=== PATIENT | male | born 1965 | race Caucasian/White ===

== ENCOUNTER 2024-11-17 14:33 | Inpatient (IN) | payer MEDICAID, SELFPAY ==
[2024-11-17] VITALS (21 sets, daily range): BP systolic 97–180; BP diastolic 63–104; PULSE 85–154; RESP 10–27; TEMP 32–37.1; O2SAT 92–100; BMI 28.2
--- NOTE | ~2024-11-17 | CT_ITS ---
EXAMINATION: CT ABDOMEN PELVIS WITH IV CONTRAST HISTORY: severe LLQ pain, distention COMPARISON: There are no prior studies for comparison. TECHNIQUE: CT scan of the abdomen and pelvis was performed following administration of 85 mL Omnipaque 350 using standard departmental protocol. Coronal and sagittal reformatted images were generated and reviewed. Oral contrast material was not administered at the request of the referring physician. This CT exam was performed with one or more of the following dose reduction techniques: automated exposure control, adjustment of the mA and/or kV according to patient size, use of iterative reconstruction technique. DLP: 818 mGy-cm FINDINGS: LOWER CHEST: There is subsegmental atelectasis at both lung bases. There is no pleural effusion. CARDIOVASCULATURE: The heart is normal in size. There is no pericardial effusion. LIVER: The liver is normal in size and contour. No liver mass is identified. The hepatic and portal veins are patent. GALLBLADDER / BILE DUCTS: The gallbladder is unremarkable. There is no intra or extrahepatic biliary ductal dilatation. SPLEEN: The spleen is normal in size. No focal splenic lesion is identified. PANCREAS: The pancreas is unremarkable in appearance. ADRENAL GLANDS: There are bilateral adrenal masses. The mass on the right measures 3.2 cm. On the left, there are 2 masses measuring 2.3 and 3.2 cm. KIDNEYS/RETROPERITONEUM: No renal calculi are identified. There is no hydronephrosis. No renal masses are identified. LYMPH NODES: No abdominal or pelvic lymphadenopathy. VASCULATURE: The abdominal aorta is normal in caliber. MESENTERY/PERITONEUM: There is a large amount of free intraperitoneal gas, consistent with bowel perforation. No ascites is identified. STOMACH: The stomach is unremarkable. SMALL BOWEL: There are matted small bowel loops in the right lower quadrant which demonstrate wall thickening. COLON: There is diffuse diverticulosis of the colon. There is wall thickening of the sigmoid colon which is adherent to small bowel loops. There is a fluid collection in the right lower quadrant measuring 5.8 x 1.5 x 2.3 cm, compatible with an abscess. APPENDIX: Normal. URINARY BLADDER/PELVIC ORGANS: The urinary bladder is collapsed, limiting evaluation. The prostate is normal in size. BONES / SOFT TISSUES: No suspicious bony or soft tissue abnormalities. CT/CT abdomen pelvis w IV con IMPRESSION: 1. Large amount of free intraperitoneal gas, consistent with bowel perforation. There is an inflammatory process in the right lower quadrant with matted small bowel loops demonstrating wall thickening adjacent to the sigmoid colon which demonstrates diverticula. There is an associated 5.8 x 1.5 x 2.3 cm abscess. 2. Findings were discussed with Dr. Arguello in the emergency room on 11/17/2024 at 4:20 PM. 3. Bilateral adrenal masses as described. In the absence of a known primary malignancy, these likely represent adenomas. If there is a known primary malignancy, adrenal protocol CT is recommended. Electronically signed by: Musa You MD 11/17/2024 04:23 PM [facility] [place]
--- NOTE | ~2024-11-17 | XR_ITS ---
CLINICAL HISTORY: ett confirmation 1 view chest x-ray Comparison: None Findings: Endotracheal tube tip 5 cm above jerome. Nonspecific right basilar consolidation. Question pneumonia, please correlate. Left lung clear. Heart size normal. No acute bony abnormality. Impression: Endotracheal tube as above Nonspecific right basilar consolidation This document has been electronically signed by: Edouard Harper MD on 11/17/2024 21:13:23
--- NOTE | ~2024-11-17 | XR_ITS ---
CLINICAL HISTORY: hypoxia 1 view chest x-ray. Comparison: None Findings: The lungs are slightly underexpanded. Ill-defined right lower lobe density noted. No effusion or pneumothorax. Cardiac and mediastinal contours are stable. No acute osseous abnormality Impression: The patient has been extubated. The new right lower lobe density most likely reflects a region of atelectasis. Continued follow-up recommended. This document has been electronically signed by: Kyle Talbot MD on 11/19/2024 14:33:38
--- NOTE | ~2024-11-17 | CT_ITS ---
EXAMINATION: CT ABDOMEN AND PELVIS WITH CONTRAST CLINICAL INFORMATION: Perforated diverticulitis. Increased leukocytosis. COMPARISON: CT dated November 17, 2024. TECHNIQUE: Multidetector volumetric images were obtained from the superior aspect of the liver through the pubic symphysis following administration 85 mL of Omnipaque 350 intravenous contrast. Sagittal and coronal reformatted images were obtained on the technologist's workstation. Oral contrast: No This CT examination was performed using dose optimization techniques as appropriate, variously including the following: *Automated exposure control *Adjustment of mA and/or kV according to patient size (this includes techniques or standardized protocols for targeted exams where dose is matched to indication/reason for exam; i.e. extremities or head) *Use of iterative reconstruction technique FINDINGS: LUNG BASES: Airspace disease with air bronchograms in the right lung base and right middle lobe. Bilateral pleural effusions, moderate volume. Pulmonary patchy groundglass in the left upper lobe and right middle lobe. LIVER, GALLBLADDER, AND BILIARY TREE: Liver measures 18 cm. No focal mass. Portal veins and hepatic veins and intrahepatic portion of the IVC are patent. No pericholecystic fluid collection or gallbladder wall thickening. No intrahepatic or extrahepatic biliary ductal dilatation. PANCREAS: Punctate calcification in the uncinate process. No focal lesion. No main pancreatic ductal dilatation. No peripancreatic fluid collections. SPLEEN: 7 cm. No focal mass. ADRENAL GLANDS: Lobulated nodular lesions both adrenal glands similar since prior examination on the right measuring 3 cm and on the left measuring 3.2 cm. KIDNEYS AND URETERS: No hydronephrosis. No gross renal mass. Subcentimeter cystic lesions in both kidneys. Normal enhancement pattern of the renal parenchyma. BLADDER: Fluid-filled nearly collapsed. GASTROINTESTINAL TRACT: Status post colostomy likely distal transverse colon. Multiple gas and fluid-filled prominent small bowel loops. Numerous diverticula throughout the large intestine. There is some edematous wall throughout the small bowel loops and the ostomy site and transverse colon. There are multiple different sizes peripheral enhancing fluid collections throughout the peritoneal cavity, the largest beneath the right abdominal rectus muscles in the peritoneal cavity into the properitoneal fat. No gross pneumoperitoneum. No pneumatosis intestinalis. There is no gas within the portal system or the mesenteric veins. ABDOMINAL WALL: Posterior surgical infraumbilical midline laparotomy with edema. Edematous ostomy site. Edema pattern throughout the deep fat planes of the right hemiabdomen and posterior abdomen lumbar region. LYMPH NODES: Numerous prominent lymph nodes in the mesentery and to a lesser extent retroperitoneum. VASCULAR: Mixed plaques throughout the distal abdominal aorta wall and iliac arteries. No aneurysm or dissection. Calcified plaques in the thoracic aorta and the coronary arteries.. PELVIC VISCERA: The prostate gland is not enlarged. Dystrophic calcifications. Mildly prominent seminal vesicles. OSSEOUS STRUCTURES: Multilevel thoracolumbar spondylosis. Schmorl node in superior endplate of T9 and the endplates of T12-L1 and L2. No acute fracture or gross listhesis in the axial skeleton. Sclerosis and the sacroiliac joints. CT/CT abdomen pelvis w IV con IMPRESSION: Status post partial bowel resection and ostomy with edematous large intestine and small intestine suggesting enterocolitis. Multifocal different sizes peritoneal abscesses. Acute airspace disease, lung bases right middle lobe and bilateral pleural effusions. Resolved pneumoperitoneum. Fleischner guidelines were followed. Electronically signed by: Dexter Osborn MD 11/24/2024 09:17 AM [facility]
--- NOTE | 2024-11-17 14:56 | ECG_ITS ---
Test Reason : SEPSIS Blood Pressure : */* mmHG Vent. Rate : 125 BPM Atrial Rate : 125 BPM P-R Int : 132 ms QRS Dur : 68 ms QT Int : 292 ms P-R-T Axes : 64 -28 49 degrees QTcB Int : 421 ms Sinus tachycardia Low voltage QRS Nonspecific ST abnormality Abnormal ECG When compared with ECG of 10-Oct-2008 14:11, Vent. rate has increased by 43 bpm QRS axis Shifted left Referred By: Annalee Ramírez Electronically Signed By: MARGIE WILKES MD
--- NOTE | 2024-11-17 15:07 | ED_ITS ---
HPI - Abdominal Pain General Chief Complaint: Abdominal Pain Stated Complaint: ABD PAIN PER EMS Time Seen by Provider: 11/17/24 14:40 Source: patient and old records reviewed Mode of arrival: ambulatory Limitations: no limitations History of Present Illness ED Provider: NAIDA FUENTES narrative: 58 yo male with no PMH other than pyloric stenosis repair as an infant who does not go to the doctor and takes no medications reports 3 days of worsening L sided abdominal pain with fevers/chills today and then nausea. He has not had any vomited. He denies any prior colonoscopy and no hx of diverticulitis. He is not able to eat or drink. He states this has never happened before. MD elicited complaint: abdominal pain Pertinent past history: none Onset (ago): day(s) (3) Pain Consistency: constant Location: [facility] Severity: moderate Quality: aching Radiation: none Migration to: no migration Exacerbating factors: eating and movement Relieving factors: nothing Associated symptoms: nausea, fever and chills Related Data Allergies Allergy/AdvReac Type Severity Reaction Status Date / Time No Known Allergies Allergy Mild NOT Verified 11/17/24 14:54 APPLICABLE Review of Systems Review of Systems Constitutional : No Weight loss, pos Fever, pos Chills ENT/Mouth : No sore throat, No Rhinorrhea Eyes: No Swelling, No Redness Cardiovascular : No Chest Pain, No SOB, NoEdema Respiratory : No Cough, No Sputum, No Wheezing Gastrointestinal : Positive Nausea, no Vomiting, positive Diarrhea, positive abdominal Pain, No Hematochezia, No Melena Genitourinary : No Dysuria, No Urinary Frequency, No Hematuria, No Urgency Musculoskeletal : No joint pain, No Myalgias, No Joint Swelling Skin : No Skin Lesions, No rash Neuro : No Weakness, No Numbness, No Dizziness, No Headache All other systems reviewed and are negative. [facility] Past Medical History Attestation statement: The following information was validated with the patient. Source: old records reviewed Medical History (Updated 11/17/24 @ 16:09 by Annalee Ramírez DO) No pertinent past medical history Social History Social History (Updated 11/17/24 @ 16:42 by Annalee Ramírez DO) Alcohol intake: former Patient Tobacco Use Status: Current everyday Tobacco user Substance Use Type: Marijuana Physical Exam ED Vital Signs: Vital Signs - 24 hr 11/17/24 14:52 11/17/24 16:00 11/17/24 16:35 Temperature 98.4 F 98.8 F Pulse Rate 124 H 113 H Respiratory Rate 20 18 Blood Pressure 174/102 H 173/95 H Pulse Oximetry 94 92 93 Oxygen Delivery Method Room Air Room Air Room Air BMI result Body Mass Index 28.2 Appearance: Alert. Oriented X3. No acute distress. Eyes: Pupils equal, round and reactive to light. ENT: Pharynx normal. Neck: Normal inspection. Neck supple. CVS: Normal heart rate and rhythm. Pulses normal. Respiratory: No respiratory distress. Breath sounds normal. Abdomen: distended with guarding and ttp in L mid abdomen Skin: Skin warm and dry. Normal skin color. Normal skin turgor. Extremities: No lower extremity edema. No calf ttp Neuro: Oriented X 3. No motor deficit. No sensory deficit. CN2-12 intact Medical Decision Making Medical Decision Making [facility] Narrative: 58 yo male no PMH but does not follow with doctors here with c/o L sided abdominal pain along with nausea and fevers/chills. He has a very tender abdomen on exam at this time basic labs, IVF x 2L, EKG, CT scan for renal colic, mass, perforation, diverticulitis. IV dilaudid for pain ordered, given exam empiric zosyn ordered. Differential Diagnosis Differential Diagnoses: The differential diagnosis associated with the presentation includes renal colic, SBO, mass, diverticulitis, perf Admission/Observation Consideration of admission/observation: Escalation of care including admission/observation considered admit to OR/surgery Consult Healthcare Provider Management of the patient was discussed with: Home Designer (Dr. Rico notified 405pm after I reviewed initial images) Dr. Rico to take him to OR Lab Data [facility] Lab Attestation statement: I reviewed the patient's lab results. 11/17/24 15:08 11/17/24 15:08 Labs: Lab Results 11/17/24 11/17/24 11/17/24 Range/Units 15:07 15:08 15:24 WBC 22.7 H (4.8-10.8) X10*3/uL RBC 5.96 H (4.60-5.80) X10*6/uL Hgb 18.3 H (14.0-18.0) g/dl Hct 51.9 (42.0-52.0) % MCV 87.1 (80.0-98.0) fL MCH 30.7 (27.0-33.0) pg MCHC 35.3 (31.0-36.0) g/dl RDW 13.3 (11.0-16.0) % Plt Count 309 (160-400) X10*3/uL MPV 8.8 L (9.4-12.4) fL Immature Gran % (Auto) 0.5 H (0.0-0.4) % Neut % (Auto) 90.8 H (45-73) % Lymph % (Auto) 4.4 L (20-40) % [place] % (Auto) 4.1 (2-11) % Eos % (Auto) 0.1 (0-4) % Baso % (Auto) 0.1 (0-2) % Lymph # (Auto) 1.0 L (1.2-4.9) X10*3/uL [place] # (Auto) 0.9 (0.1-1.2) X10*3/uL Eos # (Auto) 0.0 (0.0-0.4) X10*3/uL Baso # (Auto) 0.0 (0.0-0.2) X10*3/uL Abs Immat Gran (auto) 0.11 H (0.00-0.03) X10*3/uL Absolute Neuts (auto) 20.6 H (2.0-8.3) x10*3/uL Absolute Nucleated RBC 0.000 (0.0-0.012) X10*3/uL Nucleated RBC % (auto) 0.0 (0.0-0.2) /100WBC Smear Tech's Comments VERIFIED Sodium 137 (135-145) mmol/L Potassium 4.0 (3.3-5.1) mmol/L Chloride 102 (96-108) mmol/L Carbon Dioxide 24 (22-29) mmol/L Anion Gap 15 (12-20) BUN 18 H (9-16) mg/dL Creatinine 0.85 (0.5-1.4) mg/dL Estim Creat Clear Calc 96.8 Estimated GFR > 60 Random Glucose 138 H (60-115) mg/dL Lactic Acid 1.8 (0.5-2.0) mmol/L Calcium 10.4 H (8.4-10.2) mg/dL Magnesium 2.0 (1.6-2.6) mg/dL Total Bilirubin 0.9 (0.0-1.0) mg/dL Direct Bilirubin 0.3 (0.0-0.5) mg/dL AST 16 (5-37) U/L ALT 10 (0-40) U/L Alkaline Phosphatase 82 (39-117) U/L Troponin I High Sens < 2.7 (<3.5-35.0) ng/L Total Protein 8.2 H (6.5-8.0) g/dL Albumin 4.0 (3.5-5.0) g/dL Lipase 10 (8-78) U/L Ethyl Alcohol < 10 mg/dL Influenza Type A (TARYN) Negative (Negative) Influenza Type B (TARYN) Negative (Negative) Influenza A & B Note See Note Independent Interpretation I performed an independent interpretation of an: EKG and CT Scan (free air) Interpretation: Rate: 125 Rhythm: sinus tachycardia [place]: left Normal P waves. Normal PETE. Normal QRS complex. ST T wave : no STEFANI, normal qTC: 421 prior studies: no acute ischemia The study has been interpreted contemporaneously by me. . Radiology Impression Discussion of test interpretation with radiology: I discussed test interpretation with the radiologist and I have reviewed the radiologist's reading. Radiologist Impression: 418pm diffuse free air ?abscess 6 x 1.5. x 2cm ?abscess Independent Historian Clinical information obtained from an independent historian. History obtained from or confirmed by: EMS Medications Administered Discontinued Medications Generic Name Dose Route Start Last Admin Trade Name Rylandq PRN Reason Stop Dose Admin Hydromorphone HCl 1 mg 11/17/24 15:04 11/17/24 15:14 Hydromorphone Hcl 1 Mg/Ml Syringe IVPUSH 11/17/24 15:05 1 mg ONCE ONE Administration Protocol Hydromorphone HCl 1 mg 11/17/24 16:20 11/17/24 16:28 Hydromorphone Hcl 1 Mg/Ml Syringe IVPUSH 11/17/24 16:21 1 mg ONCE ONE Administration Protocol Lactated Ringer's 1,000 mls @ 999 mls/hr 11/17/24 15:04 11/17/24 15:36 Lr IV 11/17/24 16:04 999 mls/hr .Q1H1M ONE Administration Lactated Ringer's 1,000 mls @ 999 mls/hr 11/17/24 15:04 11/17/24 15:40 Lr IV 11/17/24 16:04 999 mls/hr .Q1H1M ONE Administration Piperacillin Sod/Tazobactam 50 mls @ 100 mls/hr 11/17/24 15:04 11/17/24 16:24 Sod 3.375 gm/ Sodium Chloride IV 11/17/24 15:33 Infused ONCE ONE Infusion Iohexol 85 ml 11/17/24 15:58 11/17/24 15:58 Iohexol 350 Mg/Ml 100 Ml Infus..Btl IV 11/17/24 15:59 85 ml ONCE ONE Administration Ondansetron HCl 4 mg 11/17/24 15:04 11/17/24 15:13 Ondansetron Hcl 4 Mg/2 Ml Vial IVPUSH 11/17/24 15:05 4 mg ONCE ONE Administration Critical Care Time Critical Care Time Critical Care Time: Yes Total Critical Care Time: 45 Attestation: IVF x 2L, IV dilaudid with improvement in pain, surgery consult I attest to this time spent taking care of the patient Discharge Plan Discharge Clinical Impression: Perforation bowel Elevated WBC count Qualifiers: Leukocytosis type: unspecified Qualified Code(s): D72.829 - Elevated white blood cell count, unspecified Patient Disposition: Admitted As Inpatient Print Language: Croatian
[2024-11-17] MEDS: ondansetron HCL 4 MG/2 ML VIAL IVPUSH (15:13)
[2024-11-17] MEDS: HYDROmorphone HCl 1 MG/ML SYRINGE IVPUSH ×2 (15:14→16:28)
[2024-11-17 15:20] LABS: Basophils Percent Auto 0.1 % (0-2); Eosinophils Percent Auto 0.1 % (0-4); Hematocrit 51.9 % (42.0-52.0); Hemoglobin 18.3 g/dl (14.0-18.0); Imm Gran Abs Auto 0.11 X10*3/uL (0.00-0.03); Imm Gran Pct Auto 0.5 % (0.0-0.4); Lymphocytes Percent Auto 4.4 % (20-40); MANUAL DIFF FLAG SCAN; Mean Corpuscular HGB Conc 35.3 g/dl (31.0-36.0); Mean Corpuscular Hemoglobin 30.7 pg (27.0-33.0); Mean Corpuscular Volume 87.1 fL (80.0-98.0); Mean Platelet Volume 8.8 fL (9.4-12.4); Monocytes Absolute Auto 0.9 X10*3/uL (0.1-1.2); Monocytes Percent Auto 4.1 % (2-11); Neutrophils Absolute Auto 20.6 x10*3/uL (2.0-8.3); Neutrophils Percent Auto 90.8 % (45-73); Platelet Count 309 X10*3/uL (160-400); Red Blood Count 5.96 X10*6/uL (4.60-5.80); Red Cell Distribution Width 13.3 % (11.0-16.0); SCAN SMEAR FLAG 1; White Blood Count 22.7 X10*3/uL (4.8-10.8)
[2024-11-17 15:29] LABS: Lactic Acid 1.8 mmol/L (0.5-2.0)
[2024-11-17] MEDS: Lactated Ringers 1,000 ML 999 ML IV ×3 (15:36→22:49)
[2024-11-17] MEDS: Piperacillin Sodium/Tazobactam 3.375 GM in 0.9 % Sodium Chloride 50 ML IV ×2 (15:37→22:05)
[2024-11-17 15:39] LABS: Troponin-I High Sensitivity < 2.7 ng/L (<3.5-35.0)
[2024-11-17 15:39] LABS: Alanine Aminotransferase 10 U/L (0-40); Anion Gap 15 (12-20); Aspartate Amino Transferase 16 U/L (5-37); Bilirubin Direct 0.3 mg/dL (0.0-0.5); Bilirubin Total 0.9 mg/dL (0.0-1.0); Blood Urea Nitrogen 18 mg/dL (9-16); Calcium 10.4 mg/dL (8.4-10.2); Carbon Dioxide 24 mmol/L (22-29); Chloride 102 mmol/L (96-108); Creatinine Clr Calc Pharmacy 96.8; Estimated Glomerular Filt Rate > 60; Ethanol < 10 mg/dL; Glucose Random 138 mg/dL (60-115); Lipase 10 U/L (8-78); Sodium 137 mmol/L (135-145); Total Protein 8.2 g/dL (6.5-8.0)
[2024-11-17 15:44] LABS: IDNOW Serial# 58CA691E; Influenza A Negative (Negative); Influenza B2 Negative (Negative)
[2024-11-17 15:48] LABS: SLIDE REVIEW VERIFIED
[2024-11-17 15:57] LABS: Alkaline Phosphatase 82 U/L (39-117)
[2024-11-17] MEDS: iohexoL 350 MG/ML 100 ML INFUS..BTL 85 ML IV (15:58)
--- NOTE | 2024-11-17 16:32 | PC.NURSE ---
Report given to SSS
[2024-11-17 16:48] LABS: INTERNATIONAL NORM RATIO 1.1 (0.9-1.1); Prothrombin Time 13.2 SEC (10.9-12.4)
--- NOTE | 2024-11-17 17:03 | P.HPGS_ITS ---
History of Present Illness History of Present Illness Date of Service: 11/17/24 Chief complaint: ABD PAIN PER EMS Narrative: Koko Thomason is a 58 year old male who presents with roughly 4 days of progressively worsening lower abdominal pain. Because of progression of symptoms, he finally sought to be evaluated emergency department. Workup demonstrates significant leukocytosis, and CT scan and pressor for massive free air and phlegmonous changes in the lower abdomen/colon most probably consistent with a perforated sigmoid diverticulitis. Patient was never sought medical attention. He does not know of any known colon comorbidities because he has never been evaluated by a medical care physician. His only past surgical history is infancy for pyloric stenosis. Chart was reviewed and patient evaluated PMFSH Past Medical History Medical History (Updated 11/17/24 @ 17:06 by Josh Rico MD) No pertinent past medical history Social History Social History (Updated 11/17/24 @ 16:42 by Annalee Ramírez DO) Alcohol intake: former Patient Tobacco Use Status: Current everyday Tobacco user Smoked in Last 30 Days: No Use of substances other than those prescribed or required for medical reasons: Yes Substance Use Type: Marijuana Advance Directives: No Advance Directives Information Provided: Yes Meds Allergies Allergy/AdvReac Type Severity Reaction Status Date / Time No Known Allergies Allergy Mild NOT Verified 11/17/24 14:54 APPLICABLE Active Medications: Current Medications Acetaminophen (Acetaminophen 325 Mg Tablet) 650 mg PO Q6H PRN PRN Reason: Pain, Mild 1-3,fever,headache Calcium Carbonate (Calcium Carbonate 750 Mg Tab.Chew) 750 mg PO Q4H PRN PRN Reason: Heartburn Magnesium Hydroxide (Milk Of Magnesia 30 Ml Oral.Susp) 30 ml PO DAILY PRN PRN Reason: Constipation Melatonin (Melatonin 3 Mg Tablet) 6 mg PO BEDTIME PRN PRN Reason: Insomnia Sodium Chloride (0.9 % Sodium Chloride Flush 3 Ml Syringe) 3 ml IVFLUSH QSHIFT TJ Physical Exam Vital Signs: Vital Signs: Last Vital Signs Temp 98.8 F 11/17/24 16:35 Pulse 113 H 11/17/24 16:35 Resp 18 11/17/24 16:35 BP 173/95 H 11/17/24 16:35 Pulse Ox 93 11/17/24 16:35 O2 Del Method Room Air 11/17/24 16:35 BMI result Body Mass Index 28.2 Const: Other: Very ill-appearing male in significant abdominal distress. Chest: Other: Chest breath sounds bilaterally, HS 1 in 2. GI: Other: Rigid abdomen throughout. Guarding, rebound, especially lower abdomen. Results Results Labs: Short CBC 11/17/24 Range/Units 15:08 WBC 22.7 H (4.8-10.8) X10*3/uL Hgb 18.3 H (14.0-18.0) g/dl Hct 51.9 (42.0-52.0) % Plt Count 309 (160-400) X10*3/uL BMP 11/17/24 15:08 Sodium 137 Potassium 4.0 Chloride 102 Carbon Dioxide 24 BUN 18 H Creatinine 0.85 Calcium 10.4 H Liver Function 11/17/24 Range/Units 15:08 Total Bilirubin 0.9 (0.0-1.0) mg/dL Direct Bilirubin 0.3 (0.0-0.5) mg/dL AST 16 (5-37) U/L ALT 10 (0-40) U/L Alkaline Phosphatase 82 (39-117) U/L Albumin 4.0 (3.5-5.0) g/dL Assessment and Plan (1) Perforation bowel: Status: Acute (2) Elevated WBC count: Qualifiers: Leukocytosis type: unspecified Qualified Code(s): D72.829 - Elevated wh ite blood cell count, unspecified Status: Acute (3) Sepsis: Status: Acute Plan Situation of perforated viscus was reviewed with the patient and emergent need for surgical intervention discussed. Risks, benefits, alternatives of exploratory laparotomy with probable bowel resection most probably sigmoid colon with end-colostomy and Tori's pouch were reviewed with the patient and included but not limited to bleeding, numbness, pain, scarring, cardiac or pulmonary issues, wound issues, ostomy issues and the patient wishes to proceed. Restorative measures will be undertaken and once in OR room was available, patient will be taken to the operating room. All questions answered. Consent signed. Quality Stroke Does the patient have a stroke diagnosis?: No VTE Prior VTE?: No VTE Risk Level:: Surgical - low VTE Device Contraindication: N/A - Device Ordered VTE Drug Contraindication: Treatment Not Indicated Procedures Date of Service Date of Service: 11/17/24
--- NOTE | 2024-11-17 17:29 | HO.ANESPROP2 ---
HPI - Anesthesia Eval Consult details Narrative: Bowel perforation PMFSH Active Problems Active Problems: All Active Problems Sepsis (Acute) Perforation bowel (Acute) Elevated WBC count (Acute) Past Medical History Medical History (Updated 11/17/24 @ 17:06 by Josh Rico MD) No pertinent past medical history Family History Family history of problems with anesthesia: No Surgical History History of Problems with Anesthesia: No Social History Social History (Updated 11/17/24 @ 16:42 by Annalee Ramírez DO) Alcohol intake: former Patient Tobacco Use Status: Current everyday Tobacco user Substance Use Type: Marijuana Meds Allergies Allergy/AdvReac Type Severity Reaction Status Date / Time No Known Allergies Allergy Mild NOT Verified 11/17/24 14:54 APPLICABLE Active Medications: Current Medications Acetaminophen (Acetaminophen 325 Mg Tablet) 650 mg PO Q6H PRN PRN Reason: Pain, Mild 1-3,fever,headache Calcium Carbonate (Calcium Carbonate 750 Mg Tab.Chew) 750 mg PO Q4H PRN PRN Reason: Heartburn Magnesium Hydroxide (Milk Of Magnesia 30 Ml Oral.Susp) 30 ml PO DAILY PRN PRN Reason: Constipation Melatonin (Melatonin 3 Mg Tablet) 6 mg PO BEDTIME PRN PRN Reason: Insomnia Sodium Chloride (0.9 % Sodium Chloride Flush 3 Ml Syringe) 3 ml IVFLUSH QSHIFT TJ Exam Height,Weight and Vital Signs: Height 5 ft 7 in Weight 81.647 kg Last Vital Signs Temp 98.8 F 11/17/24 16:35 Pulse 113 H 11/17/24 16:35 Resp 18 11/17/24 16:35 BP 173/95 H 11/17/24 16:35 Pulse Ox 93 11/17/24 16:35 O2 Del Method Room Air 11/17/24 16:35 Pertinent Lab Results Pertinent Lab Results: Laboratory Tests 11/17/24 11/17/24 11/17/24 15:07 15:08 15:24 WBC 22.7 H RBC 5.96 H Hgb 18.3 H Hct 51.9 MCV 87.1 MCH 30.7 MCHC 35.3 RDW 13.3 Plt Count 309 MPV 8.8 L Immature Gran % (Auto) 0.5 H Neut % (Auto) 90.8 H Lymph % (Auto) 4.4 L [place] % (Auto) 4.1 Eos % (Auto) 0.1 Baso % (Auto) 0.1 Lymph # (Auto) 1.0 L [place] # (Auto) 0.9 Eos # (Auto) 0.0 Baso # (Auto) 0.0 Abs Immat Gran (auto) 0.11 H Absolute Neuts (auto) 20.6 H Absolute Nucleated RBC 0.000 Nucleated RBC % (auto) 0.0 Smear Tech's Comments VERIFIED PT INR Sodium 137 Potassium 4.0 Chloride 102 Carbon Dioxide 24 Anion Gap 15 BUN 18 H Creatinine 0.85 Estim Creat Clear Calc 96.8 Estimated GFR > 60 Random Glucose 138 H Lactic Acid 1.8 Calcium 10.4 H Magnesium 2.0 Total Bilirubin 0.9 Direct Bilirubin 0.3 AST 16 ALT 10 Alkaline Phosphatase 82 Troponin I High Sens < 2.7 Total Protein 8.2 H Albumin 4.0 Lipase 10 Ethyl Alcohol < 10 Influenza Type A (TARYN) Negative Influenza Type B (TARYN) Negative Influenza A & B Note See Note Blood Type Antibody Screen 11/17/24 11/17/24 16:17 16:19 WBC RBC Hgb Hct MCV MCH MCHC RDW Plt Count MPV Immature Gran % (Auto) Neut % (Auto) Lymph % (Auto) [place] % (Auto) Eos % (Auto) Baso % (Auto) Lymph # (Auto) [place] # (Auto) Eos # (Auto) Baso # (Auto) Abs Immat Gran (auto) Absolute Neuts (auto) Absolute Nucleated RBC Nucleated RBC % (auto) Smear Tech's Comments PT 13.2 H INR 1.1 Sodium Potassium Chloride Carbon Dioxide Anion Gap BUN Creatinine Estim Creat Clear Calc Estimated GFR Random Glucose Lactic Acid Calcium Magnesium Total Bilirubin Direct Bilirubin AST ALT Alkaline Phosphatase Troponin I High Sens Total Protein Albumin Lipase Ethyl Alcohol Influenza Type A (TARYN) Influenza Type B (TARYN) Influenza A & B Note Blood Type O Positive Antibody Screen NEGATIVE Airway Mallampati Class: II TM Dist: >3cm Neck ROM: Full Adult Head Mouth w/Numbe Teeth: 1. loose Loose/Missing/Broken Teeth: No Heart: RRR Lungs: CTA Assessment and Plan Assessment Anesthesia Assessment: Anesthesia Plan Discussed and Chart Reviewed Final Anesthetic Review Family History of Problems with Anesthesia: No History of Problems with Anesthesia: No NPO: No ASA Class: II and Emergency Final Preanesthetic Review: No Changes in Pt Med Stat, Meds/Allgs Chart Reviewed, Consent Obtained/Reviewed and Anes Risks/Benef Reviewed Patient Risk: Low Procedure Risk: Intermediate Anesthetic Plan Anesthetic Plan: GA Disposition: Inp. Admit - ICU
--- NOTE | 2024-11-17 18:01 | PC.NURSE ---
transfered to OR
--- NOTE | 2024-11-17 20:11 | P.OP_ITS ---
Operative Note Operative Note Date of Service: 11/17/24 Narrative: Preoperative diagnosis: [] Perforated viscus, sepsis Postop diagnosis: [] Perforated sigmoid diverticulitis, acute suppurative peritonitis, profound fecal contamination of abdominal cavity Procedure [] exploratory laparotomy, sigmoid resection, takedown splenic flexure, end colostomy, Tori's pouch, Surgeon: [] Jacky Television Repairman: [] Type of Anesthesia: [] General Indication for surgery: [] Patient had profound perforated sigmoid diverticulitis with acute suppurative peritonitis and fecal peritonitis involving the entire abdominal cavity. Cultures were obtained. Sigmoid colon was markedly edematous, phlegmonous, thickened, with small-bowel adhered to the perforation site. Sigmoid colon was intraluminal adhered to the pelvic left sidewall and sacral promontory area. Moderate corpulent abdomen Findings: [] Patient brought to the operating room, placed on operative table supine position, after an adequate level of general anesthesia was induced, patient was abdomen was prepped and draped in usual sterile fashion using a lower midline incision, this carried down through skin, subcutaneous tissue, and linea alba. Posterior fascia and peritoneum were opened and extended along the length of the incision. A big gush of free air exited the abdominal cavity once the peritoneum was opened. Findings were as noted above. Patient had profound acute suppurative peritonitis from fecal perforation sigmoid diverticulitis. Sigmoid colon demonstrated extensive diverticular disease. Small bowel was adhered to the perforation site and taken down. Packs and retractors were placed to enhance exposure. Sigmoid colon had its lateral peritoneal reflection taken down using combination of blunt, sharp, and Bovie dissection. The sigmoid colon was intimately adhered to the left pelvic sidewall and pelvic brim as well as the posterior parietal peritoneum. Meticulous dissection using blunt, sharp, Bovie, and ligature mixture was required to free this thickened markedly phlegmonous sigmoid colon up from the surrounding structures. Once adequately mobilized, the distal colon was transected at the desired location, rectosigmoid junction ,using ANNIE thick/green stapler. The mesentery to the sigmoid colon was sequentially taken down staying very close to the mesenteric wall of the sigmoid colon using double firing of ligature device. At the left colon/sigmoid colon junction, ANNIE thick/green stapler was used to transect the bowel here. Specimen was passed off. The lateral peritoneal reflection of the left colon was taken along with the splenic flexure to allow adequate mobilization for ostomy placement to reach the proposed ostomy site without tension. The abdominal cavity was very very copiously irrigated and secured hemostasis. A left lower quadrant ostomy was made at the desired location away from the incision and the umbilicus as well as the bony prominences using a muscle- splitting incision. Ostomy was able to be brought out with the appropriate orientation through this with minimal tension and was well-perfused. Abdominal cavity was again very copiously irrigated and secured hemostasis. Incision was closed in mass closure fascia using 1. Looped PDS. Skin was closed using widely spaced interrupted inverted dermal 3-0 Vicryl sutures followed by skin ulices and dressing. Ostomy was then circumferentially secured using seromuscular to dermal interrupted 3-0 Vicryl sutures. Staple line of the ostomy was opened using Bovie. Ostomy was again viable although edematous and inflamed. Stool was coming out of this once open. Ostomy appliance was immediate placed. Incision was infiltrated with 0.5% Marcaine at completion. Sponge, needle, and instrument counts reported correct. Patient tolerated the procedure well and was to be transferred directly to the ICU intubated for continued restorative measures. EBL minimal
[2024-11-17] MEDS: propofoL 1,000 MG/100 ML VIAL 19.6 MG IVCONT (20:40)
[2024-11-17] MEDS: HYDROmorphone HCl 0.5 MG/0.5 ML SYRINGE IVPUSH (20:41)
--- NOTE | 2024-11-17 21:55 | P.PNCC_ITS ---
Subjective Subjective Date of Service: 11/17/24 Interval History: Clinical Precedent to this date: ?Patient without a significant past medical history other than pyloric stenosis repair as an infant, had presented to emergency room with complaints of 3-4 days of progressive left lower abdominal pain; he had developed fever and chills and nausea today.? He denied any vomiting.? No prior history of abdominal surgeries or pathologies.? Had not been able to eat or drink. Workup in the emergency room revealed a hypertensive, tachycardic patient who has abdominal exam is reported as distended with guarding and tenderness to palpation in the lower abdomen.? His workup reveal a white count of 22.7 H and H of 18.3 and 51.9 respectively, normal electrolytes, BUN of 18, creatinine of 8.5, lactic acid of 1.8 negative urinalysis and negative respiratory panel.? The patient underwent a CT of the abdomen and pelvis with IV contrast which showed large amount of free intraperitoneal gas consistent with bowel perforation.? Inflammatory changes in the right lower quadrant with matted small bowel loops and wall thickening adjacent to the sigmoid colon demonstrating diverticuli along with a 5.8 x 1.5 x 2.3 cm abscess.? Surgical consult was requested and the patient was immediately brought to the OR. Now, pt presents to the ICU postop day 0. status post exploratory laparotomy, sigmoid resection and takedown of splenic flexure, and colostomy and Tori's pouch all due to perforated sigmoid diverticulitis; Acute suppurative peritonitis with profound fecal contamination of the abdominal cavity.? The patient is a high risk of decompensation given significant peritonitis. Critical Care Time (minutes): 75 Physical Exam 2 Vital Signs: Vital Signs: Last Vital Signs Temp 97.1 F 11/17/24 21:38 Pulse 114 H 11/17/24 21:38 Resp 23 H 11/17/24 21:38 BP 105/69 11/17/24 21:38 Pulse Ox 93 11/17/24 21:38 O2 Del Method Mechanical Ventil ation 11/17/24 21:38 O2 Flow Rate 2 11/17/24 20:36 FiO2 30 11/17/24 21:40 BMI result Body Mass Index 28.2 SEPSIS PHYSICAL EXAM DONE AT 21:00. General:? Intubated and sedated Skin:? Mid abdominal incision covered with surgical dressing, clean, dry, intact.? Left-sided abdominal colostomy bag with fresh blood within it, clean surroundings.? Otherwise the rest of the skin is ?Intact, no lesions or rash HEENT:? Normocephalic, atraumatic, buccal mucosa dry. Cardiac:? Tachycardic 110 beats per minute, no murmurs, rubs, gallops. Pulmonary:? Clear to auscultation, no wheezes, rales or rhonchi. Abdomen:? Protuberant, distended, mid abdominal incision as above.? No bowel sounds noted. Musculoskeletal:? Passive range of motion of all 4 extremities are major joints reveal no cogwheeling, no crepitus.? There is no leg edema. Neurologic:? As above, no focal deficits. Vascular:? 2+ pulses upper and lower extremities distally.? Less than 2nd capillary refill of the finger and toes bilaterally upper and lower extremities. NEW LABORATORY DATA:? Pre-surgical laboratory data was reviewed.? Postop labs white count has come down to 14.6, H and H is 17.2 and 49.9 respectively.? Platelets 269. Repeat lactic acid is 2.2.? Sodium 135, potassium 4.7, chloride 106, carbon dioxide 20, anion gap 14, BUN 19, creatinine 0.81.? Random glucose 149, calcium 8.3, albumin 2.8. Objective Data Labs 11/18/24 04:25 11/18/24 04:25 Labs: Laboratory Results - last 24 hr 11/17/24 11/17/24 11/17/24 15:07 15:08 15:24 WBC 22.7 H RBC 5.96 H Hgb 18.3 H Hct 51.9 MCV 87.1 MCH 30.7 MCHC 35.3 RDW 13.3 Plt Count 309 MPV 8.8 L Immature Gran % (Auto) 0.5 H Neut % (Auto) 90.8 H Lymph % (Auto) 4.4 L [place] % (Auto) 4.1 Eos % (Auto) 0.1 Baso % (Auto) 0.1 Lymph # (Auto) 1.0 L [place] # (Auto) 0.9 Eos # (Auto) 0.0 Baso # (Auto) 0.0 Abs Immat Gran (auto) 0.11 H Absolute Neuts (auto) 20.6 H Absolute Nucleated RBC 0.000 Nucleated RBC % (auto) 0.0 Smear Tech's Comments VERIFIED PT INR Sodium 137 Potassium 4.0 Chloride 102 Carbon Dioxide 24 Anion Gap 15 BUN 18 H Creatinine 0.85 Estim Creat Clear Calc 96.8 Estimated GFR > 60 Random Glucose 138 H Lactic Acid 1.8 Calcium 10.4 H Magnesium 2.0 Total Bilirubin 0.9 Direct Bilirubin 0.3 AST 16 ALT 10 Alkaline Phosphatase 82 Troponin I High Sens < 2.7 Total Protein 8.2 H Albumin 4.0 Lipase 10 Ethyl Alcohol < 10 Influenza Type A (TARYN) Negative Influenza Type B (TARYN) Negative Influenza A & B Note See Note Blood Type Antibody Screen 11/17/24 11/17/24 16:17 16:19 WBC RBC Hgb Hct MCV MCH MCHC RDW Plt Count MPV Immature Gran % (Auto) Neut % (Auto) Lymph % (Auto) [place] % (Auto) Eos % (Auto) Baso % (Auto) Lymph # (Auto) [place] # (Auto) Eos # (Auto) Baso # (Auto) Abs Immat Gran (auto) Absolute Neuts (auto) Absolute Nucleated RBC Nucleated RBC % (auto) Smear Tech's Comments PT 13.2 H INR 1.1 Sodium Potassium Chloride Carbon Dioxide Anion Gap BUN Creatinine Estim Creat Clear Calc Estimated GFR Random Glucose Lactic Acid Calcium Magnesium Total Bilirubin Direct Bilirubin AST ALT Alkaline Phosphatase Troponin I High Sens Total Protein Albumin Lipase Ethyl Alcohol Influenza Type A (TARYN) Influenza Type B (TARYN) Influenza A & B Note Blood Type O Positive Antibody Screen NEGATIVE Progress Note: A&P Assessment and plan (1) Perforation bowel: Status: Acute (2) Sepsis: Status: Acute Assessment and Plan: ASSESSMENT : 1. Postop day 0. status post exploratory laparotomy, sigmoid resection and takedown of splenic flexure, and colostomy and Tori's pouch all due to perforated sigmoid diverticulitis by Dr Rico 2. Acute suppurative peritonitis with profound fecal contamination of the abdominal cavity post intra-op washout 3. Acute sepsis due to the above 4. Acute kidney injury with BUN to creatinine ratio greater than 20 due to volume depletion 5. Clinical dehydration 6. Acute hypoalbuminemia 7. Acute hemo concentration due to 5. 8. Acute metabolic and lactic acidosis due to all the above. 9. Incidental bilateral adrenal masses likely to represent adenomas but in need of outpatient follow-up. Plan PLAN OF CARE: The patient was transferred to the ICU from the PACU given his high risk of decompensation.? He has received 1.5 L of fluid thus far, an additional 1 L of lactated Ringer's will be given followed by maintenance fluids, albumin replacement.? I will start him back on Zosyn every 6 hours and will cover him with a single dose of Diflucan, which can be continued upon consulting with Dr. Livingston. ?We will continue with hydration, monitor and replace electrolytes as needed.? Patient will be better off continuing to be intubated and sedated.? At this point there is no need for central line as there is plenty of access and the patient does not need vasopressor support. GI PROPHYLAXIS:? IV ppi DVT PROPHYLAXIS:? Pneumatic stockings while in bed. Follow-up focus sepsis exam done at 03:00 on 11/18/2024 VS 111/64, 71, 18, 93% on room air, 98.1 F General:? Intubated and sedated Skin:? Mid abdominal incision covered with surgical dressing, clean, dry, intact.? Left-sided abdominal colostomy bag with fresh blood within it; otherwise unchanged. Cardiac:? Regular, clear S1-S2, no murmurs, rubs, gallops. Pulmonary:? Clear to auscultation, no wheezes, rales or rhonchi. Abdomen:? Protuberant, distended, mid abdominal incision as above.? No bowel sounds noted. Vascular:? 2+ pulses upper and lower extremities distally.? Less than 2nd capillary refill of the finger and toes bilaterally upper and lower extremities. Continue with the above-mentioned plan. Critical care time used for critical evaluation of this patient, diagnosis, treatment and coordination of care, review her records and documentation TOTAL CRITICAL CARE TIME??75 MIN discussion and coordination with consultants, completely separate from any procedures performed. Patient's care was discussed in detail with Dr. Livingston is aware of all the above as well as the plan of care for this patient. Quality Stroke Does the patient have a stroke diagnosis?: No VTE Prior VTE?: No VTE Risk Level:: Surgical - low VTE Device Contraindication: N/A - Device Ordered VTE Drug Contraindication: Treatment Not Indicated
[2024-11-17] MEDS: Lactated Ringers 1,000 ML 100 ML IVCONT (21:56)
[2024-11-17 22:00] LABS: Appearance Urine Clear; Color Urine Dark Yellow; Glucose Urine UA Negative (Negative); Leukocyte Esterase Urine Negative (Negative); Nitrite Urine Negative (Negative); Specific Gravity - Urine >= 1.030 (1.005-1.025); UMIC TRIGGER UACC YES; Urine Blood Large (3+) (Negative); Urine Ketones Negative (Negative); Urine Protein 100 (2+) mg/dL (Neg-Trace)
[2024-11-17 22:11] LABS: Bacteria Urine None Seen (None Seen); Granular Casts Urine Present; RBC Urine >20 /HPF (0-2); WBC Urine 0-5 /HPF (0-5)
[2024-11-17 22:14] LABS: Basophils Percent Auto 0.2 % (0-2); Hematocrit 49.1 % (42.0-52.0); Hemoglobin 17.2 g/dl (14.0-18.0); Imm Gran Abs Auto 0.03 X10*3/uL (0.00-0.03); Imm Gran Pct Auto 0.2 % (0.0-0.4); Lymphocytes Absolute Auto 0.6 X10*3/uL (1.2-4.9); Lymphocytes Percent Auto 4.2 % (20-40); MANUAL DIFF FLAG SCAN; Mean Corpuscular Volume 88.6 fL (80.0-98.0); Mean Platelet Volume 9.1 fL (9.4-12.4); Monocytes Absolute Auto 0.5 X10*3/uL (0.1-1.2); Monocytes Percent Auto 3.3 % (2-11); Neutrophils Absolute Auto 13.5 x10*3/uL (2.0-8.3); Neutrophils Percent Auto 92.1 % (45-73); Platelet Count 269 X10*3/uL (160-400); Red Blood Count 5.54 X10*6/uL (4.60-5.80); Red Cell Distribution Width 13.2 % (11.0-16.0); SCAN SMEAR FLAG 1; White Blood Count 14.6 X10*3/uL (4.8-10.8)
[2024-11-17 22:26] LABS: Alanine Aminotransferase < 6 U/L (0-40); Albumin Level 2.8 g/dL (3.5-5.0); Alkaline Phosphatase 58 U/L (39-117); Anion Gap 14 (12-20); Aspartate Amino Transferase 14 U/L (5-37); Bilirubin Total 0.9 mg/dL (0.0-1.0); Blood Urea Nitrogen 19 mg/dL (9-16); Calcium 8.3 mg/dL (8.4-10.2); Carbon Dioxide 20 mmol/L (22-29); Chloride 106 mmol/L (96-108); Creatinine Clr Calc Pharmacy 101.6; Estimated Glomerular Filt Rate > 60; Glucose Random 149 mg/dL (60-115); Magnesium 1.8 mg/dL (1.6-2.6); Phosphorus 3.9 mg/dL (2.7-4.5); Potassium 4.7 mmol/L (3.3-5.1); Sodium 135 mmol/L (135-145); Total Protein 5.5 g/dL (6.5-8.0)
[2024-11-17 22:31] LABS: Lactic Acid 2.2 mmol/L (0.5-2.0)
[2024-11-17] MEDS: propofoL 1,000 MG/100 ML VIAL 24.49 MG IVCONT (22:43)
[2024-11-17] MEDS: Fluconazole in NaCl,Iso-Osm 200 MG/100 ML PIGGYBACK 100 MG IV (22:46)
[2024-11-17] MEDS: Albumin Human 25 % 100 ML 133.33 ML IV ×2 (22:54→23:40)
[2024-11-17] MEDS: 0.9 % Sodium Chloride Flush 3 ML SYRINGE IVFLUSH (23:44)
[2024-11-18] VITALS (43 sets, daily range): BP systolic 86–151; BP diastolic 49–89; PULSE 86–112; RESP 18–30; TEMP 32–37.4; O2SAT 89–99; BMI 26.2; BMI 26.6
[2024-11-18 00:04] LABS: Amphetamine Screen Urine Not Detected (Not Detect); Barbiturates, Urine Not Detected (Not Detect); Benzodiazepines Screen Urine Not Detected (Not Detect); Buprenorphine Scr Not Detected (Not Detect); Cannabinoid Screen Urine POSITIVE (Not Detect); Cocaine Screen Urine Not Detected (Not Detect); Fentanyl, urine POSITIVE (Not Detect); Methadone Screen, Urine Not Detected (Not Detect); Opiate Screen Urine Not Detected (Not Detect); Oxycodone Screen Urine Not Detected (Not Detect); Phencyclidine Screen Urine Not Detected (Not Detect)
[2024-11-18 00:08] LABS: Reflex Lactate? Lactic Acid Added
[2024-11-18 00:49] LABS: ~Lactic Acid-LAB USE ONLY 1.4 mmol/L (0.5-2.0)
[2024-11-18] MEDS: fentaNYL citrate/NS 1,000 MCG/100 ML PLAST..BAG 5 MCG IVCONT (02:20)
[2024-11-18] MEDS: propofoL 1,000 MG/100 ML VIAL 24.49 MG IVCONT ×3 (02:27→10:11)
[2024-11-18] MEDS: Piperacillin Sodium/Tazobactam 3.375 GM in 0.9 % Sodium Chloride 50 ML IV ×4 (03:38→22:06)
[2024-11-18] MEDS: Albumin Human 25 % 100 ML 133.33 ML IV ×4 (04:10→08:53)
[2024-11-18 04:41] LABS: VBG Base Excess -0.2 mmol/L; VBG HCO3 22 mmol/L (22-26); VBG pCO2 29 mmHg; VBG pH 7.48 (7.32-7.43); VBG pO2 100 mmHg
[2024-11-18 04:48] LABS: Venous Blood Gas Refer to POC result
[2024-11-18 05:01] LABS: Hematocrit 39.4 % (42.0-52.0); Hemoglobin 13.8 g/dl (14.0-18.0); Mean Corpuscular Hemoglobin 30.9 pg (27.0-33.0); Mean Corpuscular Volume 88.3 fL (80.0-98.0); Mean Platelet Volume 9.6 fL (9.4-12.4); Platelet Count 246 X10*3/uL (160-400); Red Blood Count 4.46 X10*6/uL (4.60-5.80); Red Cell Distribution Width 13.4 % (11.0-16.0)
[2024-11-18 05:02] LABS: WBC ABN SCTR FOR CBC 1
[2024-11-18 05:11] LABS: Alanine Aminotransferase < 6 U/L (0-40); Alkaline Phosphatase 39 U/L (39-117); Anion Gap 14 (12-20); Aspartate Amino Transferase 21 U/L (5-37); Blood Urea Nitrogen 17 mg/dL (9-16); Carbon Dioxide 19 mmol/L (22-29); Chloride 109 mmol/L (96-108); Creatinine Clr Calc Pharmacy 89.6; Estimated Glomerular Filt Rate > 60; Glucose Random 128 mg/dL (60-115); Magnesium 1.9 mg/dL (1.6-2.6); Phosphorus 2.7 mg/dL (2.7-4.5); Potassium 4.8 mmol/L (3.3-5.1); Sodium 137 mmol/L (135-145); Total Protein 5.5 g/dL (6.5-8.0)
[2024-11-18] MEDS: Pantoprazole Sodium 40 MG/10 ML VIAL IVPUSH (05:21)
[2024-11-18] MEDS: Norepinephrine Bitartrate/D5W 8 MG/250 ML PLAST..BAG 7.11 MG IVCONT (05:29)
[2024-11-18 05:43] LABS: Band Neutrophils Percent 14 % (3-5); Lymphocytes Absolute Manual 1.7 X10*3/uL (1.2-4.9); Lymphocytes Percent Manual 11 % (20-40); Monocytes Absolute Manual 0.5 X10*3/uL (0.1-1.2); Monocytes Percent Manual 3 % (2-11); Neutrophils Absolute Manual 12.9 X10*3/uL (2.0-8.3); Neutrophils Percent Manual 72 % (45-73)
[2024-11-18 05:45] LABS: Platelet Estimate NORMAL (NORMAL); Platelet Morphology Comment NORMAL; RBC Morphology NORMAL
--- NOTE | 2024-11-18 06:04 | PC.NURSE ---
Pt to ICU from PACU at 2135, intubated and sedated on propofol?@ 50 mcg/kg/min. ETT #7.5 24 cm?@ lip, on AC settings - see vent assessment. HR 100-110s ST on tele, MAP > 65 -? LR bolus, albumin, zosyn, and fluconazole ordered and administered. Midline abdominal dressing c/d/i, colostomy with small amount of bloody?drainage, stoma red and moist. Safety measures in place. 0230- pt becoming increasingly?restless and reaching towards abdomen, RR 30s. PA made aware, started on fentanyl gtt at 50 mcg/hr for pain control and sedation.? 0530- pt bp soft 86/58, per PA levophed gtt started to maintain?MAP >70. See emar for titrations.?
[2024-11-18] MEDS: Lactated Ringers 1,000 ML 100 ML IVCONT ×2 (07:33→16:35)
[2024-11-18] MEDS: 0.9 % Sodium Chloride Flush 3 ML SYRINGE IVFLUSH ×2 (07:37→15:39)
[2024-11-18] MEDS: Chlorhexidine Gluc Oral Rinse 15 ML MOUTHWASH BUCCAL ×2 (08:53→14:24)
--- NOTE | 2024-11-18 10:15 | MHC.CLN ---
NUTRITION PATIENT INTUBATED AND SEDATED. PERFORATED BOWEL WITH SEPSIS, S/P SURGERY. IF PPN NEEDED, RECOMMEND START PPN AT 40 ML PER HOUR TO PROVIDE 41 G PROTEIN, 96 G DEXTROSE, 480 KCALS. REPLETE LYTES NEEDED. TOTAL KCALS WITH [id number] KCALS (53% OF ESTIMATED NEEDS). FOLLOW FOR PLAN OF CARE. COMPLETE NUTRITION ASSESSMENT TO FOLLOW.
[2024-11-18 11:23] LABS: MRSA Nasal PCR POSITIVE (Negative); SA Nasal PCR POSITIVE (Negative)
[2024-11-18] MEDS: fentaNYL citrate/NS 1,000 MCG/100 ML PLAST..BAG 7.5 MCG IVCONT (12:50)
[2024-11-18] MEDS: dexmedeTOMIDidine HCL/NS 400 MCG/100 ML INFUS..BTL 19.25 MCG IVCONT (12:53)
--- NOTE | 2024-11-18 12:59 | PHA.MEDREC ---
Addendum entered by Scarlet Calderón RPh 11/18/24 14:33: MED REC REVIEWED BY HIRAM Original Note: Pharmacy Consult ? Medication Reconciliation Pharmacy has completed the medication reconciliation. Patient is intubated and sedated. Per MD note: does not go to the doctor and takes no medications .
--- NOTE | 2024-11-18 14:06 | HO.POSTANES ---
Post Anesthesia Evaluation Post Anesthesia Evaluation Date of Service: 11/18/24 Vital Signs: Vital Signs Temp Pulse Resp BP Pulse Ox O2 Del Method FiO2 11/18/24 13:15 25 11/18/24 13:14 102 H 125/76 11/18/24 13:00 99.3 F 101 H 21 H 125/76 93 Mechanical Ventilation 11/18/24 12:00 93 40 11/18/24 12:00 98.8 F 97 20 113/74 95 Mechanical Ventilation 11/18/24 11:00 98.8 F 98 20 107/67 93 Mechanical Ventilation 11/18/24 10:00 98.6 F 95 18 112/75 95 Mechanical Ventilation 11/18/24 09:00 98.4 F 96 25 H 110/66 94 Mechanical Ventilation 11/18/24 08:49 40 11/18/24 08:00 99.1 F 108 H 28 H 110/76 95 Mechanical Ventilation 11/18/24 07:39 95 40 11/18/24 07:24 103 H 93/50 L 11/18/24 07:00 99.1 F 98 18 99/58 L 94 Mechanical Ventilation 11/18/24 06:14 96 94/49 L 11/18/24 06:00 98.8 F 108 H 18 98/53 L 95 Mechanical Ventilation 11/18/24 05:29 100 86/58 L 11/18/24 05:00 97.9 F 103 H 20 93/56 L 95 40 11/18/24 04:19 40 11/18/24 04:00 98.8 F 95 20 97/65 94 Mechanical Ventilation 11/18/24 03:49 94 40 11/18/24 03:00 102 H 22 H 105/67 95 Mechanical Ventilation 11/18/24 02:20 30 H Anesthesia: General Endotracheal-GETA Mental Status: Sedated Pain Control: Satisfactory Nausea/Vomiting: None Hydration: Adequate Anesthesia-Related Issues: No Anes. Related Issues
[2024-11-18] MEDS: propofoL 1,000 MG/100 ML VIAL 14.7 MG IVCONT (14:25)
--- NOTE | 2024-11-18 14:46 | PM.PNGS ---
Subjective Subjective Date of Service: 11/18/24 Interval history: Uneventful evening. Patient on vent sedated. Ostomy putting out stool. Physical Exam Vital Signs: Vital Signs: Last Vital Signs Temp 98.8 F 11/18/24 14:00 Pulse 86 11/18/24 14:00 Resp 25 H 11/18/24 14:00 BP 112/73 11/18/24 14:00 Pulse Ox 95 11/18/24 14:00 O2 Del Method Mechanical Ventil ation 11/18/24 14:00 O2 Flow Rate 2 11/17/24 20:36 FiO2 25 11/18/24 14:00 BMI result Body Mass Index 26.6 GI: Other: Incision clean dry and intact ulices in place. Under dressing applied. Ostomy is noted above copious amount of stool Objective Data Active Medications Acetaminophen (Acetaminophen 325 Mg Tablet) 650 mg PO Q6H PRN PRN Reason: Pain, Mild 1-3,fever,headache Chlorhexidine Gluconate (Chlorhexidine Gluc Oral Rinse 15 Ml Mouthwash) 15 ml BUCCAL TID [facility] Last Admin: 11/18/24 14:24 Dose: 15 ml Documented By: DARLINE Propofol (Diprivan) 1,000 mg in 100 mls @ 0 mls/hr IVCONT .Q0M [facility]; Protocol Last Titration: 11/18/24 14:25 Dose: 20 mcg/kg/min, 9.8 mls/hr Documented By: DARLINE Lactated Ringer's (Lr) 1,000 mls @ 100 mls/hr IVCONT .Q10H [facility] Last Admin: 11/18/24 07:33 Dose: 100 mls/hr Documented By: DARLINE Piperacillin Sod/Tazobactam (Sod 3.375 gm/ Sodium Chloride) 50 mls @ 100 mls/hr IV Q6H [facility] Last Infusion: 11/18/24 11:16 Dose: Infused Documented By: DARLINE Fentanyl (Sublimaze/Ns) 1,000 mcg in 100 mls @ 0 mls/hr IVCONT .Q0M [facility]; Protocol Last Admin: 11/18/24 12:50 Dose: 75 mcg/hr, 7.5 mls/hr Documented By: DARLINE Norepinephrine Bitartrate (Levophed) 8 mg in 250 mls @ 0 mls/hr IVCONT .Q0M [facility]; Protocol Last Titration: 11/18/24 13:14 Dose: 0.07 mcg/kg/min, 9.95 mls/hr Documented By: DARLINE Dexmedetomidine HCl (Precedex) 400 mcg in 100 mls @ 0 mls/hr IVCONT .Q0M [facility]; Protocol Last Admin: 11/18/24 12:53 Dose: 1 mcg/kg/hr, 19.25 mls/hr Documented By: DARLINE Naloxone HCl (Naloxone Hcl 0.4 Mg/Ml Vial) 0.04 mg IVPUSH Q5M PRN PRN Reason: Excessive sedation or RR < 8 Naloxone HCl (Naloxone Hcl 0.4 Mg/Ml Vial) 0.2 mg IVPUSH Q2M PRN PRN Reason: Excessive sedation or RR < 8 Pantoprazole Sodium (Pantoprazole Sodium 40 Mg/10 Ml Vial) 40 mg IVPUSH DAILY@0630 [facility] Last Admin: 11/18/24 05:21 Dose: 40 mg Documented By: CIARA Sodium Chloride (0.9 % Sodium Chloride Flush 3 Ml Syringe) [facility] Last Admin: 11/18/24 07:37 Dose: 3 ml Documented By: DARLINE Labs 11/18/24 04:25 11/18/24 04:25 Labs: Laboratory Results - last 24 hr 11/17/24 11/17/24 11/17/24 15:07 15:08 15:24 MCV 87.1 MCH 30.7 MCHC 35.3 RDW 13.3 Plt Count 309 MPV 8.8 L Immature Gran % (Auto) 0.5 H Neut % (Auto) 90.8 H Lymph % (Auto) 4.4 L [place] % (Auto) 4.1 Eos % (Auto) 0.1 Baso % (Auto) 0.1 Lymph # (Auto) 1.0 L [place] # (Auto) 0.9 Eos # (Auto) 0.0 Baso # (Auto) 0.0 Abs Immat Gran (auto) 0.11 H Absolute Neuts (auto) 20.6 H Absolute Nucleated RBC 0.000 Nucleated RBC % (auto) 0.0 Neutrophils % (Manual) Band Neutrophils % Lymphocytes % (Manual) Monocytes % (Manual) Abs Neuts (Manual) Lymphocytes # (Manual) Monocytes # (Manual) Platelet Estimate Plt Morphology Comment RBC Morphology Smear Tech's Comments VERIFIED PT INR VBG pH VBG pCO2 VBG pO2 VBG HCO3 VBG O2 Saturation VBG Base Excess Anion Gap 15 Estim Creat Clear Calc 96.8 Estimated GFR > 60 Random Glucose 138 H Lactic Acid 1.8 Lactic Acid F/U @ 2Hr Calcium 10.4 H Phosphorus Magnesium 2.0 Total Bilirubin 0.9 Direct Bilirubin 0.3 AST 16 ALT 10 Alkaline Phosphatase 82 Total Protein 8.2 H Albumin 4.0 Lipase 10 Urine Color Urine Appearance Urine pH Ur Specific [place] Urine Protein Urine Glucose (UA) Urine Ketones Urine Blood Urine Nitrite Ur Leukocyte Esterase Urine RBC Urine WBC Ur Squamous Epith Cells Urine Bacteria Hyaline Casts Granular Casts Nasal Screen MRSA (PCR) Nasal S. aureus Screen Nasal MRSA/S.aureus Interp Urine Opiates Screen Ur Buprenorphine Scrn Ur Oxycodone Screen Urine Methadone Screen Urine Fentanyl Screen Ur Barbiturates Screen Ur Phencyclidine Scrn Ur Amphetamines Screen U Benzodiazepines Scrn Urine Cocaine Screen U Marijuana (THC) Screen Ethyl Alcohol < 10 Influenza Type A (TARYN) Negative Influenza Type B (TARYN) Negative Influenza A & B Note See Note Blood Type Antibody Screen 11/17/24 11/17/24 11/17/24 16:17 16:19 21:49 MCV MCH MCHC RDW Plt Count MPV Immature Gran % (Auto) Neut % (Auto) Lymph % (Auto) [place] % (Auto) Eos % (Auto) Baso % (Auto) Lymph # (Auto) [place] # (Auto) Eos # (Auto) Baso # (Auto) Abs Immat Gran (auto) Absolute Neuts (auto) Absolute Nucleated RBC Nucleated RBC % (auto) Neutrophils % (Manual) Band Neutrophils % Lymphocytes % (Manual) Monocytes % (Manual) Abs Neuts (Manual) Lymphocytes # (Manual) Monocytes # (Manual) Platelet Estimate Plt Morphology Comment RBC Morphology Smear Tech's Comments PT 13.2 H INR 1.1 VBG pH VBG pCO2 VBG pO2 VBG HCO3 VBG O2 Saturation VBG Base Excess Anion Gap Estim Creat Clear Calc Estimated GFR Random Glucose Lactic Acid Lactic Acid F/U @ 2Hr Calcium Phosphorus Magnesium Total Bilirubin Direct Bilirubin AST ALT Alkaline Phosphatase Total Protein Albumin Lipase Urine Color Dark Yellow Urine Appearance Clear Urine pH 6.0 Ur Specific [place] >= 1.030 H Urine Protein 100 (2+) H Urine Glucose (UA) Negative Urine Ketones Negative Urine Blood Large (3+) H Urine Nitrite Negative Ur Leukocyte Esterase Negative Urine RBC >20 H Urine WBC 0-5 Ur Squamous Epith Cells 3-5 Urine Bacteria None Seen Hyaline Casts 3-5 Granular Casts Present Nasal Screen MRSA (PCR) Nasal S. aureus Screen Nasal MRSA/S.aureus Interp Urine Opiates Screen Not Detected Ur Buprenorphine Scrn Not Detected Ur Oxycodone Screen Not Detected Urine Methadone Screen Not Detected Urine Fentanyl Screen POSITIVE H Ur Barbiturates Screen Not Detected Ur Phencyclidine Scrn Not Detected Ur Amphetamines Screen Not Detected U Benzodiazepines Scrn Not Detected Urine Cocaine Screen Not Detected U Marijuana (THC) Screen POSITIVE H Ethyl Alcohol Influenza Type A (TARYN) Influenza Type B (TARYN) Influenza A & B Note Blood Type O Positive Antibody Screen NEGATIVE 11/17/24 11/18/24 11/18/24 22:04 00:28 04:25 MCV 88.6 88.3 MCH 31.0 30.9 MCHC 35.0 35.0 RDW 13.2 13.4 Plt Count 269 246 MPV 9.1 L 9.6 Immature Gran % (Auto) 0.2 Cancelled Neut % (Auto) 92.1 H Cancelled Lymph % (Auto) 4.2 L Cancelled [place] % (Auto) 3.3 Cancelled Eos % (Auto) 0.0 Cancelled Baso % (Auto) 0.2 Cancelled Lymph # (Auto) 0.6 L Cancelled [place] # (Auto) 0.5 Cancelled Eos # (Auto) 0.0 Cancelled Baso # (Auto) 0.0 Cancelled Abs Immat Gran (auto) 0.03 Cancelled Absolute Neuts (auto) 13.5 H Cancelled Absolute Nucleated RBC 0.000 0.000 Nucleated RBC % (auto) 0.0 0.0 Neutrophils % (Manual) 72 Band Neutrophils % 14 H Lymphocytes % (Manual) 11 L Monocytes % (Manual) 3 Abs Neuts (Manual) 12.9 H Lymphocytes # (Manual) 1.7 Monocytes # (Manual) 0.5 Platelet Estimate NORMAL Plt Morphology Comment NORMAL RBC Morphology NORMAL Smear Tech's Comments PT INR VBG pH VBG pCO2 VBG pO2 VBG HCO3 VBG O2 Saturation VBG Base Excess Anion Gap 14 14 Estim Creat Clear Calc 101.6 89.6 Estimated GFR > 60 > 60 Random Glucose 149 H 128 H Lactic Acid 2.2 H* Lactic Acid F/U @ 2Hr 1.4 Calcium 8.3 L D 8.0 L Phosphorus 3.9 2.7 Magnesium 1.8 1.9 Total Bilirubin 0.9 1.0 Direct Bilirubin AST 14 21 ALT < 6 < 6 Alkaline Phosphatase 58 39 Total Protein 5.5 L 5.5 L Albumin 2.8 L 3.0 L Lipase Urine Color Urine Appearance Urine pH Ur Specific [place] Urine Protein Urine Glucose (UA) Urine Ketones Urine Blood Urine Nitrite Ur Leukocyte Esterase Urine RBC Urine WBC Ur Squamous Epith Cells Urine Bacteria Hyaline Casts Granular Casts Nasal Screen MRSA (PCR) POSITIVE A Nasal S. aureus Screen POSITIVE A Nasal MRSA/S.aureus Interp SEE NOTE Urine Opiates Screen Ur Buprenorphine Scrn Ur Oxycodone Screen Urine Methadone Screen Urine Fentanyl Screen Ur Barbiturates Screen Ur Phencyclidine Scrn Ur Amphetamines Screen U Benzodiazepines Scrn Urine Cocaine Screen U Marijuana (THC) Screen Ethyl Alcohol Influenza Type A (TARYN) Influenza Type B (TARYN) Influenza A & B Note Blood Type Antibody Screen 11/18/24 04:37 MCV MCH MCHC RDW Plt Count MPV Immature Gran % (Auto) Neut % (Auto) Lymph % (Auto) [place] % (Auto) Eos % (Auto) Baso % (Auto) Lymph # (Auto) [place] # (Auto) Eos # (Auto) Baso # (Auto) Abs Immat Gran (auto) Absolute Neuts (auto) Absolute Nucleated RBC Nucleated RBC % (auto) Neutrophils % (Manual) Band Neutrophils % Lymphocytes % (Manual) Monocytes % (Manual) Abs Neuts (Manual) Lymphocytes # (Manual) Monocytes # (Manual) Platelet Estimate Plt Morphology Comment RBC Morphology Smear Tech's Comments PT INR VBG pH 7.48 H VBG pCO2 29 VBG pO2 100 VBG HCO3 22 VBG O2 Saturation 99.0 VBG Base Excess -0.2 Anion Gap Estim Creat Clear Calc Estimated GFR Random Glucose Lactic Acid Lactic Acid F/U @ 2Hr Calcium Phosphorus Magnesium Total Bilirubin Direct Bilirubin AST ALT Alkaline Phosphatase Total Protein Albumin Lipase Urine Color Urine Appearance Urine pH Ur Specific [place] Urine Protein Urine Glucose (UA) Urine Ketones Urine Blood Urine Nitrite Ur Leukocyte Esterase Urine RBC Urine WBC Ur Squamous Epith Cells Urine Bacteria Hyaline Casts Granular Casts Nasal Screen MRSA (PCR) Nasal S. aureus Screen Nasal MRSA/S.aureus Interp Urine Opiates Screen Ur Buprenorphine Scrn Ur Oxycodone Screen Urine Methadone Screen Urine Fentanyl Screen Ur Barbiturates Screen Ur Phencyclidine Scrn Ur Amphetamines Screen U Benzodiazepines Scrn Urine Cocaine Screen U Marijuana (THC) Screen Ethyl Alcohol Influenza Type A (TARYN) Influenza Type B (TARYN) Influenza A & B Note Blood Type Antibody Screen Microbiology Microbiology Results: Microbiology 11/17/24 19:00 Gram Stain - Final Abdomen - Abdominal Routine Culture - Preliminary Culture in progress. Anaerobic Culture - Preliminary Culture in progress. 11/17/24 15:07 Blood Culture - Preliminary Blood - Venous Prelim: GNR Gram Stain only Procedures Date of Service Date of Service: 11/18/24 Progress Note: A&P Assessment and plan (1) Status post exploratory laparotomy: Status: Acute (2) Perforation of sigmoid colon due to diverticulitis: Status: Acute (3) Sepsis: Status: Acute Plan Continued restorative measures, IV fluids, IV antibiotics, follow urine output, serial labs, vent and wean per ICU team Time Spent With Patient Time: Total time managing care of this patient today ____ minutes. Quality Stroke Does the patient have a stroke diagnosis?: No VTE Prior VTE?: No VTE Risk Level:: Surgical - low VTE Device Contraindication: N/A - Device Ordered VTE Drug Contraindication: Treatment Not Indicated
--- NOTE | 2024-11-18 16:18 | PC.NURSE ---
Assumed care at 0700- pt vented and sedated. Cross titration from propofol to precedex started- see MAR. PSV trial initiated- see vent assessment. B/L soft wrist restraints in place per MD order. RASS -2/-3. Pt agitated and reaching for ETT when awake. At approx 1550 pt. self extubated- this RN, RT, and pigment furnace tender at bedside immediately. All sedation paused, oxymask 7 L applied, O2 sats sustaining >92%. Pt. with strong cough, producing white sputum, LS CTA, no strido appreciated.. Pt. able to talk- AOx4. Pt. SR on tele, HR 70s-90s. Remains on Norepinephrine gtt, titrated per DEC. Aguirre in place, draining dark yellow urine. New ostomy with moist pink stoma, small amount of dark bloody stool. Midline incision dsg changed with Dr. Rico at bedside- small amount of serosanguineous drainage noted. Q2 oral care and repositioning performed, Hovermat system in place, call siddiqui within reach. Plan of care ongoing.
--- NOTE | 2024-11-18 16:42 | PC.RT ---
Pt found to have self extubated. Pt noted restrained. Pt was placed on 7 lpm oxymask and observed. No stridor was noted, pt able to phonate. aware.
[2024-11-18] MEDS: HYDROmorphone HCl 0.5 MG/0.5 ML SYRINGE IVPUSH ×2 (18:01→20:25)
--- NOTE | 2024-11-18 18:08 | P.PNCC_ITS ---
Subjective Subjective Date of Service: 11/18/24 Critical Care Time (minutes): 38 Comment: On ventilator support this morning, later in the afternoon patient got out of part of the ET tube so it was completely removed by us while closely monitoring his respiratory status. Physical Exam 2 Vital Signs: Vital Signs: Last Vital Signs Temp 98.4 F 11/18/24 15:00 Pulse 99 11/18/24 17:39 Resp 28 H 11/18/24 17:00 BP 114/83 11/18/24 17:39 Pulse Ox 90 L 11/18/24 17:30 O2 Del Method Oxymask 11/18/24 17:30 O2 Flow Rate 7 11/18/24 17:00 FiO2 25 11/18/24 16:00 Oxygen Flow Rate 7 11/18/24 17:30 BMI result Body Mass Index 26.6 General: acute distress, ill appearing and tired appearing Nutritional Appearance: well nourished and overweight Eyes: appearance normal, both eyes and all related structures; Alignment and Position: alignment normal and position normal Neck: No lymphadenopathy, no thyromegaly Resp: bilateral air entry equal, occasional added sounds present Cardio: Regular rate, regular rhythm; Heart sounds: S1 normal heart sound present and S2 normal heart sound present GI: Distended, tender, incision site looks good, no guarding, no hepatosplenomegaly : bladder normal to inspection, bladder normal to palpation, no renal angle tenderness Skin: no rashes or lesions noted and elasticity normal Neuro: oriented to person, oriented to place, oriented to time and moves all extremities Objective Data Labs 11/18/24 04:25 11/18/24 04:25 Labs: Laboratory Results - last 24 hr 11/17/24 11/17/24 11/18/24 21:49 22:04 00:28 WBC 14.6 H RBC 5.54 Hgb 17.2 Hct 49.1 MCV 88.6 MCH 31.0 MCHC 35.0 RDW 13.2 Plt Count 269 MPV 9.1 L Immature Gran % (Auto) 0.2 Neut % (Auto) 92.1 H Lymph % (Auto) 4.2 L [place] % (Auto) 3.3 Eos % (Auto) 0.0 Baso % (Auto) 0.2 Lymph # (Auto) 0.6 L [place] # (Auto) 0.5 Eos # (Auto) 0.0 Baso # (Auto) 0.0 Abs Immat Gran (auto) 0.03 Absolute Neuts (auto) 13.5 H Absolute Nucleated RBC 0.000 Nucleated RBC % (auto) 0.0 Neutrophils % (Manual) Band Neutrophils % Lymphocytes % (Manual) Monocytes % (Manual) Abs Neuts (Manual) Lymphocytes # (Manual) Monocytes # (Manual) Platelet Estimate Plt Morphology Comment RBC Morphology VBG pH VBG pCO2 VBG pO2 VBG HCO3 VBG O2 Saturation VBG Base Excess Sodium 135 Potassium 4.7 Chloride 106 Carbon Dioxide 20 L Anion Gap 14 BUN 19 H Creatinine 0.81 Estim Creat Clear Calc 101.6 Estimated GFR > 60 Random Glucose 149 H Lactic Acid 2.2 H* Lactic Acid F/U @ 2Hr 1.4 Calcium 8.3 L D Phosphorus 3.9 Magnesium 1.8 Total Bilirubin 0.9 AST 14 ALT < 6 Alkaline Phosphatase 58 Total Protein 5.5 L Albumin 2.8 L Urine Color Dark Yellow Urine Appearance Clear Urine pH 6.0 Ur Specific [place] >= 1.030 H Urine Protein 100 (2+) H Urine Glucose (UA) Negative Urine Ketones Negative Urine Blood Large (3+) H Urine Nitrite Negative Ur Leukocyte Esterase Negative Urine RBC >20 H Urine WBC 0-5 Ur Squamous Epith Cells 3-5 Urine Bacteria None Seen Hyaline Casts 3-5 Granular Casts Present Nasal Screen MRSA (PCR) POSITIVE A Nasal S. aureus Screen POSITIVE A Nasal MRSA/S.aureus Interp SEE NOTE Urine Opiates Screen Not Detected Ur Buprenorphine Scrn Not Detected Ur Oxycodone Screen Not Detected Urine Methadone Screen Not Detected Urine Fentanyl Screen POSITIVE H Ur Barbiturates Screen Not Detected Ur Phencyclidine Scrn Not Detected Ur Amphetamines Screen Not Detected U Benzodiazepines Scrn Not Detected Urine Cocaine Screen Not Detected U Marijuana (THC) Screen POSITIVE H 11/18/24 11/18/24 04:25 04:37 WBC 15.0 H RBC 4.46 L Hgb 13.8 L Hct 39.4 L MCV 88.3 MCH 30.9 MCHC 35.0 RDW 13.4 Plt Count 246 MPV 9.6 Immature Gran % (Auto) Cancelled Neut % (Auto) Cancelled Lymph % (Auto) Cancelled [place] % (Auto) Cancelled Eos % (Auto) Cancelled Baso % (Auto) Cancelled Lymph # (Auto) Cancelled [place] # (Auto) Cancelled Eos # (Auto) Cancelled Baso # (Auto) Cancelled Abs Immat Gran (auto) Cancelled Absolute Neuts (auto) Cancelled Absolute Nucleated RBC 0.000 Nucleated RBC % (auto) 0.0 Neutrophils % (Manual) 72 Band Neutrophils % 14 H Lymphocytes % (Manual) 11 L Monocytes % (Manual) 3 Abs Neuts (Manual) 12.9 H Lymphocytes # (Manual) 1.7 Monocytes # (Manual) 0.5 Platelet Estimate NORMAL Plt Morphology Comment NORMAL RBC Morphology NORMAL VBG pH 7.48 H VBG pCO2 29 VBG pO2 100 VBG HCO3 22 VBG O2 Saturation 99.0 VBG Base Excess -0.2 Sodium 137 Potassium 4.8 Chloride 109 H Carbon Dioxide 19 L Anion Gap 14 BUN 17 H Creatinine 0.84 Estim Creat Clear Calc 89.6 Estimated GFR > 60 Random Glucose 128 H Lactic Acid Lactic Acid F/U @ 2Hr Calcium 8.0 L Phosphorus 2.7 Magnesium 1.9 Total Bilirubin 1.0 AST 21 ALT < 6 Alkaline Phosphatase 39 Total Protein 5.5 L Albumin 3.0 L Urine Color Urine Appearance Urine pH Ur Specific [place] Urine Protein Urine Glucose (UA) Urine Ketones Urine Blood Urine Nitrite Ur Leukocyte Esterase Urine RBC Urine WBC Ur Squamous Epith Cells Urine Bacteria Hyaline Casts Granular Casts Nasal Screen MRSA (PCR) Nasal S. aureus Screen Nasal MRSA/S.aureus Interp Urine Opiates Screen Ur Buprenorphine Scrn Ur Oxycodone Screen Urine Methadone Screen Urine Fentanyl Screen Ur Barbiturates Screen Ur Phencyclidine Scrn Ur Amphetamines Screen U Benzodiazepines Scrn Urine Cocaine Screen U Marijuana (THC) Screen Microbiology Microbiology Results: Microbiology 11/17/24 15:28 Blood - Venous Blood Culture - Preliminary Prelim: GNR Gram Stain only 11/17/24 19:00 Abdomen - Abdominal Gram Stain - Final 11/17/24 19:00 Abdomen - Abdominal Routine Culture - Preliminary Culture in progress. 11/17/24 19:00 Abdomen - Abdominal Anaerobic Culture - Preliminary Culture in progress. 11/17/24 15:07 Blood - Venous Blood Culture - Preliminary Prelim: GNR Gram Stain only Progress Note: A&P Assessment and plan (1) Perforation bowel: Status: Acute (2) Perforation of sigmoid colon due to diverticulitis: Status: Acute (3) Status post exploratory laparotomy: Status: Acute (4) Elevated WBC count: Status: Acute (5) Sepsis: Status: Acute Plan Perforated viscus: Patient had perforated sigmoid colon possibly secondary to diverticulum, taken to emergent ex lap with end ileostomy on 11/17/2024. Postop course stable, no issues. Incision site looks clean and healthy, covered with simple dressing Blood cultures positive for Gram-negative rods, patient is on Zosyn we will continue with that. His also ordered on fluconazole due to perforated viscus and significant peritonitis Dilaudid for pain Dyspnea: Extubated this afternoon, tolerating liberation from ventilator very well. He is alert and oriented We will do incentive spirometry as tolerated Hypocalcemia: We will replace as per protocol Leukocytosis: WBC count up to 15,000 secondary to peritonitis Anemia: Secondary to major surgery and significant volume repletion. We will transfuse if hemoglobin drops below 7 Prophylaxis: SCD, pantoprazole Quality Stroke Does the patient have a stroke diagnosis?: No VTE Prior VTE?: No VTE Risk Level:: Surgical - low VTE Device Contraindication: N/A - Device Ordered VTE Drug Contraindication: Treatment Not Indicated
[2024-11-18] MEDS: Fluconazole in NaCl,Iso-Osm 200 MG/100 ML PIGGYBACK 100 MG IV (22:06)
[2024-11-19] VITALS (24 sets, daily range): BP systolic 114–167; BP diastolic 48–93; PULSE 60–110; RESP 13–28; TEMP 36.6–37.7; O2SAT 91–98; BMI 26.6
[2024-11-19] MEDS: HYDROmorphone HCl 0.5 MG/0.5 ML SYRINGE IVPUSH ×9 (00:04→22:24)
[2024-11-19] MEDS: 0.9 % Sodium Chloride Flush 3 ML SYRINGE IVFLUSH ×4 (00:19→19:52)
[2024-11-19] MEDS: Lactated Ringers 1,000 ML 100 ML IVCONT ×3 (02:18→22:23)
[2024-11-19] MEDS: Piperacillin Sodium/Tazobactam 3.375 GM in 0.9 % Sodium Chloride 50 ML IV ×4 (04:20→23:39)
[2024-11-19 04:29] LABS: VBG Base Excess 1.9 mmol/L; VBG HCO3 26 mmol/L (22-26); VBG pCO2 39 mmHg; VBG pH 7.42 (7.32-7.43); VBG pO2 44 mmHg
[2024-11-19 04:36] LABS: Venous Blood Gas Refer to POC result
[2024-11-19 04:59] LABS: Basophils Percent Auto 0.3 % (0-2); Eosinophils Percent Auto 0.3 % (0-4); Hematocrit 35.4 % (42.0-52.0); Hemoglobin 11.9 g/dl (14.0-18.0); Imm Gran Abs Auto 0.03 X10*3/uL (0.00-0.03); Imm Gran Pct Auto 0.3 % (0.0-0.4); Lymphocytes Absolute Auto 0.8 X10*3/uL (1.2-4.9); Lymphocytes Percent Auto 8.5 % (20-40); Mean Corpuscular HGB Conc 33.6 g/dl (31.0-36.0); Mean Corpuscular Hemoglobin 30.5 pg (27.0-33.0); Mean Corpuscular Volume 90.8 fL (80.0-98.0); Mean Platelet Volume 10.1 fL (9.4-12.4); Monocytes Absolute Auto 0.6 X10*3/uL (0.1-1.2); Monocytes Percent Auto 6.6 % (2-11); PLT CLUMP 1; Red Cell Distribution Width 13.8 % (11.0-16.0); SCAN SMEAR FLAG 1
[2024-11-19 05:00] LABS: MANUAL DIFF FLAG NO; White Blood Count 9.5 X10*3/uL (4.8-10.8)
[2024-11-19 05:04] LABS: Alanine Aminotransferase 8 U/L (0-40); Albumin Level 3.7 g/dL (3.5-5.0); Alkaline Phosphatase 41 U/L (39-117); Anion Gap 16 (12-20); Aspartate Amino Transferase 24 U/L (5-37); Blood Urea Nitrogen 14 mg/dL (9-16); Calcium 8.8 mg/dL (8.4-10.2); Carbon Dioxide 20 mmol/L (22-29); Chloride 108 mmol/L (96-108); Estimated Glomerular Filt Rate > 60; Glucose Random 99 mg/dL (60-115); Magnesium 2.3 mg/dL (1.6-2.6); Phosphorus 1.8 mg/dL (2.7-4.5); Potassium 4.2 mmol/L (3.3-5.1); Sodium 140 mmol/L (135-145)
[2024-11-19 05:39] LABS: Platelet Count 209 X10*3/uL (160-400)
[2024-11-19] MEDS: Pantoprazole Sodium 40 MG/10 ML VIAL IVPUSH (06:13)
--- NOTE | 2024-11-19 06:35 | PC.NURSE ---
Pt alert and oriented, on 15L NC maintaining spO2 >90%. Pt complains of intermittent shooting pain to abdomen, medicated with prn dilaudid - see emar. Pt provided with an incentive spirometer, educated on hourly use - good technique and effort. Midline dsg c/d/i, colostomy with large amount of brown mushy stool, emptied x1. Pt passed bedside swallow, per PA ok to have sips of water and ice chips. Hygiene offered - pt refused. Safety measures in place - plan of care ongoing.?
--- NOTE | 2024-11-19 10:31 | MHC.CLN ---
F/U PATIENT EXTUBATED 11/18. ACCEPTING WATER. FOLLOW FOR DIET ADVANCEMENT.
--- NOTE | 2024-11-19 11:08 | MHC.CM.PN ---
PT REPORTS HE LIVES WITH, AND CARES FOR, HIS 85 YR OLD MOTHER HE IS INDEPENDENT WITH CARE, HAS NO SERVICES AND NO DME PT REFUSES TO COMPLETE A HCP AT THIS TIME HE HAS NO PCP AND NO INSURANCE HE IS AWARE A REFERRAL WILL BE MADE TO [facility] [place] [facility] DCP: HOME VIA PRIVATE TRANSPORT
--- NOTE | 2024-11-19 12:04 | P.PNCC_ITS ---
Subjective Subjective Date of Service: 11/19/24 Critical Care Time (minutes): 35 Comment: Extubated yesterday, tolerating liberation from ventilator very well He is hemodynamically stable, his pain and other symptoms are well controlled. Physical Exam 2 Vital Signs: Vital Signs: Last Vital Signs Temp 98.0 F 11/19/24 08:00 Pulse 94 11/19/24 11:00 Resp 28 H 11/19/24 11:00 BP 145/87 H 11/19/24 11:00 Pulse Ox 95 11/19/24 11:00 O2 Del Method Nasal Cannula 11/19/24 11:00 O2 Flow Rate 10 11/19/24 11:00 FiO2 25 11/18/24 16:00 Oxygen Flow Rate 7 11/18/24 17:30 BMI result Body Mass Index 26.6 General: Not in any acute distress, resting comfortably in the bed Nutritional Appearance: well nourished and overweight Eyes: appearance normal, both eyes and all related structures; Alignment and Position: alignment normal and position normal Neck: No lymphadenopathy, no thyromegaly Resp: bilateral air entry equal, occasional added sounds present Cardio: Regular rate, regular rhythm; Heart sounds: S1 normal heart sound present and S2 normal heart sound present GI: soft, nontender, no guarding, no hepatosplenomegaly : bladder normal to inspection, bladder normal to palpation, no renal angle tenderness Skin: no rashes or lesions noted and elasticity normal Neuro: oriented to person, oriented to place, oriented to time and moves all extremities Objective Data Labs 11/19/24 04:18 11/19/24 04:18 Labs: Laboratory Results - last 24 hr 11/19/24 11/19/24 04:18 04:25 WBC 9.5 RBC 3.90 L Hgb 11.9 L Hct 35.4 L MCV 90.8 MCH 30.5 MCHC 33.6 RDW 13.8 Plt Count 209 MPV 10.1 Immature Gran % (Auto) 0.3 Neut % (Auto) 84.0 H Lymph % (Auto) 8.5 L [place] % (Auto) 6.6 Eos % (Auto) 0.3 Baso % (Auto) 0.3 Lymph # (Auto) 0.8 L [place] # (Auto) 0.6 Eos # (Auto) 0.0 Baso # (Auto) 0.0 Abs Immat Gran (auto) 0.03 Absolute Neuts (auto) 8.0 Absolute Nucleated RBC 0.000 Nucleated RBC % (auto) 0.0 VBG pH 7.42 VBG pCO2 39 VBG pO2 44 VBG HCO3 26 VBG O2 Saturation 72.0 VBG Base Excess 1.9 Sodium 140 Potassium 4.2 Chloride 108 Carbon Dioxide 20 L Anion Gap 16 BUN 14 Creatinine 0.66 Estim Creat Clear Calc 114.0 Estimated GFR > 60 Random Glucose 99 Calcium 8.8 D Phosphorus 1.8 L Magnesium 2.3 Total Bilirubin 1.0 AST 24 ALT 8 Alkaline Phosphatase 41 Total Protein 6.0 L Albumin 3.7 Microbiology Microbiology Results: Microbiology 11/17/24 15:07 Blood - Venous Blood Culture - Preliminary Prelim: GNR Gram Stain only 11/17/24 15:28 Blood - Venous Blood Culture - Preliminary Prelim: GNR Gram Stain only 11/17/24 19:00 Abdomen - Abdominal Gram Stain - Final 11/17/24 19:00 Abdomen - Abdominal Routine Culture - Preliminary Gram negative karissa 11/17/24 19:00 Abdomen - Abdominal Anaerobic Culture - Preliminary Culture in progress. Progress Note: A&P Assessment and plan (1) Perforation bowel: Status: Acute (2) Perforation of sigmoid colon due to diverticulitis: Status: Acute (3) Status post exploratory laparotomy: Status: Acute (4) Elevated WBC count: Status: Acute Plan Perforated viscus: Patient had perforated sigmoid colon possibly secondary to diverticulum, taken to emergent ex lap with end ileostomy on 11/17/2024. Postop course stable, no issues. Incision site looks clean and healthy, covered with simple dressing Blood cultures positive for Gram-negative rods, patient is on Zosyn we will continue with that. His also on fluconazole due to perforated viscus and significant peritonitis As needed Dilaudid for pain Dyspnea: Extubated yesterday, tolerating liberation from ventilator very well. He is alert and oriented We will do incentive spirometry as tolerated Hypophophatemia: Secondary to poor nutrition currently We will replace as per protocol Anemia: Secondary to major surgery and significant volume repletion. We will transfuse if hemoglobin drops below 7 Prophylaxis: SCD, pantoprazole Quality Stroke Does the patient have a stroke diagnosis?: No VTE Prior VTE?: No VTE Risk Level:: Surgical - low VTE Device Contraindication: N/A - Device Ordered VTE Drug Contraindication: Treatment Not Indicated
--- NOTE | 2024-11-19 13:29 | PM.EVENT ---
Event Note Date of Service: 11/19/24 Event Note: 58 year old man admitted with abd pain for 3 days and found to have free intraperitoneal gas consistent with perforation. Patient was taken to OR for exp lap, sigmoid resection and take down of spenic flexure and colostomy and hartmanns pouch. Found to have peritonitis from profound fecal contamination so admitted to ICU due to high risk for decompensation. extubated 11/18/24 Perforated sigmoid diverticulitis s/p exp lab with colostomy 11/17/24 zosyn and Fluconazole pain management as needed GNR bacteremia continue Zosyn follow final cx Hypophos replete Anemia acute blood loss from surgery monitor HH tx if hem <7 Hypoxia oxygen to keep sats >90 get CXR and BNP DVT prophylaxis with SCD boots Full code Time Spent With Patient Time: Total time managing care of this patient today ____ minutes.
--- NOTE | 2024-11-19 13:48 | P.PNGS_ITS ---
Subjective Subjective Date of Service: 11/19/24 Interval history: Patient was self-extubated. Dental trauma. Otherwise patient is alert , conversant , doing well. Vital signs stable. Physical Exam 2 Vital Signs: Vital Signs: Last Vital Signs Temp 98.5 F 11/19/24 12:00 Pulse 96 11/19/24 13:00 Resp 21 H 11/19/24 13:00 BP 144/93 H 11/19/24 13:00 Pulse Ox 95 11/19/24 13:00 O2 Del Method Nasal Cannula 11/19/24 13:00 O2 Flow Rate 10 11/19/24 13:00 FiO2 25 11/18/24 16:00 Oxygen Flow Rate 7 11/18/24 17:30 BMI result Body Mass Index 26.6 GI: Other: Abdomen is incision clean dry and intact. Skin ulices removed the dressing applied. Ostomy putting out copious amount of stool Objective Data Active Medications Acetaminophen (Acetaminophen 325 Mg Tablet) 650 mg PO Q6H PRN PRN Reason: Pain, Mild 1-3,fever,headache Albuterol/Ipratropium (Albuterol/Iprat 2.5/0.5mg 3 Ml Ampul.Neb) 3 ml INHALE RQ4H WHILE AWAKE [facility] Hydromorphone HCl (Hydromorphone Hcl 0.5 Mg/0.5 Ml Syringe) 0.5 mg IVPUSH Q2H PRN; Protocol PRN Reason: Pain, Moderate(Pain Scale 4-6) Last Admin: 11/19/24 11:21 Dose: 0.5 mg Documented By: DARLINE Lactated Ringer's (Lr) 1,000 mls @ 100 mls/hr IVCONT .Q10H [facility] Last Admin: 11/19/24 12:30 Dose: 100 mls/hr Documented By: DARLINE Piperacillin Sod/Tazobactam (Sod 3.375 gm/ Sodium Chloride) 50 mls @ 100 mls/hr IV Q6H [facility] Last Infusion: 11/19/24 11:55 Dose: Infused Documented By: DARLINE Fluconazole (Diflucan) 200 mg in 100 mls @ 100 mls/hr IV Q24H [facility] Last Infusion: 11/18/24 23:23 Dose: Infused Documented By: CIARA Naloxone HCl (Naloxone Hcl 0.4 Mg/Ml Vial) 0.04 mg IVPUSH Q5M PRN PRN Reason: Excessive sedation or RR < 8 Naloxone HCl (Naloxone Hcl 0.4 Mg/Ml Vial) 0.2 mg IVPUSH Q2M PRN PRN Reason: Excessive sedation or RR < 8 Ondansetron HCl (Ondansetron Hcl 4 Mg/2 Ml Vial) 4 mg IVPUSH Q4H PRN PRN Reason: Nausea and Vomiting Pantoprazole Sodium (Pantoprazole Sodium 40 Mg/10 Ml Vial) 40 mg IVPUSH DAILY@0630 [facility] Last Admin: 11/19/24 06:13 Dose: 40 mg Documented By: CIARA Sodium Chloride (0.9 % Sodium Chloride Flush 3 Ml Syringe) 3 ml IVFLUSH QSHIFT [facility] Last Admin: 11/19/24 07:48 Dose: 3 ml Documented By: DARLINE Labs 11/19/24 04:18 11/19/24 04:18 Labs: Laboratory Results - last 24 hr 11/19/24 11/19/24 04:18 04:25 MCV 90.8 MCH 30.5 MCHC 33.6 RDW 13.8 Plt Count 209 MPV 10.1 Immature Gran % (Auto) 0.3 Neut % (Auto) 84.0 H Lymph % (Auto) 8.5 L Garza % (Auto) 6.6 Eos % (Auto) 0.3 Baso % (Auto) 0.3 Lymph # (Auto) 0.8 L Garza # (Auto) 0.6 Eos # (Auto) 0.0 Baso # (Auto) 0.0 Abs Immat Gran (auto) 0.03 Absolute Neuts (auto) 8.0 Absolute Nucleated RBC 0.000 Nucleated RBC % (auto) 0.0 VBG pH 7.42 VBG pCO2 39 VBG pO2 44 VBG HCO3 26 VBG O2 Saturation 72.0 VBG Base Excess 1.9 Anion Gap 16 Estim Creat Clear Calc 114.0 Estimated GFR > 60 Random Glucose 99 Calcium 8.8 D Phosphorus 1.8 L Magnesium 2.3 Total Bilirubin 1.0 AST 24 ALT 8 Alkaline Phosphatase 41 Total Protein 6.0 L Albumin 3.7 Microbiology Microbiology Results: Microbiology 11/17/24 15:07 Blood Culture - Preliminary Blood - Venous Prelim: GNR Gram Stain only 11/17/24 15:28 Blood Culture - Preliminary Blood - Venous Prelim: GNR Gram Stain only 11/17/24 19:00 Gram Stain - Final Abdomen - Abdominal Routine Culture - Preliminary Gram negative karissa Anaerobic Culture - Preliminary Culture in progress. Procedures Date of Service Date of Service: 11/19/24 Progress Note: A&P Assessment and plan (1) Perforation of sigmoid colon due to diverticulitis: Status: Acute Plan Tentative plan is for patient to be transferred to the floor. Encourage incentive spirometry, out of bed, continue IV antibiotics, p.o. liquids as tolerated Time Spent With Patient Time: Total time managing care of this patient today ____ minutes. Quality Stroke Does the patient have a stroke diagnosis?: No VTE Prior VTE?: No VTE Risk Level:: Surgical - low VTE Device Contraindication: N/A - Device Ordered VTE Drug Contraindication: Treatment Not Indicated
[2024-11-19 14:59] LABS: B Type Natriuretic Peptide 180 pg/mL (<100)
[2024-11-19] MEDS: Albuterol/Iprat 2.5/0.5MG 3 ML AMPUL.NEB INHALE ×2 (15:07→19:49)
[2024-11-19] MEDS: ondansetron HCL 4 MG/2 ML VIAL IVPUSH ×2 (17:16→21:29)
--- NOTE | 2024-11-19 17:54 | PC.NURSE ---
Assumed care at 0700- pt. A&Ox4, c/o abd pain- PRN dilaudid administered per DEC. pt. remains SR on tele, HR 80s-100s with PACs, SBPs 120s-140s with MAPs >65. O2 titrated per VS flowsheet, pt. using Incentive spirometer. Pt with expiratory wheeze, notified- scheduled nebs ordered. Pt. tolerating ice chips and small sips of water- intermittent nausea, PRN zofran administered per DEC. Ostomy emptied x2 for moderate amount dark brown mushy stool. Aguirre removed at approx 1400, [place] cath applied and patient spontaneously voided x1. Dr. Rico at bedside, surgical dressing removed and absorbent packing removed from surgical incision by . Surgical site with small-mod amt serosanguineous drainage- redressed with ABD pad and paper tape. Transfer to ordered by traffic control operator- report given to Guillermo RAYMUNDO, pt. transported to at approx 1730.
[2024-11-19] MEDS: Fluconazole in NaCl,Iso-Osm 200 MG/100 ML PIGGYBACK 100 MG IV (22:23)
[2024-11-20] VITALS (12 sets, daily range): BP systolic 148–162; BP diastolic 81–94; PULSE 74–101; RESP 16–19; TEMP 36.2–37.1; O2SAT 90–93
[2024-11-20] MEDS: HYDROmorphone HCl 0.5 MG/0.5 ML SYRINGE IVPUSH ×9 (00:58→22:26)
[2024-11-20] MEDS: ondansetron HCL 4 MG/2 ML VIAL IVPUSH ×4 (01:02→19:40)
[2024-11-20] MEDS: Piperacillin Sodium/Tazobactam 3.375 GM in 0.9 % Sodium Chloride 50 ML IV ×4 (05:11→22:17)
[2024-11-20] MEDS: Pantoprazole Sodium 40 MG/10 ML VIAL IVPUSH (05:18)
[2024-11-20] MEDS: Albuterol/Iprat 2.5/0.5MG 3 ML AMPUL.NEB INHALE ×2 (08:03→12:04)
[2024-11-20] MEDS: 0.9 % Sodium Chloride Flush 3 ML SYRINGE IVFLUSH ×3 (08:54→23:55)
--- NOTE | 2024-11-20 08:57 | HO.PM.IMPN ---
Subjective Subjective Date of Service: 11/20/24 Physical Exam Vital Signs: Vital Signs: Last Vital Signs Temp 98.2 F 11/20/24 07:15 Pulse 101 H 11/20/24 08:05 Resp 18 11/20/24 08:46 BP 148/87 H 11/20/24 07:15 Pulse Ox 92 11/20/24 07:15 O2 Del Method Nasal Cannula 11/20/24 07:15 O2 Flow Rate 4 11/20/24 07:15 FiO2 25 11/18/24 16:00 Oxygen Flow Rate 3 11/19/24 16:26 BMI result Body Mass Index 26.6 Objective Data Active Medications Acetaminophen (Acetaminophen 325 Mg Tablet) 650 mg PO Q6H PRN PRN Reason: Pain, Mild 1-3,fever,headache Albuterol/Ipratropium (Albuterol/Iprat 2.5/0.5mg 3 Ml Ampul.Neb) 3 ml INHALE RQ4H WHILE AWAKE [facility] Last Admin: 11/20/24 08:03 Dose: 3 ml Documented By: CHANTAL Hydromorphone HCl (Hydromorphone Hcl 0.5 Mg/0.5 Ml Syringe) 0.5 mg IVPUSH Q2H PRN; Protocol PRN Reason: Pain, Moderate(Pain Scale 4-6) Last Admin: 11/20/24 08:46 Dose: 0.5 mg Documented By: VITALY Lactated Ringer's (Lr) 1,000 mls @ 100 mls/hr IVCONT .Q10H [facility] Last Admin: 11/19/24 22:23 Dose: 100 mls/hr Documented By: KATTY Piperacillin Sod/Tazobactam (Sod 3.375 gm/ Sodium Chloride) 50 mls @ 100 mls/hr IV Q6H [facility] Last Infusion: 11/20/24 05:45 Dose: Infused Documented By: KATTY Fluconazole (Diflucan) 200 mg in 100 mls @ 100 mls/hr IV Q24H [facility] Last Infusion: 11/19/24 23:41 Dose: Infused Documented By: KATTY Naloxone HCl (Naloxone Hcl 0.4 Mg/Ml Vial) 0.04 mg IVPUSH Q5M PRN PRN Reason: Excessive sedation or RR < 8 Naloxone HCl (Naloxone Hcl 0.4 Mg/Ml Vial) 0.2 mg IVPUSH Q2M PRN PRN Reason: Excessive sedation or RR < 8 Ondansetron HCl (Ondansetron Hcl 4 Mg/2 Ml Vial) 4 mg IVPUSH Q4H PRN PRN Reason: Nausea and Vomiting Last Admin: 11/20/24 08:48 Dose: 4 mg Documented By: VITALY Pantoprazole Sodium (Pantoprazole Sodium 40 Mg/10 Ml Vial) 40 mg IVPUSH DAILY@0630 [facility] Last Admin: 11/20/24 05:18 Dose: 40 mg Documented By: KATTY Sodium Chloride (0.9 % Sodium Chloride Flush 3 Ml Syringe) 3 ml IVFLUSH QSHIFT [facility] Last Admin: 11/20/24 08:54 Dose: 3 ml Documented By: VITALY Labs 11/19/24 04:18 11/19/24 04:18 Labs: Laboratory Results - last 24 hr 11/19/24 04:18 B-Natriuretic Peptide 180 H Microbiology Microbiology Results: Microbiology 11/17/24 15:28 Blood Culture - Preliminary Blood - Venous Prelim: GNR Gram Stain only 11/17/24 15:07 Blood Culture - Preliminary Blood - Venous Prelim: GNR Gram Stain only 11/17/24 19:00 Gram Stain - Final Abdomen - Abdominal Routine Culture - Final Escherichia coli Anaerobic Culture - Preliminary Culture in progress. Assessment and Plan (1) Perforation bowel: Status: Acute Plan 58 year old man admitted with abd pain for 3 days and found to have free intraperitoneal gas consistent with perforation. Patient was taken to OR for exp lap, sigmoid resection and take down of spenic flexure and colostomy and hartmanns pouch. Found to have peritonitis from profound fecal contamination so admitted to ICU due to high risk for decompensation. extubated 11/18/24 Perforated sigmoid diverticulitis s/p exp lab with colostomy 11/17/24 zosyn and Fluconazole pain management as needed GNR bacteremia wound cx ecoli positive continue Zosyn follow final blood cx Hypophos replete Anemia acute blood loss from surgery monitor HH tx if hem <7 Hypoxia oxygen to keep sats >90 get CXR with atelectasis IS DVT prophylaxis with SCD boots Full code Quality Stroke Does the patient have a stroke diagnosis?: No VTE Prior VTE?: No VTE Risk Level:: Surgical - low VTE Device Contraindication: N/A - Device Ordered VTE Drug Contraindication: Treatment Not Indicated
--- NOTE | 2024-11-20 10:08 | P.PNGS_ITS ---
Subjective Subjective Date of Service: 11/20/24 Interval history: States he feels okay today Does complain of pain on incision Stoma with good output Physical Exam 2 Vital Signs: Vital Signs: Last Vital Signs Temp 98.2 F 11/20/24 07:15 Pulse 101 H 11/20/24 08:05 Resp 18 11/20/24 08:46 BP 148/87 H 11/20/24 07:15 Pulse Ox 92 11/20/24 07:15 O2 Del Method Nasal Cannula 11/20/24 07:15 O2 Flow Rate 4 11/20/24 07:15 FiO2 25 11/18/24 16:00 Oxygen Flow Rate 3 11/19/24 16:26 BMI result Body Mass Index 26.6 Const: Other: Very anxious General: no acute distress Resp: Effort & Inspection: normal respiratory effort Cardio: Rate: regular rate GI: Other: Incision clean, stoma functioning well with good output Palpation (GI): Soft to palpation Objective Data Active Medications Acetaminophen (Acetaminophen 325 Mg Tablet) 650 mg PO Q6H PRN PRN Reason: Pain, Mild 1-3,fever,headache Albuterol/Ipratropium (Albuterol/Iprat 2.5/0.5mg 3 Ml Ampul.Neb) 3 ml INHALE RQ4H WHILE AWAKE [facility] Last Admin: 11/20/24 08:03 Dose: 3 ml Documented By: CHANTAL Hydromorphone HCl (Hydromorphone Hcl 0.5 Mg/0.5 Ml Syringe) 0.5 mg IVPUSH Q2H PRN; Protocol PRN Reason: Pain, Moderate(Pain Scale 4-6) Last Admin: 11/20/24 08:46 Dose: 0.5 mg Documented By: VITALY Lactated Ringer's (Lr) 1,000 mls @ 100 mls/hr IVCONT .Q10H [facility] Last Admin: 11/19/24 22:23 Dose: 100 mls/hr Documented By: KATTY Piperacillin Sod/Tazobactam (Sod 3.375 gm/ Sodium Chloride) 50 mls @ 100 mls/hr IV Q6H [facility] Last Infusion: 11/20/24 05:45 Dose: Infused Documented By: KATTY Fluconazole (Diflucan) 200 mg in 100 mls @ 100 mls/hr IV Q24H [facility] Last Infusion: 11/19/24 23:41 Dose: Infused Documented By: KATTY Naloxone HCl (Naloxone Hcl 0.4 Mg/Ml Vial) 0.04 mg IVPUSH Q5M PRN PRN Reason: Excessive sedation or RR < 8 Naloxone HCl (Naloxone Hcl 0.4 Mg/Ml Vial) 0.2 mg IVPUSH Q2M PRN PRN Reason: Excessive sedation or RR < 8 Ondansetron HCl (Ondansetron Hcl 4 Mg/2 Ml Vial) 4 mg IVPUSH Q4H PRN PRN Reason: Nausea and Vomiting Last Admin: 11/20/24 08:48 Dose: 4 mg Documented By: VITALY Pantoprazole Sodium (Pantoprazole Sodium 40 Mg/10 Ml Vial) 40 mg IVPUSH DAILY@0630 [facility] Last Admin: 11/20/24 05:18 Dose: 40 mg Documented By: KATTY Sodium Chloride (0.9 % Sodium Chloride Flush 3 Ml Syringe) 3 ml IVFLUSH QSHIFT [facility] Last Admin: 11/20/24 08:54 Dose: 3 ml Documented By: VITALY Labs 11/19/24 04:18 11/19/24 04:18 Labs: Laboratory Results - last 24 hr 11/19/24 04:18 B-Natriuretic Peptide 180 H Microbiology Microbiology Results: Microbiology 11/17/24 15:28 Blood Culture - Preliminary Blood - Venous Prelim: GNR Gram Stain only 11/17/24 15:07 Blood Culture - Preliminary Blood - Venous Prelim: GNR Gram Stain only 11/17/24 19:00 Gram Stain - Final Abdomen - Abdominal Routine Culture - Final Escherichia coli Anaerobic Culture - Preliminary Culture in progress. Procedures Date of Service Date of Service: 11/20/24 Progress Note: A&P Assessment and plan (1) Perforation of sigmoid colon due to diverticulitis: Status: Acute Assessment and Plan: Status post Tori's procedure Looks well Very anxious He does not want his diet advanced despite stoma having output Says he is not ready to get out of bed Incentive spirometry Pain management Stoma care I changed his dressings Time Spent With Patient Time: Total time managing care of this patient today ____ minutes. Quality Stroke Does the patient have a stroke diagnosis?: No VTE Prior VTE?: No VTE Risk Level:: Surgical - low VTE Device Contraindication: N/A - Device Ordered VTE Drug Contraindication: Treatment Not Indicated
[2024-11-20] MEDS: Lactated Ringers 1,000 ML 100 ML IVCONT ×2 (10:45→22:16)
[2024-11-20] MEDS: Fluconazole in NaCl,Iso-Osm 200 MG/100 ML PIGGYBACK 100 MG IV (22:16)
[2024-11-21] VITALS (11 sets, daily range): BP systolic 125–171; BP diastolic 82–96; PULSE 75–112; RESP 15–19; TEMP 36.1–37.1; O2SAT 89–94
[2024-11-21] MEDS: HYDROmorphone HCl 0.5 MG/0.5 ML SYRINGE IVPUSH ×8 (01:14→23:41)
[2024-11-21] MEDS: ondansetron HCL 4 MG/2 ML VIAL IVPUSH (01:15)
[2024-11-21] MEDS: Piperacillin Sodium/Tazobactam 3.375 GM in 0.9 % Sodium Chloride 50 ML IV ×4 (04:37→21:41)
[2024-11-21] MEDS: Pantoprazole Sodium 40 MG/10 ML VIAL IVPUSH (06:16)
[2024-11-21] MEDS: Albuterol/Iprat 2.5/0.5MG 3 ML AMPUL.NEB INHALE ×3 (09:15→20:27)
[2024-11-21] MEDS: 0.9 % Sodium Chloride Flush 3 ML SYRINGE IVFLUSH ×2 (09:16→14:36)
--- NOTE | 2024-11-21 09:18 | HO.PM.IMPN ---
Subjective Subjective Date of Service: 11/21/24 Review of Systems F/U consult visit complete, feels he is improving daily. Tolerating PO intake, which is minimal at baseline. States his pain and other symptoms are well controlled a this time. Constitutional Denies N/V, fever or chills Cardiovascular Denies pain, palpitations, diaphoresis Respiratory Denies pain, dyspnea, or wheezing Endorses non-productive cough intermittenly Gastrointestinal Denies N/V Endorses appetite ok Physical Exam Vital Signs: Vital Signs: Last Vital Signs Temp 97.5 F 11/21/24 08:00 Pulse 84 11/21/24 09:16 Resp 15 11/21/24 09:16 BP 154/94 H 11/21/24 08:00 Pulse Ox 90 L 11/21/24 08:00 O2 Del Method Room Air 11/21/24 08:00 O2 Flow Rate 2.0 11/21/24 08:00 FiO2 25 11/18/24 16:00 Oxygen Flow Rate 4 11/20/24 17:00 BMI result Body Mass Index 26.6 Const: General: cooperative, no acute distress, alert and awake Orientation/consciousness: patient oriented x3 Eyes: Pupils: Equal, round and reactive pupils present Resp: Effort & Inspection: normal respiratory effort and able to speak in complete sentences Auscultation: diminished lung sounds bilateral throughout Cardio: Jugular venous distension: no JVD Palpation: normal PMI Rate: regular rate Rhythm: regular rhythm Peripheral pulses: Peripheral pulses 2+ throughout GI: Inspection: Yes incision and Yes other (ostomy) Auscultation: normal bowel sounds Neuro: General: patient oriented x3 and CN's II-XI intact bilaterally Cranial nerves: Yes Equal, round and reactive pupils present and Yes Bilaterally intact EOM present Objective Data Active Medications Acetaminophen (Acetaminophen 325 Mg Tablet) 650 mg PO Q6H PRN PRN Reason: Pain, Mild 1-3,fever,headache Albuterol/Ipratropium (Albuterol/Iprat 2.5/0.5mg 3 Ml Ampul.Neb) 3 ml INHALE RQ4H WHILE AWAKE [facility] Last Admin: 11/21/24 09:15 Dose: 3 ml Documented By: CHANTAL Hydromorphone HCl (Hydromorphone Hcl 0.5 Mg/0.5 Ml Syringe) 0.5 mg IVPUSH Q2H PRN; Protocol PRN Reason: Pain, Moderate(Pain Scale 4-6) Last Admin: 11/21/24 07:23 Dose: 0.5 mg Documented By: KATTY Piperacillin Sod/Tazobactam (Sod 3.375 gm/ Sodium Chloride) 50 mls @ 100 mls/hr IV Q6H [facility] Last Infusion: 11/21/24 05:16 Dose: Infused Documented By: KATTY Fluconazole (Diflucan) 200 mg in 100 mls @ 100 mls/hr IV Q24H [facility] Last Infusion: 11/20/24 23:25 Dose: Infused Documented By: KATTY Naloxone HCl (Naloxone Hcl 0.4 Mg/Ml Vial) 0.04 mg IVPUSH Q5M PRN PRN Reason: Excessive sedation or RR < 8 Naloxone HCl (Naloxone Hcl 0.4 Mg/Ml Vial) 0.2 mg IVPUSH Q2M PRN PRN Reason: Excessive sedation or RR < 8 Ondansetron HCl (Ondansetron Hcl 4 Mg/2 Ml Vial) 4 mg IVPUSH Q4H PRN PRN Reason: Nausea and Vomiting Last Admin: 11/21/24 01:15 Dose: 4 mg Documented By: KATTY Oxycodone HCl (Oxycodone Hcl Immed Release 5 Mg Tablet) 5 mg PO Q4H PRN PRN Reason: Pain, Moderate(Pain Scale 4-6) Sodium Chloride (0.9 % Sodium Chloride Flush 3 Ml Syringe) [facility] Last Admin: 11/21/24 09:16 Dose: 3 ml Documented By: VIKIT Labs 11/19/24 04:18 11/19/24 04:18 Microbiology Microbiology Results: Microbiology 11/17/24 19:00 Gram Stain - Final Abdomen - Abdominal Routine Culture - Final Escherichia coli Anaerobic Culture - Preliminary Culture in progress. 11/17/24 15:28 Blood Culture - Final Blood - Venous Bacteroides thetaiotaomicron 11/17/24 15:07 Blood Culture - Final Blood - Venous Bacteroides thetaiotaomicron Assessment and Plan (1) Perforation bowel: Status: Acute Plan 58 year old man admitted with abd pain x 3 days and found to have free intraperitoneal gas consistent with perforation. Patient was taken to OR for exp lap, sigmoid resection and take down of spenic flexure and colostomy and hartmanns pouch. Found to have peritonitis from profound fecal contamination so admitted to ICU due to high risk for decompensation. extubated 11/18/24 Perforated sigmoid diverticulitis s/p exp lab with colostomy 11/17/24 zosyn and Fluconazole pain management as needed Bacteroides thetaiotaomicron bacteremia wound cx ecoli positive continue Zosyn Hypophos K phos Anemia acute blood loss from surgery monitor HH tx if hem <7 Hypoxia oxygen to keep sats >90 get CXR with atelectasis splinting to improve cough strength IS Medical consultation completed, will sign off. Please consult for any future needs. DVT prophylaxis with SCD boots Full code Quality Stroke Does the patient have a stroke diagnosis?: No VTE Prior VTE?: No VTE Risk Level:: Surgical - low VTE Device Contraindication: N/A - Device Ordered VTE Drug Contraindication: Treatment Not Indicated
--- NOTE | 2024-11-21 10:10 | PM.PNGS ---
Subjective Subjective Date of Service: 11/21/24 Interval history: Feels better this morning. Tolerating clear liquids without nausea or vomiting. Ostomy continues to function well. Has refused to get OOB until this morning and states he will ambulate today. Not using incentive. Does not want his [place] catheter removed, will think about it for later today. Physical Exam Vital Signs: Vital Signs: Last Vital Signs Temp 97.5 F 11/21/24 08:00 Pulse 84 11/21/24 09:16 Resp 15 11/21/24 09:16 BP 154/94 H 11/21/24 08:00 Pulse Ox 91 L 11/21/24 09:48 O2 Del Method Nasal Cannula 11/21/24 09:48 O2 Flow Rate 2 11/21/24 09:48 FiO2 25 11/18/24 16:00 Oxygen Flow Rate 4 11/20/24 17:00 BMI result Body Mass Index 26.6 Const: General: comfortable, no acute distress and alert Orientation/consciousness: patient oriented x3 Resp: Effort & Inspection: normal respiratory effort, not tachypneic, no tracheal deviation and no use of accessory muscles GI: Other: mildly distended incision clean, moderate tenderness surrounding ostomy with large amount of soft stool output Palpation (GI): Soft to palpation and no guarding Skin: General skin exam: no rashes or lesions noted Neuro: General: patient oriented x3 and moves all extremities Objective Data Active Medications Acetaminophen (Acetaminophen 325 Mg Tablet) 650 mg PO Q6H PRN PRN Reason: Pain, Mild 1-3,fever,headache Albuterol/Ipratropium (Albuterol/Iprat 2.5/0.5mg 3 Ml Ampul.Neb) 3 ml INHALE RQ4H WHILE AWAKE [facility] Last Admin: 11/21/24 09:15 Dose: 3 ml Documented By: CHANTAL Hydromorphone HCl (Hydromorphone Hcl 0.5 Mg/0.5 Ml Syringe) 0.5 mg IVPUSH Q2H PRN; Protocol PRN Reason: Pain, Moderate(Pain Scale 4-6) Last Admin: 11/21/24 07:23 Dose: 0.5 mg Documented By: KATTY Piperacillin Sod/Tazobactam (Sod 3.375 gm/ Sodium Chloride) 50 mls @ 100 mls/hr IV Q6H [facility] Last Admin: 11/21/24 09:18 Dose: 100 mls/hr Documented By: TARUN Fluconazole (Diflucan) 200 mg in 100 mls @ 100 mls/hr IV Q24H [facility] Last Infusion: 11/20/24 23:25 Dose: Infused Documented By: KATTY Naloxone HCl (Naloxone Hcl 0.4 Mg/Ml Vial) 0.04 mg IVPUSH Q5M PRN PRN Reason: Excessive sedation or RR < 8 Naloxone HCl (Naloxone Hcl 0.4 Mg/Ml Vial) 0.2 mg IVPUSH Q2M PRN PRN Reason: Excessive sedation or RR < 8 Ondansetron HCl (Ondansetron Hcl 4 Mg/2 Ml Vial) 4 mg IVPUSH Q4H PRN PRN Reason: Nausea and Vomiting Last Admin: 11/21/24 01:15 Dose: 4 mg Documented By: KATTY Oxycodone HCl (Oxycodone Hcl Immed Release 5 Mg Tablet) 5 mg PO Q4H PRN PRN Reason: Pain, Moderate(Pain Scale 4-6) Sodium Chloride (0.9 % Sodium Chloride Flush 3 Ml Syringe) 3 ml IVFLUSH QSHIFT [facility] Last Admin: 11/21/24 09:16 Dose: 3 ml Documented By: TARUN Labs 11/19/24 04:18 11/19/24 04:18 Microbiology Microbiology Results: Microbiology 11/17/24 19:00 Gram Stain - Final Abdomen - Abdominal Routine Culture - Final Escherichia coli Anaerobic Culture - Preliminary Culture in progress. 11/17/24 15:28 Blood Culture - Final Blood - Venous Bacteroides thetaiotaomicron 11/17/24 15:07 Blood Culture - Final Blood - Venous Bacteroides thetaiotaomicron Procedures Date of Service Date of Service: 11/21/24 Progress Note: A&P Assessment and plan (1) Status post exploratory laparotomy: Status: Acute (2) Perforation of sigmoid colon due to diverticulitis: Status: Acute Plan POD #4 s/p exploratory laparotomy, sigmoid resection, takedown splenic flexure, end colostomy, Tori's pouch for Perforated sigmoid diverticulitis, acute suppurative peritonitis, profound fecal contamination of abdominal cavity. Doing overall fairly well but has refused to get OOB postoperatively. VS- remains on supplemental O2. OOB/ambulation and incentive spirometer 10x/hr strongly encouraged. he has promised to do so today and this will help him from a respiratory standpoint. Cont IV abx. Will advance to solid diet. Ostomy education. Time Spent With Patient Time: Total time managing care of this patient today ____ minutes. Quality Stroke Does the patient have a stroke diagnosis?: No VTE Prior VTE?: No VTE Risk Level:: Surgical - low VTE Device Contraindication: N/A - Device Ordered VTE Drug Contraindication: Treatment Not Indicated
[2024-11-21] MEDS: Potassium Phosphate/NS 15 MMOL/250 ML PLAST..BAG 62.5 MMOL IV (12:18)
[2024-11-21] MEDS: oxyCODONE HCl Immed Release 5 MG TABLET PO (12:26)
--- NOTE | 2024-11-21 13:37 | MHC.CM.PN ---
Patients insurance has been updated. He is now active with Medicaid. POD#4. Plan is to advance diet and mobilize patient. Patient does not have a PCP, which is required for [facility]. DP home self care vs STR via BLS.
--- NOTE | 2024-11-21 15:19 | HO.OSTOMY ---
Ostomy Consult: Initial Teaching 59yr old male admitted to [facility] on 11/17/24 see H&P for detailed history and admission.? Consult for new ostomy teaching. ?He had an End Colostomy creation on 11/18/[address] Rico. ?Upon entry into patient's room, he is lying in his bed, he is alert and oriented x 3, he currently has no complaints. ?Introductions were completed, he is agreeable to continuing with teaching. ? We discussed his pain control at 510 at the current moment, he reports increasing the use of his IS and he reports he has not yet ambulated or got out of bed. Patient was educated on the importance of ambulation and that benefits it will provide. He reports understanding and reports he plans to ambulate this afternoon. We began by discussing general knowledge about the Colostomy and questions he had. ?We discussed opening and closing the ostomy pouch. He was able to independently provide a return demonstration on an empty pouch. ?He had not yet emptied his pouch, he reports he is not yet ready to participate - he reports he has not yet watched them empty. He was encouraged to participate in his own care - he agreed to watching the pouch be emptied as his first step. We discussed the importance of emptying pouch when 1/3 to 1/2 full, how to empty pouch, and lining water with toilet paper to prevent splash back. With an empty Coloplast pouch he performed a demonstration. He was also educated on when to contact director of customer service/Dr Rico's office/seek emergency medical treatment. Patient was given some ostomy pouches for transition to home. Aware that Rx written for pouches and rings will be sent by Outpt nurse to [facility] for home delivery.? Reviewed written education with patient and left at bedside for further review. ?He did not watch the education videos supplied by [facility]. He reported at this time less information is best. He reported feeling nauseous just discussing his ostomy. Permission was granted for pouch assessment and a leak was noted at 3 and 9 o'clock.? Stoma is dark necrotic tissue with central red moist viable tissue.? Thick brown stool noted in pouch. Due to leaking he was agreeable to a pouch change. He refused to watch the pouch change, but he did have some questions that lead to further discussion. Coloplast # [id number] applied vut to 50MM round. Will assess at tomorrow?s teaching for increased readiness for teaching. ?He reported having no questions at this time. ?Patient was made aware that I will return to bedside later in week for ongoing education - however to note patient seems to not be ready for teaching at this time. Rashel continue to present education and material in short frequent sessions. He will benefit from VNA services at time of discharge. ?All questions and concerns addressed at this time. Next teaching session goals: Demonstrate open and close independently Steps to a pouch change he is able to recall
--- NOTE | 2024-11-21 15:58 | PC.NURSE ---
Patient refused to get out of bed earlier but is OOB now in recliner ,tolerated it fairly well,pt stating he will take a walk later
[2024-11-21] MEDS: Fluconazole in NaCl,Iso-Osm 200 MG/100 ML PIGGYBACK 100 MG IV (22:30)
[2024-11-22] VITALS (10 sets, daily range): BP systolic 140–174; BP diastolic 80–99; PULSE 76–103; RESP 16–18; TEMP 36–37.6; O2SAT 88–94
[2024-11-22] MEDS: HYDROmorphone HCl 0.5 MG/0.5 ML SYRINGE IVPUSH ×6 (03:44→23:21)
[2024-11-22] MEDS: Piperacillin Sodium/Tazobactam 3.375 GM in 0.9 % Sodium Chloride 50 ML IV ×4 (03:44→22:51)
--- NOTE | 2024-11-22 08:31 | P.PNGS_ITS ---
Subjective Subjective Date of Service: 11/22/24 Interval history: Was able to get OOB and ambulate halls twice yesterday. Reports some nausea and belching yesterday and this morning. Ostomy continues to function. Has not participated in care and is refusing to do so currently. Physical Exam 2 Vital Signs: Vital Signs: Last Vital Signs Temp 98.2 F 11/22/24 08:00 Pulse 103 H 11/22/24 08:00 Resp 18 11/22/24 08:00 BP 174/97 H 11/22/24 08:00 Pulse Ox 90 L 11/22/24 08:00 O2 Del Method Room Air 11/22/24 08:00 O2 Flow Rate 3 11/22/24 03:35 FiO2 25 11/18/24 16:00 Oxygen Flow Rate 3 11/21/24 17:00 BMI result Body Mass Index 26.6 Const: General: comfortable, no acute distress and alert O rientation/consciousness: patient oriented x3 Resp: Effort & Inspection: normal respiratory effort, no cough and no use of accessory muscles GI: Other: incision clean, some serosanguineous drainage from superior aspect moderate tenderness colostomy with dark stool output, overlying necrosis of superficial aspect and epiploica but functioning Inspection: Yes distended (mild ) Skin: General skin exam: no rashes or lesions noted Neuro: General: patient oriented x3 and moves all extremities Objective Data Active Medications Acetaminophen (Acetaminophen 325 Mg Tablet) 650 mg PO Q6H PRN PRN Reason: Pain, Mild 1-3,fever,headache Albuterol/Ipratropium (Albuterol/Iprat 2.5/0.5mg 3 Ml Ampul.Neb) 3 ml INHALE RQ4H WHILE AWAKE TJ Last Admin: 11/22/24 08:28 Dose: Not Given Documented By: LELA Non-Admin Reason: Patient Refused Hydromorphone HCl (Hydromorphone Hcl 0.5 Mg/0.5 Ml Syringe) 0.5 mg IVPUSH Q2H PRN; Protocol PRN Reason: Pain, Moderate(Pain Scale 4-6) Last Admin: 11/22/24 03:44 Dose: 0.5 mg Documented By: SHAILA Piperacillin Sod/Tazobactam (Sod 3.375 gm/ Sodium Chloride) 50 mls @ 100 mls/hr IV Q6H [facility] Last Infusion: 11/22/24 04:39 Dose: Infused Documented By: SHAILA Fluconazole (Diflucan) 200 mg in 100 mls @ 100 mls/hr IV Q24H [facility] Last Infusion: 11/21/24 23:38 Dose: Infused Documented By: SHAILA Naloxone HCl (Naloxone Hcl 0.4 Mg/Ml Vial) 0.04 mg IVPUSH Q5M PRN PRN Reason: Excessive sedation or RR < 8 Naloxone HCl (Naloxone Hcl 0.4 Mg/Ml Vial) 0.2 mg IVPUSH Q2M PRN PRN Reason: Excessive sedation or RR < 8 Ondansetron HCl (Ondansetron Hcl 4 Mg/2 Ml Vial) 4 mg IVPUSH Q4H PRN PRN Reason: Nausea and Vomiting Last Admin: 11/21/24 01:15 Dose: 4 mg Documented By: KATTY Oxycodone HCl (Oxycodone Hcl Immed Release 5 Mg Tablet) 5 mg PO Q4H PRN PRN Reason: Pain, Moderate(Pain Scale 4-6) Last Admin: 11/21/24 12:26 Dose: 5 mg Documented By: TARUN Sodium Chloride (0.9 % Sodium Chloride Flush 3 Ml Syringe) [facility] Last Admin: 11/22/24 01:35 Dose: Not Given Documented By: SHAILA Non-Admin Reason: Previously Administered Labs 11/19/24 04:18 11/19/24 04:18 Microbiology Microbiology Results: Microbiology 11/17/24 19:00 Gram Stain - Final Abdomen - Abdominal Routine Culture - Final Escherichia coli Anaerobic Culture - Final Bacteroides thetaiotaomicron Procedures Date of Service Date of Service: 11/22/24 Progress Note: A&P Assessment and plan (1) Perforation of sigmoid colon due to diverticulitis: Status: Acute (2) Status post exploratory laparotomy: Status: Acute Plan POD #5 s/p exploratory laparotomy, sigmoid resection, takedown splenic flexure, end colostomy, Tori's pouch for Perforated sigmoid diverticulitis, acute suppurative peritonitis, profound fecal contamination of abdominal cavity. Slowly recovering which is expected. Some nausea this morning. Abd is mildly distended, ostomy with some superficial necrosis but functioning, dark stool concerning for possible GI bleed. Repeat CBC. Initiate PPI. Encouraged oral analgesics in preparation for discharge, return of GI fucntion. Strongly encouraged to increase activity, incentive spirometer use, wean supplemental O2. He refuses to participate in ostomy care currently despite being strongly encouraged in preparation for discharge. Cont IV abx. Diet as tolerated. Continue Ostomy education. Time Spent With Patient Time: Total time managing care of this patient today ____ minutes. Quality Stroke Does the patient have a stroke diagnosis?: No VTE Prior VTE?: No VTE Risk Level:: Surgical - low VTE Device Contraindication: N/A - Device Ordered VTE Drug Contraindication: Treatment Not Indicated
[2024-11-22] MEDS: 0.9 % Sodium Chloride Flush 3 ML SYRINGE IVFLUSH ×3 (08:53→20:38)
[2024-11-22] MEDS: Omeprazole 40 MG CAPSULE.DR PO (08:56)
[2024-11-22 10:01] LABS: MANUAL DIFF FLAG NO
[2024-11-22 10:03] LABS: Basophils Percent Auto 0.2 % (0-2); Eosinophils Absolute Auto 0.1 X10*3/uL (0.0-0.4); Eosinophils Percent Auto 0.6 % (0-4); Hemoglobin 13.4 g/dl (14.0-18.0); Imm Gran Abs Auto 0.43 X10*3/uL (0.00-0.03); Lymphocytes Absolute Auto 1.4 X10*3/uL (1.2-4.9); Lymphocytes Percent Auto 9.7 % (20-40); Mean Corpuscular HGB Conc 35.3 g/dl (31.0-36.0); Mean Corpuscular Hemoglobin 30.7 pg (27.0-33.0); Mean Platelet Volume 8.7 fL (9.4-12.4); Monocytes Absolute Auto 1.1 X10*3/uL (0.1-1.2); Monocytes Percent Auto 7.6 % (2-11); Neutrophils Absolute Auto 11.3 x10*3/uL (2.0-8.3); Neutrophils Percent Auto 78.9 % (45-73); Platelet Count 311 X10*3/uL (160-400); Red Blood Count 4.37 X10*6/uL (4.60-5.80); Red Cell Distribution Width 13.7 % (11.0-16.0); White Blood Count 14.3 X10*3/uL (4.8-10.8)
[2024-11-22 10:20] LABS: Anion Gap 13 (12-20); Blood Urea Nitrogen 10 mg/dL (9-16); Calcium 8.3 mg/dL (8.4-10.2); Carbon Dioxide 25 mmol/L (22-29); Chloride 102 mmol/L (96-108); Creatinine Clr Calc Pharmacy 121.9; Estimated Glomerular Filt Rate > 60; Glucose Fasting 97 mg/dL (60-99); Potassium 3.6 mmol/L (3.3-5.1); Sodium 136 mmol/L (135-145)
[2024-11-22] MEDS: Albuterol/Iprat 2.5/0.5MG 3 ML AMPUL.NEB INHALE ×2 (12:13→15:49)
--- NOTE | 2024-11-22 12:48 | HO.WOUND ---
Addendum entered by Christi Gutierrez RN 11/22/24 16:35: Ostomy Consult: Follow up 1615 - attempted to have patient empty own pouch. initially he refused but was agreeable - he requested a mask due to smell. He was able to independently empt his pouch with minimal assistance. He reported feeling comfortable with the emptying he was encouraged to perform throughout the remainder of his stay with staff standby to assist if needed. He reported he would not be doing it further this was to prove to me he was able to do it. He was encouraged to continue to participate in his care and regain his independence. He was agreeable to me returning tomorrow for pouch change and stoma model pouch change. He was made aware by this television writer he does not have VNA services for home at time of discharge. He reports he feels he will be sucessful despite not having resources of VNA. Original Note: Ostomy Consult: Follow up Teaching 59yr old male admitted to [facility] [place] on 11/17/24 see H&P for detailed history and admission.? Consult for new ostomy teaching. ?He had an End Colostomy creation on 11/18/[address] Rico. ?Upon entry into patient's room, he is lying in his bed, he is alert and oriented x 3, he currently has no complaints. ?He recalls my role in his care from yesterdays visit. At this time he had been out of bed to the chair and reports he ambulated the room once. He is performing his IS regularly per his statement. When asked if the patient had participated in emptying his pouch since yesterday he reported he had not. He joked that the direct care nurse who was present could handle this emptying. He was reminded of the importance of practicing emptying his pouch with trained staff and prior to discharge. He reported he would not be emptying his pouch while inpatient - he felt comfortable he would be able to perform when he arrived at home. I attempted to perform a stoma model on him and he reported feeling to tired to discuss at this time. The pouch was assessed and remains intact no leaking noted. Gas and stool noted in pouch. The patient was able to provide a open close on a empty pouch. At this time due to the patients lack of participation I am unable to determine his level of independence for home and his likelihood of success. TT to Provider Lucie DOMINGUEZ made aware of patients resistance to participation. TT to case mgt to see if VNA will be available to him. Should patient not have VNA available to him there is concern patient is not ready for home as he is not participating inpatient. Next teaching session goals: Demonstrate open and close independently while emptying pouch Steps to a pouch change he is able to recall
--- NOTE | 2024-11-22 14:30 | MHC.CM.PN ---
The [facility] MD brochure has been provided to the patient. He has been encouraged to make an appointment with a PCP once he chooses one. He stated that he would look at the brochure later. [facility] wound care nurse is providing ostomy appliance management education. DP home self care. He will arrange for transportation home.
--- NOTE | 2024-11-22 17:42 | W.PM.IDCN ---
History of Present Illness Data of Consult Service Date: 11/22/24 Requesting physician: Josh Rico Primary Care Provider: None Physician HPI Reason for consult: bacteremia,perforated diverticulitis He presents with over week of abdominal discomfort and trouble walking even. Pain was 10/10 LLQ. He has bacteroides bactremia 2/14 and E coli and bacteroides wound. He has perforated diverticulitis and abscess 5.8x1.5x2.3. He has ostomy and feeling better now. Review of Systems Review of Systems: Yes all other systems are reviewed and are negative [facility] Past Medical History Medical History No pertinent past medical history Family History Family history: reviewed and not pertinent Social History Social History Household Members: Unknown / Unable to assess Housing: Unknown / Unable to assess Alcohol intake: former Patient Tobacco Use Status: Tobacco use Unknown Smoked in Last 30 Days: No Use of substances other than those prescribed or required for medical reasons: Unable to respond Substance Use Type: Unknown Currently Displaying Signs/Symptoms of Drug Intoxication Withdrawal: No Advance Directives: No Advance Directives Information Provided: Yes Do you have a plan to hurt others: No Plan service: No Meds Allergies Allergy/AdvReac Type Severity Reaction Status Date / Time No Known Allergies Allergy Mild NOT Verified 11/17/24 14:54 APPLICABLE Active Medications: Current Medications Acetaminophen (Acetaminophen 325 Mg Tablet) 650 mg PO Q6H PRN PRN Reason: Pain, Mild 1-3,fever,headache Albuterol/Ipratropium (Albuterol/Iprat 2.5/0.5mg 3 Ml Ampul.Neb) 3 ml INHALE RQ4H WHILE AWAKE TJ Last Admin: 11/22/24 15:49 Dose: 3 ml Fluconazole (Fluconazole 100 Mg Tablet) 100 mg PO BEDTIME TJ Hydromorphone HCl (Hydromorphone Hcl 0.5 Mg/0.5 Ml Syringe) 0.5 mg IVPUSH Q2H PRN; Protocol PRN Reason: Pain, Moderate(Pain Scale 4-6) Last Admin: 11/22/24 16:01 Dose: 0.5 mg Piperacillin Sod/Tazobactam (Sod 3.375 gm/ Sodium Chloride) 50 mls @ 100 mls/hr IV Q6H [facility] Last Infusion: 11/22/24 16:54 Dose: Infused Naloxone HCl (Naloxone Hcl 0.4 Mg/Ml Vial) 0.04 mg IVPUSH Q5M PRN PRN Reason: Excessive sedation or RR < 8 Naloxone HCl (Naloxone Hcl 0.4 Mg/Ml Vial) 0.2 mg IVPUSH Q2M PRN PRN Reason: Excessive sedation or RR < 8 Omeprazole (Omeprazole 40 Mg Capsule.Dr) 40 mg PO DAILY@0630 [facility] Last Admin: 11/22/24 08:56 Dose: 40 mg Ondansetron HCl (Ondansetron Hcl 4 Mg/2 Ml Vial) 4 mg IVPUSH Q6H PRN PRN Reason: Nausea and Vomiting Oxycodone HCl (Oxycodone Hcl Immed Release 5 Mg Tablet) 5 mg PO Q4H PRN PRN Reason: Pain, Moderate(Pain Scale 4-6) Last Admin: 11/21/24 12:26 Dose: 5 mg Sodium Chloride (0.9 % Sodium Chloride Flush 3 Ml Syringe) [facility] Last Admin: 11/22/24 16:02 Dose: 3 ml Home Medications ?Medication ?Instructions ?Recorded ?Confirmed ?Last Taken ?Type No Known Home Meds 11/18/24 11/18/24 Unknown History Physical Exam Vital Signs: Vital Signs: Last Vital Signs Temp 99.6 F 11/22/24 15:28 Pulse 76 11/22/24 15:51 Resp 18 11/22/24 15:51 BP 161/99 H 11/22/24 15:28 Pulse Ox 91 L 11/22/24 16:41 O2 Del Method Room Air 11/22/24 16:41 O2 Flow Rate 3 11/22/24 03:35 FiO2 25 11/18/24 16:00 Oxygen Flow Rate 3 11/21/24 17:00 BMI result Body Mass Index 26.6 Const: General: cooperative HEENT: Head: Yes normal to inspection Face and sinus: Yes normal facial exam Mouth: Normal oral and palatal mucosa present Teeth and gingiva: dentition normal Eyes: General: appearance normal, both eyes and all related structures Pupils: Equal, round and reactive pupils present Resp: Effort & Inspection: normal respiratory effort Cardio: Rate: regular rate Rhythm: regular rhythm GI: Other: ostomy clean Palpation (GI): Soft to palpation and nontender : General: Yes no CVA tenderness Back/Spine/Pelvis: Back: no CVA tenderness Skin: General skin exam: no rashes or lesions noted Neuro: General: moves all extremities Cranial nerves: Yes Equal, round and reactive pupils present Extrem: General: Yes normal to inspection Psych: Appearance: grossly normal Results Labs 11/22/24 09:53 11/22/24 09:53 Labs: Short CBC 11/22/24 Range/Units 09:53 WBC 14.3 H (4.8-10.8) X10*3/uL Hgb 13.4 L (14.0-18.0) g/dl Hct 38.0 L (42.0-52.0) % Plt Count 311 D (160-400) X10*3/uL BMP 11/22/24 09:53 Sodium 136 Potassium 3.6 Chloride 102 Carbon Dioxide 25 BUN 10 Creatinine 0.61 Calcium 8.3 L Microbiology Microbiology Results: Microbiology 11/17/24 19:00 Abdomen - Abdominal Gram Stain - Final 11/17/24 19:00 Abdomen - Abdominal Routine Culture - Final Escherichia coli 11/17/24 19:00 Abdomen - Abdominal Anaerobic Culture - Final Bacteroides thetaiotaomicron 11/17/24 15:28 Blood - Venous Blood Culture - Final Bacteroides thetaiotaomicron 11/17/24 15:07 Blood - Venous Blood Culture - Final Bacteroides thetaiotaomicron Assessment and Plan (1) Perforation of sigmoid colon due to diverticulitis: Status: Acute (2) Sepsis: Status: Acute Plan He has anerobic bacteremia and E coli from wound area as well. Agree with piperacillin/tazobactam and finish with po Augmentin or cephalosporin plus metronidazole 500 mg tid outpatient total 14 days antibiotics when improved. Add Flagyl now.
[2024-11-22] MEDS: metroNIDAZOLE/NS 500 MG/100 ML PIGGYBACK 100 MG IV (18:22)
[2024-11-22] MEDS: Fluconazole 100 MG TABLET PO (20:40)
[2024-11-23] VITALS (9 sets, daily range): BP systolic 137–175; BP diastolic 72–99; PULSE 79–95; RESP 14–18; TEMP 36–37.7; O2SAT 92–93
[2024-11-23] MEDS: metroNIDAZOLE/NS 500 MG/100 ML PIGGYBACK 100 MG IV ×3 (03:02→17:13)
[2024-11-23] MEDS: HYDROmorphone HCl 0.5 MG/0.5 ML SYRINGE IVPUSH ×2 (03:58→07:28)
[2024-11-23] MEDS: Piperacillin Sodium/Tazobactam 3.375 GM in 0.9 % Sodium Chloride 50 ML IV ×4 (04:03→22:25)
[2024-11-23] MEDS: Omeprazole 40 MG CAPSULE.DR PO (06:20)
--- NOTE | 2024-11-23 08:59 | PM.PNGS ---
Subjective Subjective Date of Service: 11/23/24 Interval history: Feels improved this morning but still requiring IV pain meds. Began to participate in his ostomy care yesterday. Reports getting OOB and ambulating the halls, using incentive spirometer. Physical Exam Vital Signs: Vital Signs: Last Vital Signs Temp 98.4 F 11/23/24 07:35 Pulse 92 11/23/24 07:35 Resp 16 11/23/24 07:35 BP 175/99 H 11/23/24 07:35 Pulse Ox 92 11/23/24 07:35 O2 Del Method Room Air 11/23/24 07:35 O2 Flow Rate 3 11/22/24 03:35 FiO2 25 11/18/24 16:00 Oxygen Flow Rate 3 11/21/24 17:00 BMI result Body Mass Index 26.6 Const: General: comfortable, no acute distress and alert Orientation/consciousness: patient oriented x3 Resp: Effort & Inspection: normal respiratory effort GI: Other: ostomy mucosal red, liquid stool in appliance incision edematous, sanguineous drainage from superior aspect, no significant erythema Palpation (GI): Soft to palpation, Tenderness to palpation present (GI) (mild incisional) and no guarding Skin: General skin exam: no rashes or lesions noted Neuro: General: patient oriented x3 Objective Data Active Medications Acetaminophen (Acetaminophen 325 Mg Tablet) 650 mg PO Q6H PRN PRN Reason: Pain, Mild 1-3,fever,headache Albuterol/Ipratropium (Albuterol/Iprat 2.5/0.5mg 3 Ml Ampul.Neb) 3 ml INHALE RQ4H WHILE AWAKE [facility] Last Admin: 11/23/24 08:09 Dose: Not Given Documented By: LESA Non-Admin Reason: Patient Refused Fluconazole (Fluconazole 100 Mg Tablet) 100 mg PO BEDTIME [facility] Last Admin: 11/22/24 20:40 Dose: 100 mg Documented By: MARILU Hydromorphone HCl (Hydromorphone Hcl 0.5 Mg/0.5 Ml Syringe) 0.5 mg IVPUSH Q2H PRN; Protocol PRN Reason: Pain, Moderate(Pain Scale 4-6) Last Admin: 11/23/24 07:28 Dose: 0.5 mg Documented By: MEG Piperacillin Sod/Tazobactam (Sod 3.375 gm/ Sodium Chloride) 50 mls @ 100 mls/hr IV Q6H [facility] Last Infusion: 11/23/24 05:13 Dose: Infused Documented By: MARILU Metronidazole (Flagyl) 500 mg in 100 mls @ 100 mls/hr IV Q8H [facility] Last Infusion: 11/23/24 04:02 Dose: Infused Documented By: MARILU Naloxone HCl (Naloxone Hcl 0.4 Mg/Ml Vial) 0.04 mg IVPUSH Q5M PRN PRN Reason: Excessive sedation or RR < 8 Naloxone HCl (Naloxone Hcl 0.4 Mg/Ml Vial) 0.2 mg IVPUSH Q2M PRN PRN Reason: Excessive sedation or RR < 8 Omeprazole (Omeprazole 40 Mg Capsule.Dr) 40 mg PO DAILY@0630 [facility] Last Admin: 11/23/24 06:20 Dose: 40 mg Documented By: MARILU Ondansetron HCl (Ondansetron Hcl 4 Mg/2 Ml Vial) 4 mg IVPUSH Q6H PRN PRN Reason: Nausea and Vomiting Oxycodone HCl (Oxycodone Hcl Immed Release 5 Mg Tablet) 5 mg PO Q4H PRN PRN Reason: Pain, Moderate(Pain Scale 4-6) Last Admin: 11/21/24 12:26 Dose: 5 mg Documented By: TARUN Sodium Chloride (0.9 % Sodium Chloride Flush 3 Ml Syringe) 3 ml IVFLUSH QSHIFT [facility] Last Admin: 11/22/24 20:38 Dose: 3 ml Documented By: MARILU Labs 11/22/24 09:53 11/22/24 09:53 Labs: Laboratory Results - last 24 hr 11/22/24 09:53 MCV 87.0 MCH 30.7 MCHC 35.3 RDW 13.7 Plt Count 311 D MPV 8.7 L Immature Gran % (Auto) 3.0 H Neut % (Auto) 78.9 H Lymph % (Auto) 9.7 L [place] % (Auto) 7.6 Eos % (Auto) 0.6 Baso % (Auto) 0.2 Lymph # (Auto) 1.4 [place] # (Auto) 1.1 Eos # (Auto) 0.1 Baso # (Auto) 0.0 Abs Immat Gran (auto) 0.43 H Absolute Neuts (auto) 11.3 H Absolute Nucleated RBC 0.000 Nucleated RBC % (auto) 0.0 Anion Gap 13 Estim Creat Clear Calc 121.9 Estimated GFR > 60 Fasting Glucose 97 Calcium 8.3 L Procedures Date of Service Date of Service: 11/23/24 Progress Note: A&P Assessment and plan (1) Perforation of sigmoid colon due to diverticulitis: Status: Acute (2) Status post exploratory laparotomy: Status: Acute Plan POD #6 s/p exploratory laparotomy, sigmoid resection, takedown splenic flexure, end colostomy, Tori's pouch for Perforated sigmoid diverticulitis, acute suppurative peritonitis, profound fecal contamination of abdominal cavity. Slowly improving, still using IV analgesics. Abd is benign with clean incision, ostomy viable appearing centrally and functioning well. Repeat CBC this am given leukocytosis yesterday. Initiate PPI. Encouraged oral analgesics in preparation for discharge. Strongly encouraged to increase activity, incentive spirometer use. Cont IV abx- ID consulted for bacteremia. Diet as tolerated. Continue Ostomy education. Has been hypertensive- will ask hospitalists to resee. Time Spent With Patient Time: Total time managing care of this patient today ____ minutes. Quality Stroke Does the patient have a stroke diagnosis?: No VTE Prior VTE?: No VTE Risk Level:: Surgical - low VTE Device Contraindication: N/A - Device Ordered VTE Drug Contraindication: Treatment Not Indicated
[2024-11-23 10:13] LABS: MANUAL DIFF FLAG NO
[2024-11-23 10:28] LABS: Basophils Absolute Auto 0.1 X10*3/uL (0.0-0.2); Basophils Percent Auto 0.5 % (0-2); Eosinophils Absolute Auto 0.1 X10*3/uL (0.0-0.4); Eosinophils Percent Auto 0.8 % (0-4); Hematocrit 38.5 % (42.0-52.0); Hemoglobin 13.7 g/dl (14.0-18.0); Imm Gran Abs Auto 0.59 X10*3/uL (0.00-0.03); Imm Gran Pct Auto 3.9 % (0.0-0.4); Lymphocytes Absolute Auto 1.8 X10*3/uL (1.2-4.9); Lymphocytes Percent Auto 11.8 % (20-40); Mean Corpuscular HGB Conc 35.6 g/dl (31.0-36.0); Mean Corpuscular Hemoglobin 30.4 pg (27.0-33.0); Mean Corpuscular Volume 85.6 fL (80.0-98.0); Mean Platelet Volume 8.8 fL (9.4-12.4); Monocytes Percent Auto 6.6 % (2-11); Neutrophils Absolute Auto 11.7 x10*3/uL (2.0-8.3); Neutrophils Percent Auto 76.4 % (45-73); Platelet Count 405 X10*3/uL (160-400); Red Cell Distribution Width 13.5 % (11.0-16.0); White Blood Count 15.3 X10*3/uL (4.8-10.8)
[2024-11-23] MEDS: 0.9 % Sodium Chloride Flush 3 ML SYRINGE IVFLUSH ×3 (11:01→22:17)
[2024-11-23] MEDS: Acetaminophen 325 MG TABLET 650 MG PO ×3 (11:02→22:57)
[2024-11-23] MEDS: Albuterol/Iprat 2.5/0.5MG 3 ML AMPUL.NEB INHALE ×2 (11:53→19:50)
[2024-11-23] MEDS: HYDROmorphone HCl 2 MG TABLET 4 MG PO ×2 (14:37→22:14)
--- NOTE | 2024-11-23 15:49 | P.PNIM_ITS ---
Subjective Subjective Date of Service: 11/23/24 Interval History: asked to see pt in f/u for elevated HTN pt seen and examined d/w him re: previous diagnosis of HTN --> states he does not have a PCP d/w him re: symptoms of elevated BP which he denies d/w him re: possibly starting antihypertensives now Review of Systems Negative except HPI/interval history. Physical Exam 2 Vital Signs: Vital Signs: Last Vital Signs Temp 98.4 F 11/23/24 11:40 Pulse 79 11/23/24 11:53 Resp 14 11/23/24 11:53 BP 161/87 H 11/23/24 11:40 Pulse Ox 93 11/23/24 11:40 O2 Del Method Room Air 11/23/24 11:40 O2 Flow Rate 3 11/22/24 03:35 FiO2 25 11/18/24 16:00 Oxygen Flow Rate 3 11/21/24 17:00 BMI result Body Mass Index 26.6 Const: Other: awake alert nad s1s2 lungs clear abd ostomy in place, draining liquid stool Objective Data Active Medications Acetaminophen (Acetaminophen 325 Mg Tablet) 650 mg PO Q6H [facility] Last Admin: 11/23/24 11:02 Dose: 325 mg Documented By: MEG Albuterol/Ipratropium (Albuterol/Iprat 2.5/0.5mg 3 Ml Ampul.Neb) 3 ml INHALE RQ4H WHILE AWAKE [facility] Last Admin: 11/23/24 11:53 Dose: 3 ml Documented By: LESA Fluconazole (Fluconazole 100 Mg Tablet) 100 mg PO BEDTIME [facility] Last Admin: 11/22/24 20:40 Dose: 100 mg Documented By: MARILU Hydromorphone HCl (Hydromorphone Hcl 0.5 Mg/0.5 Ml Syringe) 0.5 mg IVPUSH Q4H PRN; Protocol PRN Reason: Pain, Moderate(Pain Scale 4-6) Hydromorphone HCl (Hydromorphone Hcl 2 Mg Tablet) 4 mg PO Q4H PRN PRN Reason: Pain, Moderate(Pain Scale 4-6) Last Admin: 11/23/24 14:37 Dose: 4 mg Documented By: ELSY Piperacillin Sod/Tazobactam (Sod 3.375 gm/ Sodium Chloride) 50 mls @ 100 mls/hr IV Q6H [facility] Last Infusion: 11/23/24 11:45 Dose: Infused Documented By: MEG Metronidazole (Flagyl) 500 mg in 100 mls @ 100 mls/hr IV Q8H [facility] Last Infusion: 11/23/24 12:52 Dose: Infused Documented By: MEG Ibuprofen (Ibuprofen 600 Mg Tablet) 600 mg PO Q6H PRN PRN Reason: Pain, Mild 1-3,fever,headache Naloxone HCl (Naloxone Hcl 0.4 Mg/Ml Vial) 0.04 mg IVPUSH Q5M PRN PRN Reason: Excessive sedation or RR < 8 Naloxone HCl (Naloxone Hcl 0.4 Mg/Ml Vial) 0.2 mg IVPUSH Q2M PRN PRN Reason: Excessive sedation or RR < 8 Omeprazole (Omeprazole 40 Mg Capsule.Dr) 40 mg PO DAILY@0630 [facility] Last Admin: 11/23/24 06:20 Dose: 40 mg Documented By: MARILU Ondansetron HCl (Ondansetron Hcl 4 Mg/2 Ml Vial) 4 mg IVPUSH Q6H PRN PRN Reason: Nausea and Vomiting Sodium Chloride (0.9 % Sodium Chloride Flush 3 Ml Syringe) 3 ml IVFLUSH QSHIFT [facility] Last Admin: 11/23/24 11:01 Dose: 3 ml Documented By: MEG Labs 11/23/24 10:04 11/22/24 09:53 Labs: Laboratory Results - last 24 hr 11/23/24 10:04 MCV 85.6 MCH 30.4 MCHC 35.6 RDW 13.5 Plt Count 405 H D MPV 8.8 L Immature Gran % (Auto) 3.9 H Neut % (Auto) 76.4 H Lymph % (Auto) 11.8 L [place] % (Auto) 6.6 Eos % (Auto) 0.8 Baso % (Auto) 0.5 Lymph # (Auto) 1.8 [place] # (Auto) 1.0 Eos # (Auto) 0.1 Baso # (Auto) 0.1 Abs Immat Gran (auto) 0.59 H Absolute Neuts (auto) 11.7 H Absolute Nucleated RBC 0.000 Nucleated RBC % (auto) 0.0 Assessment and Plan (1) Elevated blood pressure reading: Status: Acute Plan 58 yo M admitted under the surgical services for perforated sigmoid diverticulitis s/p surgical repair and ICU stay Medicine reconsulted for elevated BP. 1. Elevated BP pt denies prior diagnosis and not on any BP meds likely has underlying HTN which is exacerbated by this acute illness/pain d/w him about starting anti-hypertensives while he is in the hospital. He opts to consider it as an ouptatient; educated on effect of acutely and chronically elevated BP; he is agreeable that if BP remains significatly elevated (170-180+) he would consider starting something. for now will monitor will f/u tomorrow and re-discuss with the pt. continue other care per primary team. Quality Stroke Does the patient have a stroke diagnosis?: No VTE Prior VTE?: No VTE Risk Level:: Surgical - low VTE Device Contraindication: N/A - Device Ordered VTE Drug Contraindication: Treatment Not Indicated
--- NOTE | 2024-11-23 17:34 | HO.OSTOMY ---
Ostomy Consult: Follow up Teaching 59yr old male [place] [facility] [place] see H&P for detailed history and admission.? Consult for new ostomy teaching. ?He had an End Colostomy creation on 11/18/[address] Rico. ?Upon entry into patient's room, he is sitting in his recliner, he is alert and oriented x 3, he currently has no complaints. ?He recalls my role in his care from yesterdays visit. At this time he had been out of bed to the chair and reports he has not yet ambulated - this was 1600. He is performing his IS regularly per his statement. When asked if the patient had participated in emptying his pouch since yesterday he reported he had not, but he had watched them. He reminded me he would not be performing here at [facility]. He appears to be resistive to participation I informed him I wanted him to observe a stoma model pouch change and then assist me with his pouch change. He was agreeable. He was able to verbally walk me through steps to pouch change after he was provided a demonstration on the stoma model. However at the time of his pouch change he covered his face with a towel and mask and moaned due to what he thought was odor. When asked to remove the towel and observe he was able to briefly watch but was not able to hold consistent attention to the task of changing his pouch. After it was changed I shared my concern that he was going home without VNA services and what would he do if he had to change his pouch - he reported he would be fine . When pressed he informed me the general surgery team reported they would provide continued teaching on an outpt basis. This was not confirmed with the general surgery team. When I questioned this and began to again share my concern that he would not be able to get into the office for routine pouch changes he began to get angry and questioned if I was calling him a liar. I redirected the conversation to preparedness for discharge. He was then educated on when to contact fast food delivery driver/Dr Rico's office/seek emergency medical treatment. Patient was given some ostomy pouches for transition to home. Aware that Rx written for pouches and rings will be sent by Outpt nurse to [place] for home delivery.? Reviewed written education with patient and left at bedside for further review. We discussed the following steps: 1. Empty pouch before pouch change 2. Remove pouch using push/pull technique from top to bottom 3. Cleanse stoma and skin with tap water only - no soap or baby wipes 4. Pat dry 5. Measure stoma and cut new pouch no more than 1/8 inch larger than stoma and no smaller than stoma 6. If instructed by your ostomy nurse stretch barrier seal to the size of the stoma and press onto skin around stoma (up to the edge of the stoma but not onto the stoma) 7. Press the new pouch into place and hold for several minutes (close pouch tail) 8. Empty pouch when 1/3 to 1/2 full 9. Change pouch twice weekly on a schedule (for example, every Wednesday and ) and as needed for any leaking (feels like intense itch or burn at edge of stoma) 10. May order pre-cut pouches (already cut to size of stoma) once stoma measures the same size consistently. ?
[2024-11-23] MEDS: Fluconazole 100 MG TABLET PO (22:14)
[2024-11-23] MEDS: Melatonin 3 MG TABLET 6 MG PO (22:56)
[2024-11-24 03:08] VITALS: BP 149/88; PULSE 85; RESP 18; TEMP 36.3; O2SAT 96
[2024-11-24] MEDS: metroNIDAZOLE/NS 500 MG/100 ML PIGGYBACK 100 MG IV ×2 (03:18→11:05)
[2024-11-24] MEDS: Piperacillin Sodium/Tazobactam 3.375 GM in 0.9 % Sodium Chloride 50 ML IV ×2 (04:20→10:25)
[2024-11-24] MEDS: Acetaminophen 325 MG TABLET 650 MG PO ×2 (06:10→10:36)
[2024-11-24] MEDS: Omeprazole 40 MG CAPSULE.DR PO (06:10)
[2024-11-24 07:58] VITALS: BP 160/97; PULSE 84; RESP 18; TEMP 36.7; O2SAT 92
[2024-11-24] MEDS: 0.9 % Sodium Chloride Flush 3 ML SYRINGE IVFLUSH (08:03)
[2024-11-24] MEDS: iohexoL 350 MG/ML 75 ML INFUS..BTL 85 ML IV (08:47)
--- NOTE | 2024-11-24 08:59 | P.PNGS_ITS ---
Subjective Subjective Date of Service: 11/24/24 Interval history: Feels improved this morning. Slept well. Tolerating solid diet. OOB and ambulating. Ostomy functioning well, beginning to participate in care. Physical Exam 2 Vital Signs: Vital Signs: Last Vital Signs Temp 98.0 F 11/24/24 07:58 Pulse 84 11/24/24 07:58 Resp 18 11/24/24 07:58 BP 160/97 H 11/24/24 07:58 Pulse Ox 92 11/24/24 07:58 O2 Del Method Room Air 11/24/24 07:58 O2 Flow Rate 3 11/22/24 03:35 FiO2 25 11/18/24 16:00 Oxygen Flow Rate 3 11/21/24 17:00 BMI result Body Mass Index 26.6 Const: General: comfortable, no acute distress and alert O rientation/consciousness: patient oriented x3 Resp: Effort & Inspection: normal respiratory effort GI: Other: ostomy edematous, beefy red centrally Inspection: Yes distended (soft) and Yes incision (clean, some thin drainage superiorly ) Palpation (GI): Soft to palpation, Tenderness to palpation present (GI) (mild incisional) and no guarding Skin: General skin exam: no rashes or lesions noted Neuro: General: patient oriented x3 and moves all extremities Objective Data Active Medications Acetaminophen (Acetaminophen 325 Mg Tablet) 650 mg PO Q6H [facility] Last Admin: 11/24/24 06:10 Dose: 650 mg Documented By: MARILU Albuterol/Ipratropium (Albuterol/Iprat 2.5/0.5mg 3 Ml Ampul.Neb) 3 ml INHALE RQ4H WHILE AWAKE [facility] Last Admin: 11/24/24 08:23 Dose: Not Given Documented By: JESSICA Non-Admin Reason: pt at CT scan Fluconazole (Fluconazole 100 Mg Tablet) 100 mg PO BEDTIME [facility] Last Admin: 11/23/24 22:14 Dose: 100 mg Documented By: MARILU Hydromorphone HCl (Hydromorphone Hcl 0.5 Mg/0.5 Ml Syringe) 0.5 mg IVPUSH Q4H PRN; Protocol PRN Reason: Pain, Moderate(Pain Scale 4-6) Hydromorphone HCl (Hydromorphone Hcl 2 Mg Tablet) 4 mg PO Q4H PRN PRN Reason: Pain, Moderate(Pain Scale 4-6) Last Admin: 11/23/24 22:14 Dose: 4 mg Documented By: MARILU Piperacillin Sod/Tazobactam (Sod 3.375 gm/ Sodium Chloride) 50 mls @ 100 mls/hr IV Q6H [facility] Last Infusion: 11/24/24 04:53 Dose: Infused Documented By: MARILU Metronidazole (Flagyl) 500 mg in 100 mls @ 100 mls/hr IV Q8H [facility] Last Infusion: 11/24/24 04:20 Dose: Infused Documented By: MARILU Ibuprofen (Ibuprofen 600 Mg Tablet) 600 mg PO Q6H PRN PRN Reason: Pain, Mild 1-3,fever,headache Melatonin (Melatonin 3 Mg Tablet) 6 mg PO BEDTIME PRN PRN Reason: Insomnia Last Admin: 11/23/24 22:56 Dose: 6 mg Documented By: MARILU Naloxone HCl (Naloxone Hcl 0.4 Mg/Ml Vial) 0.04 mg IVPUSH Q5M PRN PRN Reason: Excessive sedation or RR < 8 Naloxone HCl (Naloxone Hcl 0.4 Mg/Ml Vial) 0.2 mg IVPUSH Q2M PRN PRN Reason: Excessive sedation or RR < 8 Omeprazole (Omeprazole 40 Mg Capsule.Dr) 40 mg PO DAILY@0630 [facility] Last Admin: 11/24/24 06:10 Dose: 40 mg Documented By: MARILU Ondansetron HCl (Ondansetron Hcl 4 Mg/2 Ml Vial) 4 mg IVPUSH Q6H PRN PRN Reason: Nausea and Vomiting Sodium Chloride (0.9 % Sodium Chloride Flush 3 Ml Syringe) 3 ml IVFLUSH QSHIFT [facility] Last Admin: 11/24/24 08:03 Dose: 3 ml Documented By: MEG Labs 11/23/24 10:04 11/22/24 09:53 Labs: Laboratory Results - last 24 hr 11/23/24 10:04 MCV 85.6 MCH 30.4 MCHC 35.6 RDW 13.5 Plt Count 405 H D MPV 8.8 L Immature Gran % (Auto) 3.9 H Neut % (Auto) 76.4 H Lymph % (Auto) 11.8 L [place] % (Auto) 6.6 Eos % (Auto) 0.8 Baso % (Auto) 0.5 Lymph # (Auto) 1.8 [place] # (Auto) 1.0 Eos # (Auto) 0.1 Baso # (Auto) 0.1 Abs Immat Gran (auto) 0.59 H Absolute Neuts (auto) 11.7 H Absolute Nucleated RBC 0.000 Nucleated RBC % (auto) 0.0 Procedures Date of Service Date of Service: 11/24/24 Progress Note: A&P Assessment and plan (1) Elevated blood pressure reading: Status: Acute (2) Perforation of sigmoid colon due to diverticulitis: Status: Acute (3) Status post exploratory laparotomy: Status: Acute Plan POD #7 s/p exploratory laparotomy, sigmoid resection, takedown splenic flexure, end colostomy, Tori's pouch for Perforated sigmoid diverticulitis, acute suppurative peritonitis, profound fecal contamination of abdominal cavity. Doing well, pain controlled, ambulating. Abd is benign with clean incision, ostomy viable appearing centrally and functioning well. CBC trending up- will obtain CT scan abd/pelvis to r/o abscess. If negative, possible dc to home today on oral abx. Unfortunately has no PCP currently and unable to get VNA. Has been hypertensive- hospitalists following. Pt refusing starting antihypertensives during stay. Time Spent With Patient Time: Total time managing care of this patient today ____ minutes. Quality Stroke Does the patient have a stroke diagnosis?: No VTE Prior VTE?: No VTE Risk Level:: Surgical - low VTE Device Contraindication: N/A - Device Ordered VTE Drug Contraindication: Treatment Not Indicated
[2024-11-24] MEDS: HYDROmorphone HCl 2 MG TABLET 4 MG PO ×2 (10:35→14:35)
--- NOTE | 2024-11-24 11:08 | P.DS_ITS ---
DS: Providers Provider Date of Service: 11/24/24 Date of admission: 11/17/24 20:10 Date of discharge: 11/24/24 Primary care physician: Crystal Physician Attending physician on admission: Josh Rico Consults: 11/21/24 07:52 Consult to Ostomy Care Routine 11/22/24 13:57 Consult to Infectious Diseases Routine Consulting Provider: [facility] Reason for consultation: perf diverticulitis, positive BC, duration of abx Has provider been notified: No 11/23/24 10:11 Consult to Hospitalist Routine Comment: Consulting Provider: [facility] Reason For Exam: HTN Attending physician on discharge: Josh Rico DS: Diagnosis Discharge Diagnosis (1) Elevated blood pressure reading: Status: Acute DS: Summary Hospital Course Hospital Course: HPI AT ADMISSION: Koko Thomason is a 58 year old male who presents with roughly 4 days of progressively worsening lower abdominal pain. Because of progression of symptoms, he finally sought to be evaluated emergency department. Workup demonstrates significant leukocytosis, and CT scan shows massive free air and phlegmonous changes in the lower abdomen/colon most probably consistent with a perforated sigmoid diverticulitis. Patient was never sought medical attention. He does not know of any known colon comorbidities because he has never been evaluated by a medical care physician. His only past surgical history is infancy for pyloric stenosis. Chart was reviewed and patient evaluated. HOSPITAL COURSE: Situation of perforated viscus was reviewed with the patient and emergent need for surgical intervention discussed. Risks, benefits, alternatives of exploratory laparotomy with probable bowel resection most probably sigmoid colon with end-colostomy and Linus's pouch were reviewed with the patient and included but not limited to bleeding, numbness, pain, scarring, cardiac or pulmonary issues, wound issues, ostomy issues and the patient wishes to proceed. On 11/17/24, exploratory laparotomy, sigmoid resection, takedown splenic flexure, end colostomy, Linus's pouch was performed by Dr. Rico without immediate complication. Intraoperative findings demonstrated profound perforated sigmoid diverticulitis with acute suppurative and fecal peritonitis involving the entire abdominal cavity. Sigmoid colon was markedly edematous/thickened, phlegmonous. The patient was felt to be high risk of decompensation given significant peritonitis and therefore was transferred to the ICU intubated for close monitoring and care. He had an uncomplicated but expected slow recovery course. He was continued on IV zosyn and diflucan. He was extubated on 11/18/24 and remained stable overnight and was transferred to the medical/surgical floor with hospitalist consult for his medical comorbidities. His ostomy began to function on POD #1. He was started on clear liquids once extubated and stable from respiratory standpoint. His guevara was removed. He unfortunately refused to get out of bed until POD #4 despite strong encouragement and education. His activity was increased once he became agreeable. His diet was advanced to solids. He had a bacteroides bactremia and E coli/bacteroides from his peritoneal cultures and ID was therefore consulted and recommended cephalosporin plus metronidazole 500 mg TID outpatient total 14 days. Ostomy education was performed. His WBC uptrended slightly and therefore CT scan abd/pelvis was performed which showed different sizes of peritoneal collections but nothing drainable. He was overall clinically appearing well and felt ready for discharge. He was tolerating a solid diet without nausea or vomiting, ambulating without difficulty, had good pain control on oral analgesics. He was hemodynamically stable and his abdomen was benign with clean and his ostomy had some patchy serosal necrosis but viable appearing with good output. He was discharged to home on 11/24/24 in stable condition on an oral course of ceftin/flagyl. He is to follow up with Dr. Rico in the office in 1 week. He unfortunately did not have a PCP and was unable to obtain VNA services. Of note, hospitalists were asked to resee patient as he had persistently elevated SBP. They recommended initiating antihypertensive therapy while inpatient on multiple occasions but he refused. He is to f/u with his PCP regarding further management once he obtains one. Status at Discharge Functional status at discharge: independent ambulation Overall status at discharge: patient is progressing back to baseline Time Attestation Discharge Coordination Time (in mins): 45 Quality: Safe Use of Opioids Does Pt have an Active Cancer Diagnosis on the Problem List?: No Quality: Stroke Does the patient have a stroke diagnosis?: No Physical Exam Vital Signs: Vital Signs: Last Vital Signs Temp 98.0 F 11/24/24 15:22 Pulse 87 11/24/24 15:22 Resp 16 11/24/24 15:22 BP 140/90 H 11/24/24 15:22 Pulse Ox 96 11/24/24 15:22 O2 Del Method Room Air 11/24/24 15:22 O2 Flow Rate 3 11/22/24 03:35 FiO2 25 11/18/24 16:00 Oxygen Flow Rate 3 11/21/24 17:00 BMI result Body Mass Index 26.6 Const: General: comfortable, no acute distress and alert Orientation/consciousness: patient oriented x3 Resp: Effort & Inspection: normal respiratory effort GI: Other: incision clean, some sanguineous drainage from superior aspect ostomy edematous with patchy serosal necrosis, functioning well with large volume stool output Palpation (GI): Soft to palpation, Tenderness to palpation present (GI) (mild incisional) and no guarding Skin: General skin exam: no rashes or lesions noted Neuro: General: patient oriented x3 and moves all extremities DS: Data Data Completed and Pending Completed studies during hospitalization [Text1]: 11/17/24 20:08 Surgical [PTH] Routine Colon, sigmoid, segmental resection: -Acute on chronic diverticulitis, spastic diverticulosis with luminal narrowing, and perforation with serositis and adhesions. -Bowel mucosa with crypt distortion and pigmented lamina propria macrophages. -One benign pericolonic lymph node. Discharge Plan Discharge Anticipated Discharge Date/Time: 11/24/24 13:54 Patient Disposition: Home, Self-Care Discharge Diagnosis: perforated diverticulitis, s/p linus procedure Referrals: Physician,None [Primary Care Provider] - 1 Week Josh Rico MD [Physician] - 1 Week Discharge Medications: New metronidazole 500 mg tablet 500 mg PO TID Qty: 21 0RF cefuroxime axetil 500 mg tablet 500 mg PO BID Qty: 14 0RF hydromorphone [Dilaudid] 2 mg tablet 2 mg PO Q4-6H PRN (Reason: pain (scale score 7-10)) Qty: 30 0RF Rx Instructions: Partial Fill upon patient request. Discharge Orders: Discharge Order (Routine); Ordered 11/24/24 Ordered By: Aida Goddard Diet: Advance to usual diet Activity on Discharge: No heavy lifting Stand Alone Forms: Patient Portal Discharge page Print Language: [place] Activity Restrictions/Additional Instructions: Apply an ice pack for short intervals (20 minutes on, followed by at least 20 minutes off) for the first 2 days. Do not apply heat. Do not use creams, lotions, or topical antibiotics. These can cause infection or allergic reaction. Ok to shower. Continue to use your incentive spirometer 10x/hr while you are at home. Ostomy recommendations: 1. Empty pouch before pouch change 2. Remove pouch using push/pull technique from top to bottom 3. Cleanse stoma and skin with tap water only - no soap or baby wipes 4. Pat dry 5. Measure stoma and cut new pouch no more than 1/8 inch larger than stoma and no smaller than stoma 6. If instructed by your ostomy nurse stretch barrier seal to the size of the stoma and press onto skin around stoma (up to the edge of the stoma but not onto the stoma) 7. Press the new pouch into place and hold for several minutes (close pouch tail) 8. Empty pouch when 1/3 to 1/2 full 9. Change pouch twice weekly on a schedule (for example, every Wednesday and ) and as needed for any leaking (feels like intense itch or burn at edge of stoma) 10. May order pre-cut pouches (already cut to size of stoma) once stoma measures the same size consistently. ? Follow up in office with Dr. Rico in 1 week. ([phone]) Find PCP and follow up regarding hypertension. No heavy lifting (>10lbs) or strenuous activity! Can resume daily activities. Call Your Doctor If: -Your temperature exceeds 101.5? F -You experience excessive pain or swelling -You have an unexpected reaction to medication -You have excessive bleeding -You experience continued vomiting/nausea -Your incision begins to separate -Your incision shows signs of infection such as increased redness, swelling, excessive pain, drainage (light blood or clear fluid is normal) or heat Care Plan Goals: Return to baseline health and resume normal activities following recovery period. Health Concerns: perforated diverticulitis bacteremia elevated blood pressure Plan of Treatment: s/p linus procedure IV abx transitioned to oral antibiotics f/u in office in 1 week Ostomy care Assessment: Doing well post op Patient Instructions: Colostomy Care (GEN) Discharge Date/Time: 11/24/24 15:23
--- NOTE | 2024-11-24 12:10 | P.PNIM_ITS ---
Subjective Subjective Date of Service: 11/24/24 Interval History: Seen and examined this morning Immediately as I entered his room, patient stated that he is not going to take antihypertensives Attempted to discuss with him about its benefits but he states that he wants to wait until after discharge Physical Exam 2 Vital Signs: Vital Signs: Last Vital Signs Temp 98.0 F 11/24/24 07:58 Pulse 84 11/24/24 07:58 Resp 18 11/24/24 07:58 BP 160/97 H 11/24/24 07:58 Pulse Ox 92 11/24/24 07:58 O2 Del Method Room Air 11/24/24 07:58 O2 Flow Rate 3 11/22/24 03:35 FiO2 25 11/18/24 16:00 Oxygen Flow Rate 3 11/21/24 17:00 BMI result Body Mass Index 26.6 Const: Other: awake and alert nad Objective Data Active Medications Acetaminophen (Acetaminophen 325 Mg Tablet) 650 mg PO Q6H [facility] Last Admin: 11/24/24 10:36 Dose: 650 mg Documented By: MEG Albuterol/Ipratropium (Albuterol/Iprat 2.5/0.5mg 3 Ml Ampul.Neb) 3 ml INHALE RQ4H WHILE AWAKE [facility] Last Admin: 11/24/24 12:05 Dose: Not Given Documented By: DINH Non-Admin Reason: Patient Refused Fluconazole (Fluconazole 100 Mg Tablet) 100 mg PO BEDTIME [facility] Last Admin: 11/23/24 22:14 Dose: 100 mg Documented By: MARILU Hydromorphone HCl (Hydromorphone Hcl 0.5 Mg/0.5 Ml Syringe) 0.5 mg IVPUSH Q4H PRN; Protocol PRN Reason: Pain, Moderate(Pain Scale 4-6) Hydromorphone HCl (Hydromorphone Hcl 2 Mg Tablet) 4 mg PO Q4H PRN PRN Reason: Pain, Moderate(Pain Scale 4-6) Last Admin: 11/24/24 10:35 Dose: 4 mg Documented By: MEG Piperacillin Sod/Tazobactam (Sod 3.375 gm/ Sodium Chloride) 50 mls @ 100 mls/hr IV Q6H [facility] Last Infusion: 11/24/24 11:10 Dose: Infused Documented By: MEG Metronidazole (Flagyl) 500 mg in 100 mls @ 100 mls/hr IV Q8H [facility] Last Admin: 11/24/24 11:05 Dose: 100 mls/hr Documented By: MEG Ibuprofen (Ibuprofen 600 Mg Tablet) 600 mg PO Q6H PRN PRN Reason: Pain, Mild 1-3,fever,headache Melatonin (Melatonin 3 Mg Tablet) 6 mg PO BEDTIME PRN PRN Reason: Insomnia Last Admin: 11/23/24 22:56 Dose: 6 mg Documented By: MARILU Naloxone HCl (Naloxone Hcl 0.4 Mg/Ml Vial) 0.04 mg IVPUSH Q5M PRN PRN Reason: Excessive sedation or RR < 8 Naloxone HCl (Naloxone Hcl 0.4 Mg/Ml Vial) 0.2 mg IVPUSH Q2M PRN PRN Reason: Excessive sedation or RR < 8 Omeprazole (Omeprazole 40 Mg Capsule.Dr) 40 mg PO DAILY@0630 [facility] Last Admin: 11/24/24 06:10 Dose: 40 mg Documented By: MARILU Ondansetron HCl (Ondansetron Hcl 4 Mg/2 Ml Vial) 4 mg IVPUSH Q6H PRN PRN Reason: Nausea and Vomiting Sodium Chloride (0.9 % Sodium Chloride Flush 3 Ml Syringe) 3 ml IVFLUSH QSHIFT [facility] Last Admin: 11/24/24 08:03 Dose: 3 ml Documented By: MEG Labs 11/23/24 10:04 11/22/24 09:53 Assessment and Plan (1) Elevated blood pressure reading: Status: Acute Plan 58 yo M admitted under the surgical services for perforated sigmoid diverticulitis s/p surgical repair and ICU stay Medicine reconsulted for elevated BP. 1. Elevated BP BP remains elevated but has not required any IV antihypertensives Attempted to discuss with him again about initiating blood pressure meds. He refuses at this time. I have recommended to him that he should follow-up once he has obtained a PCP and strongly consider starting. We will sign off at this time. Please consult p.r.n. Quality Stroke Does the patient have a stroke diagnosis?: No VTE Prior VTE?: No VTE Risk Level:: Surgical - low VTE Device Contraindication: N/A - Device Ordered VTE Drug Contraindication: Treatment Not Indicated
[2024-11-24 13:16] VITALS: BP 132/93; PULSE 95; RESP 18; TEMP 36.8; O2SAT 94
--- NOTE | 2024-11-24 14:54 | MHC.CM.PN ---
PT CLEARED TO DC HOME TODAY WITH NO SERVICES VIA PRIVATE TRANSPORT
[2024-11-24 15:22] VITALS: BP 140/90; PULSE 87; RESP 16; TEMP 36.7; O2SAT 96
== END 2024-11-24 15:23 | disposition home or self-care (01) | DRG 231 ==
LOC: HO.ED 16:24 → HO.SSS 16:44 → HO.ICU 21:34 → HO.S3 11-19 16:19
PROVIDERS: Nurse Practitioner Acute Care; Physician Assistant Medical; Physician Assistant Surgical; Absent Provider Surgery; Admitting Provider Surgery; Emergency Provider Emergency Medicine; Visit Provider Surgery
PROC: 0DBN0ZZ Excision of Sigmoid Colon, Open Approach (ICD-10-PCS; CPT 49000; principal; 2024-11-17 16:30)
DX: K57.20 Diverticulitis of large intestine with perforation and abscess without bleeding (principal); K65.0 Generalized (acute) peritonitis; I10 Essential (primary) hypertension; N17.9 Acute kidney failure, unspecified; E83.39 Other disorders of phosphorus metabolism; E87.21 Acute metabolic acidosis; D62 Acute posthemorrhagic anemia; B96.20 Unspecified Escherichia coli [E. coli] as the cause of diseases classified elsewhere; E86.0 Dehydration; Z79.899 Other long term (current) drug therapy
CPT/HCPCS: 36415; 71045; 74177; 80048; 80053; 80076; 80307; 81001; 81003; 82803; 83605; 83690; 83735; 83880; 84100; 84484; 85007; 85025; 85027; 85610; 86850; 86900; 86901; 87040; 87070; 87073; 87076; 87077; 87185; 87186; 87205; 87502; 87640; 87641; 88307; 93005; 94002; 94003; 94640; 99285; C1758; J1171; J1450; J1836; J2003; J2405; J2470; J2543; J2704; J2795; J3010; J7120; P9047; Q9967

== ENCOUNTER → 2024-11-17 14:56 | Outpatient (BNV) | payer MEDICAID, SELFPAY | PROVIDERS: Absent Provider Surgery; Admitting Provider Surgery; Emergency Provider Emergency Medicine; Visit Provider Internal Medicine Cardiovascular Disease | DX: R00.0 Tachycardia, unspecified (principal) | CPT/HCPCS: 93010 ==

== ENCOUNTER → 2024-11-17 15:05 | Outpatient (BNV) | payer MEDICAID, SELFPAY | PROVIDERS: Emergency Provider Emergency Medicine; Visit Provider Radiology Diagnostic Radiology | DX: K57.80 Diverticulitis of intestine, part unspecified, with perforation and abscess without bleeding (principal); E27.9 Disorder of adrenal gland, unspecified; K66.8 Other specified disorders of peritoneum; R91.8 Other nonspecific abnormal finding of lung field | CPT/HCPCS: 71045; 74177 ==

== ENCOUNTER → 2024-11-17 16:31 | Outpatient (BNV) | payer MEDICAID, SELFPAY | PROVIDERS: Emergency Provider Emergency Medicine; Visit Provider Surgery | DX: Z98.890 Other specified postprocedural states (principal); K57.20 Diverticulitis of large intestine with perforation and abscess without bleeding | CPT/HCPCS: 44139; 44143; 99024; 99223; 99239 ==

== ENCOUNTER 2024-11-17 20:10 | Outpatient (BNV) | payer MEDICAID, SELFPAY | END 2024-11-24 08:34 | PROVIDERS: Absent Provider Surgery; Admitting Provider Surgery; Emergency Provider Emergency Medicine; Visit Provider Radiology Diagnostic Radiology | DX: K57.20 Diverticulitis of large intestine with perforation and abscess without bleeding (principal); D72.829 Elevated white blood cell count, unspecified | CPT/HCPCS: 74177 ==

== ENCOUNTER 2024-11-17 20:10 | Outpatient (BNV) | payer MEDICAID, SELFPAY | END 2024-11-19 13:55 | PROVIDERS: Absent Provider Surgery; Admitting Provider Surgery; Emergency Provider Emergency Medicine; Visit Provider Radiology Vascular & Interventional Radiology | DX: J96.01 Acute respiratory failure with hypoxia (principal); J98.11 Atelectasis | CPT/HCPCS: 71045 ==

== ENCOUNTER → 2024-11-17 20:10 | Outpatient (BNV) | payer MEDICAID, SELFPAY | PROVIDERS: Absent Provider Surgery; Admitting Provider Surgery; Emergency Provider Emergency Medicine; Visit Provider Physician Assistant Medical | DX: K63.1 Perforation of intestine (nontraumatic) (principal); K57.20 Diverticulitis of large intestine with perforation and abscess without bleeding; Z98.890 Other specified postprocedural states; D72.829 Elevated white blood cell count, unspecified | CPT/HCPCS: 99291 ==

== ENCOUNTER → 2024-11-17 20:10 | Outpatient (BNV) | payer MEDICAID, SELFPAY | PROVIDERS: Absent Provider Surgery; Admitting Provider Surgery; Emergency Provider Emergency Medicine; Visit Provider Internal Medicine | DX: K57.20 Diverticulitis of large intestine with perforation and abscess without bleeding (principal); A41.9 Sepsis, unspecified organism | CPT/HCPCS: 99222 ==

== ENCOUNTER → 2024-11-17 20:10 | Outpatient (BNV) | payer MEDICAID, SELFPAY | PROVIDERS: Absent Provider Surgery; Admitting Provider Surgery; Emergency Provider Emergency Medicine; Visit Provider Nurse Practitioner Acute Care | DX: R03.0 Elevated blood-pressure reading, without diagnosis of hypertension (principal) | CPT/HCPCS: 99499 ==

== ENCOUNTER 2024-11-29 07:40 | Outpatient (AMB) | payer MEDICAID, SELFPAY ==
[2024-11-29 07:45] VITALS: BP 181/93; PULSE 136; BMI 24.7
--- NOTE | 2024-11-29 07:45 | A.OFFVIS_ITS ---
Vital Signs 11/29/24 07:45 Height 5 ft 7 in Weight 158 lb BMI 24.7 BP 181/93 H Blood Pressure Location Rt brachial Position Sitting Pulse 136 H Intake Visit Reasons: s/p exploratory laparotomy, sigmoid resection Intake Note: Patient here s/p exploratory laparotomy, sigmoid resection, takedown splenic flexure, end colostomy, Tori's pouch. Reports incisions healing well. Patient c/o: no concerns. Taking rx pain meds as needed. 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 All things considered, patient was doing well. He is tolerating a diet. Ostomy is functioning. He is increasing his activity level. He has minimal incisional discomfort. He is not requiring narcotics for pain control. He is learning ostomy care. Pathology was reviewed during hospitalization [facility] Medical History Perforation of sigmoid colon due to diverticulitis (11/27/24) No pertinent past medical history Social History Household Members: Unknown / Unable to assess Housing: Unknown / Unable to assess Alcohol intake: former Patient Tobacco Use Status: Tobacco use Unknown Substance Use Type: Unknown service: No Physical Exam Vital Signs: Last Vital Signs Pulse 136 H 11/29/24 07:45 BP 181/93 H 11/29/24 07:45 BMI result Body Mass Index 24.7 GI Other: Abdomen is soft. Incision healing by partial secondary intention. Ostomy functioning well. Copious stool Assessment & Plan Assessment & Plan (1) Status post exploratory laparotomy: Code(s): Z98.890 - Other specified postprocedural states Category: Medical Plan Patient was to continue his convalescence; increasing activity level. Learning ostomy care. Sarabjit chirRyleen. pain. He will see me in a few weeks' time for follow-up. He has a brother was a nurse who patient was states will help him with ostomy care. If there are continued issues with the ostomy, patient has been instructed to call office with Gui Nelson nurse. All questions answered. Patient was see me as directed or p.r.n. Coding Level of Care Code Global (31828) Diagnoses Status post exploratory laparotomy Z98.890
== END 2024-11-29 08:01 | disposition home or self-care (01) ==
PROVIDERS: Visit Provider Surgery
DX: Z98.890 Other specified postprocedural states (principal)
CPT/HCPCS: 99024

== ENCOUNTER → 2024-11-29 07:40 | Outpatient (BNVA) | payer MEDICAID, SELFPAY | PROVIDERS: Visit Provider Surgery | DX: Z48.815 Encounter for surgical aftercare following surgery on the digestive system (principal); Z93.3 Colostomy status | CPT/HCPCS: 99212 ==

== ENCOUNTER 2024-12-20 07:18 | Outpatient (AMB) | payer MEDICAID, SELFPAY ==
--- NOTE | 2024-12-20 07:30 | MHC.OFFVIS ---
Vital Signs 12/20/24 07:34 Height 5 ft 7 in Weight 147 lb BMI 23.0 BP 131/76 Blood Pressure Location Lt brachial Position Sitting Pulse 109 H Intake Visit Reasons: 3-4 week follow up laparotomy, sigmoid resection Intake Note: Patient here s/p sigmoid resection on 11-17-2024. Reports incisions healing well. Patient c/o: discomfort on his surgery incision. Community Board Member Required: No Accompanied by: Self / Same As Patient Allergies No Known Allergies Allergy (Mild, Verified 12/20/24 07:32) NOT APPLICABLE HPI Comments Details: Patient presents for follow-up. His ostomy is functioning well. He has lost appreciable amount of weight since his surgery. He is just not hungry he states. [facility] Medical History (Updated 12/02/24 @ 00:00 by Danuta Sorto) Perforation of sigmoid colon due to diverticulitis (11/27/24) No pertinent past medical history Social History Household Members: Unknown / Unable to assess Housing: Unknown / Unable to assess Alcohol intake: former Patient Tobacco Use Status: Tobacco use Unknown Substance Use Type: Unknown service: No Physical Exam Vital Signs: Last Vital Signs Pulse 109 H 12/20/24 07:34 BP 131/76 12/20/24 07:34 BMI result Body Mass Index 23.0 GI Other: Abdomen is soft. Incision healed. Ostomy functioning well Assessment & Plan Assessment & Plan (1) Status post exploratory laparotomy: Code(s): Z98.890 - Other specified postprocedural states Category: Medical Plan Current plan is see the patient roughly 6 weeks' time for follow-up. I have encouraged him to take nutritional supplements (ensure, boost, Sustacal) and at the next visit arrangements were made for pre colostomy reversal colonoscopy screening (which he has never had before). All questions answered. Coding Level of Care Code Global (67171) Diagnoses Status post exploratory laparotomy Z98.890
[2024-12-20 07:34] VITALS: BP 131/76; PULSE 109; BMI 23.0
== END 2024-12-20 07:49 | disposition home or self-care (01) ==
LOC: HO.HGS 07:19
PROVIDERS: Visit Provider Surgery
DX: Z98.890 Other specified postprocedural states (principal)
CPT/HCPCS: 99024

== ENCOUNTER → 2024-12-20 07:18 | Outpatient (BNVA) | payer MEDICAID, SELFPAY | PROVIDERS: Visit Provider Surgery | DX: Z48.815 Encounter for surgical aftercare following surgery on the digestive system (principal); Z93.2 Ileostomy status; Z98.890 Other specified postprocedural states | CPT/HCPCS: 99212 ==

== ENCOUNTER 2025-01-31 07:59 | Outpatient (AMB) | payer MEDICAID, SELFPAY ==
[2025-01-31 08:26] VITALS: BP 129/82; PULSE 97; BMI 23.5
--- NOTE | 2025-01-31 08:26 | A.OFFVIS_ITS ---
Vital Signs 01/31/25 08:26 Height 5 ft 7 in Weight 150 lb BMI 23.5 BP 129/82 Blood Pressure Location Rt brachial Position Sitting Pulse 97 Intake Visit Reasons: 6 week follow up laparotomy, sigmoid resection Intake Note: Patient here s/p sigmoid resection on 11-17-2024. Reports incisions healing well. Feeling more energetic since surgery. Patient c/o: burning sensation on LUQ inside of stoma site. Running out of supplies. 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 Patient states he is doing well. He states that he has gained a few lb over the last few weeks his diet and appetite have improved. He has been doing well with his ostomy care, he sometimes experiences an i ntermittent burning sensation at the site of the ostomy, however this has been improving over the last week or so. He denies issues with the incision sites. [facility] Medical History (Updated 12/02/24 @ 00:00 by Danuta Sorto) Perforation of sigmoid colon due to diverticulitis (11/27/24) No pertinent past medical history Social History Household Members: Unknown / Unable to assess Housing: Unknown / Unable to assess Alcohol intake: former Patient Tobacco Use Status: Tobacco use Unknown Substance Use Type: Unknown service: No Review of Systems Const All systems reviewed & are unremarkable except as noted in HPI and below GI Reports abdominal pain (Occasional burning sensation at ostomy site), Denies bloating and Denies nausea Physical Exam Vital Signs: Last Vital Signs Pulse 97 01/31/25 08:26 BP 129/82 01/31/25 08:26 BMI result Body Mass Index 23.5 Const General: cooperative, healthy appearing, comfortable and no acute distress Orientation/consciousness: patient oriented x3 Resp Effort & Inspection: normal respiratory effort GI Other: Ostomy site intact, tissue quality is appropriate. Site appears pink and healthy no signs of necrosis. Patient passed moderate-size stool during exam. Inspection: No distended and Yes incision (Healing well, no discharge noted, no erythema) Palpation (GI): Soft to palpation, nontender, no guarding and not rigid Neuro General: patient oriented x3 Assessment & Plan Assessment & Plan (1) Perforation of sigmoid colon due to diverticulitis: Onset Date: 11/27/24 Comment: exploratory laparotomy, sigmoid resection, takedown splenic flexure, end colostomy, Tori's pouch, [place] Code(s): K57.20 - Diverticulitis of large intestine with perforation and abscess without bleeding Category: Medical Plan: see below Plan 59-year-old male seen in the office for 2 month follow-up s/p exploratory laparotomy, sigmoid resection, takedown splenic flexure, end colostomy, Tori's pouch on 11/17/2024. Patient is doing well diet and appetite have improved since his last visit. Notes gaining a few lb since last visit Patient is doing well with ostomy care ostomy site looks healthy. He has been experiencing some burning sensation, although this is improving, which may be secondary to the high acid content in the bag I recommended trialing [id number] Tums to alleviate symptoms. Patient continues to see nursing who discussed further ostomy care and techniques. Additional supplies ordered for patient. Patient's abdominal exam is benign incision site is clear, appropriate stage of healing. Recommend the patient due to advanced cystitis tolerated continue with ostomy care. He can follow-up in 1 month where we will begin to discuss ostomy reversal at that time. Patient can follow-up with any concerns prior to his next appointment as needed Coding Level of Care Code Est Pt Level 3 (16846) Diagnoses Perforation of sigmoid colon due to diverticulitis K57.20 Time Spent (min) 33
== END 2025-01-31 09:30 | disposition home or self-care (01) ==
LOC: HO.HGS 08:00
DX: K57.20 Diverticulitis of large intestine with perforation and abscess without bleeding (principal)
CPT/HCPCS: 99024

== ENCOUNTER → 2025-01-31 07:59 | Outpatient (BNVA) | payer MEDICAID, SELFPAY | DX: Z87.19 Personal history of other diseases of the digestive system (principal); Z93.3 Colostomy status | CPT/HCPCS: 99212 ==

== ENCOUNTER 2025-03-06 10:44 | Outpatient (AMB) | payer MEDICAID, SELFPAY ==
[2025-03-06 10:47] VITALS: BP 132/88; PULSE 101; BMI 23.8
--- NOTE | 2025-03-06 10:47 | MHC.OFFVIS ---
Vital Signs 03/06/25 10:47 Height 5 ft 7 in Weight 152 lb BMI 23.8 BP 132/88 Blood Pressure Location Rt brachial Position Sitting Pulse 101 H Intake Visit Reasons: 1 mth follow up colostomy Intake Note: Patient here s/p colostomy. Last office visit w/Shyam Murry PA-C 01-31-2025. Patient c/o: pain on RUQ not sure if it's gas pain. Reports no changes in medical hx since last visit. 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 Thomason presents for follow up regarding his end colostomy and to discuss reversal. He underwent emergent linus procedure on 11/17/[address] Rico for sepsis, perforated diverticulitis with profound fecal contamination. He has been doing well overall and is managing his ostomy without difficulty. Tolerating solid diet, ostomy functioning well. He reports occasional RLQ and LLQ a few hours after food intake. He then passes a large amount of flatus and stool via ostomy and the pain resolves. He continues to smoke cigarettes and marijuana. He has no concerns. [facility] Medical History (Updated 12/02/24 @ 00:00 by Danuta Sorto) Perforation of sigmoid colon due to diverticulitis (11/27/24) No pertinent past medical history Surgical History (Updated 02/28/25 @ 09:20 by SURJIT Jimenez) History of exploratory laparotomy (11/27/24) Social History Household Members: Unknown / Unable to assess Housing: Unknown / Unable to assess Alcohol intake: former Patient Tobacco Use Status: Tobacco use Unknown Substance Use Type: Unknown service: No Review of Systems Const Denies chills and Denies fever(s) ENT Denies dizziness Resp Denies cough GI Reports as per HPI, Denies nausea and Denies vomiting Skin/Breast Denies rash Neuro Denies dizziness Physical Exam Vital Signs: Last Vital Signs Pulse 101 H 03/06/25 10:47 BP 132/88 03/06/25 10:47 BMI result Body Mass Index 23.8 Const General: comfortable, no acute distress and alert Orientation/consciousness: patient oriented x3 Resp Effort & Inspection: normal respiratory effort GI Other: corpulent abdomen midline incision well healed moderate bulge inferior to ostomy, no increase in size with valsava ostomy pink, appliance intact Palpation (GI): Soft to palpation, nontender and no guarding Skin General skin exam: no rashes or lesions noted Neuro General: patient oriented x3 and moves all extremities Assessment & Plan Assessment & Plan (1) Perforation of sigmoid colon due to diverticulitis: Onset Date: 11/27/24 Comment: exploratory laparotomy, sigmoid resection, takedown splenic flexure, end colostomy, Linus's pouch, [place] Code(s): K57.20 - Diverticulitis of large intestine with perforation and abscess without bleeding Category: Medical Plan 59 year old male who underwent emergent linus procedure on 11/17/24 for perforated diverticulitis. He has been doing well and has no concerns. He states he is in no meraz to have the colostomy reversed. He will need a screening colonoscopy prior, will refer to gastroenterology to get this scheduled. He also has no PCP and he was educated to obtain one and establish care prior to reversal or colonoscopy. He can follow up in 2 months after his colonoscopy to discuss further plans for reversal or sooner if needed. He is comfortable with plan. Orders: Referrals Gastroenterology Referral K57.20 - Diverticulitis of large intestine with perforation and abscess without bleeding Coding Level of Care Code Est Pt Level 3 (56158) Diagnoses Perforation of sigmoid colon due to diverticulitis K57.20
== END 2025-03-06 11:25 | disposition home or self-care (01) ==
LOC: HO.HGS 10:45
PROVIDERS: Visit Provider Physician Assistant Surgical
DX: K57.20 Diverticulitis of large intestine with perforation and abscess without bleeding (principal)
CPT/HCPCS: 99213

== ENCOUNTER → 2025-03-06 10:44 | Outpatient (BNVA) | payer MEDICAID, SELFPAY | PROVIDERS: Visit Provider Physician Assistant Surgical | DX: K57.20 Diverticulitis of large intestine with perforation and abscess without bleeding (principal) | CPT/HCPCS: 99212 ==

== ENCOUNTER 2025-05-08 10:19 | Outpatient (AMB) | payer MEDICAID, SELFPAY ==
--- NOTE | 2025-05-08 10:28 | MHC.OFFVIS ---
Vital Signs 05/08/25 10:41 Height 5 ft 7 in Weight 159 lb BMI 24.9 BP 134/92 H Blood Pressure Location Lt brachial Position Sitting Pulse 86 Intake Visit Reasons: 1 mth follow up colostomy, discuss reversal Intake Note: Patient of Dr Rico is seen to discuss colostomy reversal, post one month follow up. 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 He underwent exploratory laparotomy, sigmoid resection with end colostomy (Tori procedure) as an emergency on 11/17/[address] Rico. He required ICU care with intubation postoperative reports pulling out the ED tube along with the his central incisors in the early postoperative. He currently feels well and reports excellent appetite. His ostomy is functioning normally and he occasionally has some flatus from the rectum. He has an appointment scheduled in the gastroenterology department but has not yet been scheduled for colonoscopy. Once he has been scheduled for colonoscopy arrangements could be made for closure of the colostomy. [facility] Medical History Perforation of sigmoid colon due to diverticulitis (11/27/24) No pertinent past medical history Surgical History History of exploratory laparotomy (11/27/24) Social History Household Members: Unknown / Unable to assess Housing: Unknown / Unable to assess Alcohol intake: former Patient Tobacco Use Status: Tobacco use Unknown Substance Use Type: Unknown service: No Review of Systems Const All systems reviewed & are unremarkable except as noted in HPI and below Physical Exam Vital Signs: Last Vital Signs Pulse 86 05/08/25 10:41 BP 134/92 H 05/08/25 10:41 BMI result Body Mass Index 24.9 Const General: comfortable, no acute distress and alert Orientation/consciousness: patient oriented x3 Resp Effort & Inspection: normal respiratory effort GI Other: corpulent abdomen midline incision well healed moderate bulge inferior to ostomy, no increase in size with valsava ostomy pink, appliance intact Palpation (GI): Soft to palpation, nontender and no guarding Skin General skin exam: no rashes or lesions noted Neuro General: patient oriented x3 and moves all extremities Assessment & Plan Assessment & Plan (1) Perforation of sigmoid colon due to diverticulitis: Onset Date: 11/27/24 Comment: exploratory laparotomy, sigmoid resection, takedown splenic flexure, end colostomy, Troi's pouch, [place] Code(s): K57.20 - Diverticulitis of large intestine with perforation and abscess without bleeding Category: Medical (2) Status post exploratory laparotomy: Code(s): Z98.890 - Other specified postprocedural states Category: Surgical (3) Colostomy in place: Code(s): Z93.3 - Colostomy status Category: Medical Plan 59-year-old male patient presenting for evaluation of closure of colostomy. He currently feels very well and denies any abdominal pain, nausea or vomiting. His ostomy is functioning normally as well. He is scheduled for a consultation with the Gastroenterology Department at which time arrangements will be made for colonoscopy. Once this is scheduled we can make arrangements for closure of colostomy. I reviewed the procedure, risks and alternatives in detail and he consents to the closure of colostomy. She will be scheduled as a short-stay admit he will need a mechanical bowel prep and oral antibiotics on the day prior to surgery Coding Level of Care Code Est Pt Level 3 (46037) Diagnoses Perforation of sigmoid colon due to diverticulitis K57.20 Status post exploratory laparotomy Z98.[address] Z93.3
[2025-05-08 10:41] VITALS: BP 134/92; PULSE 86; BMI 24.9
== END 2025-05-08 10:52 | disposition home or self-care (01) ==
LOC: HO.HGS 10:20
PROVIDERS: Visit Provider Surgery
DX: K57.20 Diverticulitis of large intestine with perforation and abscess without bleeding (principal); Z98.890 Other specified postprocedural states; Z93.3 Colostomy status
CPT/HCPCS: 99213

== ENCOUNTER → 2025-05-08 10:19 | Outpatient (BNVA) | payer MEDICAID, SELFPAY | PROVIDERS: Visit Provider Surgery | DX: K57.20 Diverticulitis of large intestine with perforation and abscess without bleeding (principal); Z98.890 Other specified postprocedural states; Z93.3 Colostomy status | CPT/HCPCS: 99212 ==

== ENCOUNTER 2025-05-31 11:02 | Outpatient (AMB) | payer MEDICAID, SELFPAY ==
--- NOTE | 2025-05-31 11:06 | MHC.OFFVIS ---
Vital Signs 05/31/25 11:19 Height 5 ft 7 in Weight 161 lb BMI 25.2 BP 113/77 Blood Pressure Location Lt brachial Position Sitting Pulse 92 Oxygen Delivery Method Room Air Oxygen Flow Rate 96 Intake Visit Reasons: Diverticulitis / colo screening Intake Note: Patient new consult for Diverticulitis and 1st pre colonoscopy screening. Patient cc: soft stool due a Colostomy bag, denies any other GI issues. 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 Referred by General surgery for pre colonoscopy screening prior to colostomy reversal. Patient is accompanied by his dog Glenys. Colostomy was placed in November 2024 following a perforated sigmoid colon, reportedly due to severe diverticulitis. Colostomy output is regular, described as creamy peanut butter in consistency, without visible blood. Reports residual burning pain at the lower end of the surgical scar, attributed by surgical provider to scar tissue, with marked improvement over the past six weeks. Occasional gas-related discomfort is noted but no other GI symptoms. Weight has stabilized between 159?161 lbs post-op, down from 174?175 lbs pre-op, with no recent unexplained weight changes. Relevant comorbidities include a remote history of [place] at age 21 due to cocaine use. Family history notable for mother and maternal grandmother both requiring colostomy for diverticulitis. No personal or family history of GI malignancy. Patient expresses concern about procedural risks due to a family member?s prior colonoscopy complication. Patient denies nausea, vomiting, heartburn, abdominal pain, or appetite changes. No significant systemic symptoms Social hx: -History of alcohol and cocaine dependency, currently in remission for 32 years. - Regular cannabis use reported. -current 1pdd smoker - family hx as below -denies personal hx of CA -denies significant cardiopulmonary history -tolerated anesthesia in the past without difficulty. [facility] Medical History (Updated 05/31/25 @ 12:23 by Ankita Prasad CNP) Anemia Colon cancer screening Perforation of sigmoid colon due to diverticulitis (11/27/24) No pertinent past medical history Surgical History History of exploratory laparotomy (11/27/24) Family History (Updated 05/31/25 @ 11:41 by Ankita Prasad CNP) Mother Diverticular disease of colon Social History Household Members: Unknown / Unable to assess Housing: Unknown / Unable to assess Alcohol intake: former Patient Tobacco Use Status: Tobacco use Unknown Substance Use Type: Unknown service: No Review of Systems Const Reports as per HPI ENT Reports as per HPI Card Reports as per HPI Resp Reports as per HPI GI Reports as per HPI Reports as per HPI Physical Exam Vital Signs: Last Vital Signs Pulse 92 05/31/25 11:19 BP 113/77 05/31/25 11:19 Oxygen Delivery Method Room Air 05/31/25 11:19 Oxygen Flow Rate 96 05/31/25 11:19 BMI result Body Mass Index 25.2 Const General: healthy appearing, no acute distress and well developed Nutritional Appearance: average body habitus Orientation/consciousness: patient oriented x3 HEENT Head: Yes normal to inspection, Yes normocephalic and Yes atraumatic Face and sinus: Yes normal facial exam Eyes General: appearance normal, both eyes and all related structures Neck Neck: Yes normal visual inspection Resp Effort & Inspection: normal respiratory effort, able to speak in complete sentences, no tracheal deviation and symmetric chest movement Auscultation: clear to auscultation bilaterally Cardio Jugular venous distension: no JVD Rate: regular rate Rhythm: regular rhythm Heart sounds: S1 normal heart sound present, S2 normal heart sound present, no gallops and no murmurs GI Inspection: Yes normal to inspection, No distended and Yes other (colostomy LLQ -stoma healthy, expected redness. ) Neuro General: patient oriented x3 Gait exam (Neuro): Normal gait present Psych Appearance: grossly normal Mental Status: mental status grossly normal Speech and movement: Normal speech and movement present Affect: normal affect Attitude: cooperative Thought process: Normal thought process present Thought content: Normal thought content present Insight: Good insight present (Psych) Judgement: Good judgement present (Psych) Assessment & Plan Assessment & Plan (1) Colostomy in place: Code(s): Z93.3 - Colostomy status Category: Medical Plan: as below (2) Colon cancer screening: Code(s): Z12.11 - Encounter for screening for malignant neoplasm of colon Category: Medical Plan: as below (3) Anemia: Code(s): D64.9 - Anemia, unspecified Category: Medical Qualifiers: Anemia type: unspecified type Qualified Code(s): D64.9 - Anemia, unspecified Plan: as below Plan Required evaluation prior to colostomy reversal; ensure safe for colonoscopy. Procedural risk reviewed; including but not limited to perforation, infection, bleeding. He is agreeable to proceeding. Additional Testing: Repeat H/H and iron studies to assess for anemia; order placed. Medication Management: Bowel prep?Miralax mixed with 64 oz Gatorade (avoid red/blue/purple), plus 4 lax tabs. Lifestyle Recommendations: -Strict adherence to prep instructions. -Clear liquid diet day prior procedure; NPO instructions reviewed. -Titrate prep: Monitor colostomy output; once output is clear/yellow and watery (like beer), may stop prep?may not require full 64 oz. If not clear, continue in quartered doses until desired consistency/color achieved. -Avoid solid foods and colored liquids as above. -Arrange transportation due to sedation. Follow-up after colonoscopy or sooner if needed Time: I spent a total of 45 minutes on the date of encounter which includes: Preparing to see the patient (reviewed previous documentation, test results and medical history) Performing a medically appropriate exam and/or evaluation Ordering medications, tests, and procedures Documenting clinical information in the health record Orders: Orders Complete Blood Count Auto Diff Today D64.9 - Anemia, unspecified IRON PROFILE Today D64.9 - Anemia, unspecified Medications: New bisacodyl (Dulcolax (bisacodyl)) Take four tablets pre colonoscopy instructions 20 mg (4 x 5 mg) PO ONCE 4 tabs 0RF 1 day polyethylene glycol 3350 (Miralax) per colonoscopy prep instructions 238 grams PO ONCE 238 grams 0RF Coding Level of Care Code New Pt New Pt Level 4 (34119) Patient Type New Diagnoses Colostomy in place Z93.3 Colon cancer screening Z12.11 Anemia, unspecified type D64.9 Anemia type: unspecified type
[2025-05-31 11:19] VITALS: BP 113/77; PULSE 92; BMI 25.2
== END 2025-05-31 12:10 | disposition home or self-care (01) ==
LOC: HO.HGI 11:03
PROVIDERS: Visit Provider Nurse Practitioner Family
DX: Z01.818 Encounter for other preprocedural examination (principal); Z12.11 Encounter for screening for malignant neoplasm of colon; Z93.3 Colostomy status; D64.9 Anemia, unspecified
CPT/HCPCS: 99204

== ENCOUNTER → 2025-05-31 11:02 | Outpatient (BNVA) | payer MEDICAID, SELFPAY | PROVIDERS: Visit Provider Nurse Practitioner Family | DX: Z01.818 Encounter for other preprocedural examination (principal); Z93.3 Colostomy status; D64.9 Anemia, unspecified | CPT/HCPCS: 99212 ==